=== PATIENT | male | born 2000 | race Caucasian/White ===

== ENCOUNTER 2022-02-01 16:09 | Outpatient (CLI) | payer OTHER, SELFPAY | END 2022-02-01 16:10 | disposition home or self-care (01) | PROVIDERS: Visit Provider Nurse Practitioner Adult Health | DX: Z11.1 Encounter for screening for respiratory tuberculosis (principal) | CPT/HCPCS: 36415; 86480 ==

== ENCOUNTER 2023-09-21 06:57 | Outpatient (CLI) | payer OTHER, SELFPAY | END 2023-09-21 06:58 | disposition home or self-care (01) | LOC: AMB 09-25 18:58 | PROVIDERS: Visit Provider Family Medicine | DX: R07.89 Other chest pain (principal) | CPT/HCPCS: A0425; A0427 ==

== ENCOUNTER 2023-09-21 07:22 | Emergency (ER) | payer OTHER, SELFPAY ==
[2023-09-21 07:32] VITALS: BP 114/78; PULSE 82; RESP 16; TEMP 36.8; O2SAT 97; BMI 32.0
[2023-09-21 07:47] VITALS: O2SAT 97
--- NOTE | 2023-09-21 07:47 | CRLHL7_ITS ---
For Patients: As a result of the Century Cures Act, medical imaging exams and procedure reports are released immediately into your electronic medical record. You may view this report before your referring provider. If you have questions, please contact your health care provider. INDICATION: Right-sided chest pain COMPARISON: None TECHNIQUE: PA and lateral views of the chest were acquired FINDINGS: TUBES AND LINES: None. HEART AND MEDIASTINUM: The heart size is normal. The mediastinal contour appears normal for patient age. LUNGS AND PLEURAL SPACES: The lungs appear normal.The pleural spaces are unremarkable. OSSEOUS STRUCTURES: Age-appropriate appearance. No acute focal finding. IMPRESSION: No evidence of active pulmonary disease. Dictated by Quan Martínez MD @ 09/21/2023 8:20:59 AM (Electronically Signed)
--- NOTE | 2023-09-21 07:49 | ED_ITS ---
HPI - Chest Pain General Date Seen: 09/21/23 <Jey Aguilar MD - Last Filed: 10/08/23 16:01> Chief Complaint: Chest Pain <Jey Aguilar MD - Last Filed: 10/08/23 16:01> Stated Complaint: Chest pain <Jey Aguilar MD - Last Filed: 10/08/23 16:01> Time Seen by Provider: 09/21/23 07:33 <Jey Aguilar MD - Last Filed: 10/08/23 16:01> Source: patient, EMS and RN notes reviewed <Jey Aguilar MD - Last Filed: 10/08/23 16:01> Mode of arrival: ambulatory <Jey Aguilar MD - Last Filed: 10/08/23 16:01> Limitations: no limitations <Jey Aguilar MD - Last Filed: 10/08/23 16:01> History of Present Illness HPI narrative: Patient is a 22-year-old gentleman who presents here by EMS with chest pain he describes it on his right side, came on yesterday at 4:00 p.m.. Notes that the came on suddenly. Was not associated with coughing, notes are some radiation to his right side of his back. When he takes a deep breath in. Denies any abdominal pain, this makes him feel sweaty, he did take 400 mg of ibuprofen yesterday after this came on and felt better in approximately 1 hour and is able to do normal activities, but it was still there in the background. Noted today that it was worse when he woke up, he like to set up, as opposed to lay back, this is worse with this position. Never before had this but has been to the hospital, in [facility] twice, for chest discomfort on the left side, that was worked up in normal, noted also to have some sort of issue with this neck also on another visit. No past history personally of heart or lung issues for him. There is no family history as far as he knows is heart disease in the family, no history of diabetes hypertension, or structural heart disease. Does occasionally use tobacco and marijuana, no other use of alcohol or drugs. Is on no chronic medications, has no known allergies. Received fentanyl 25 mcg in the ambulance, along with by history aspirin 324 mg, we are checking on this. Student at [employer]. <Jey Aguilar MD - Last Filed: 10/08/23 16:01> Associated symptoms: nausea and diaphoresis <Jey Aguilar MD - Last Filed: 10/08/23 16:01> Treatment prior to arrival: aspirin <Jey Aguilar MD - Last Filed: 10/08/23 16:01> Related Data Home Medications: Home Medications ?Medication ?Instructions ?Recorded ?Confirmed ibuprofen 09/21/23 <Jey Aguilar MD - Last Filed: 10/08/23 16:01> Allergies/Adverse Reactions: Allergies Allergy/AdvReac Type Severity Reaction Status Date / Time No Known Drug Allergies Allergy Verified 10/03/23 12:12 <Jey Aguilar MD - Last Filed: 10/08/23 16:01> Review of Systems Status of ROS Reports: 10 or more systems reviewed and unremarkable except as noted in History and below <Jey Aguilar MD - Last Filed: 10/08/23 16:01> [facility] Social History: Social History Smoking Status: Current some day smoker What tobacco products do you use: cigarettes How often do you have a drink containing alcohol: monthly or less AUDIT-C Alcohol total score: 1 Non-prescribed substance use: denies use <Jey Aguilar MD - Last Filed: 10/08/23 16:01> Exam Narrative Exam Narrative: I find him in room 3 sitting up, he appears to be in no distress speaking to me normally, but is splinting a little bit on the right side when he takes a deep breath in. Appears to be nontoxic, vital signs assessed and normal. Pupils are equal round reactive to light there is no scleral icterus redness is TMs are normal his oropharynx is normal there is no adenopathy anterior posterior chains his chest is good air entry bilaterally but somewhat diminished on the right side compared to the left, no extra sounds such as a rub. heart sounds are otherwise normal with no clicks murmurs or gallops, no tenderness to palpation over his chest, he is sweaty. Abdomen is soft, there is no guarding no organomegaly, negative Haile sign, bowel sounds are normal no CVA tenderness, and no tenderness over his thoracic or his lumbar on a examination skin reveals no rashes he is neurologically intact in his upper lower extremities with normal movement normal strength symmetrical, and there is no evidence of any unilateral or bilateral swelling in his lower extremities to suggest DVT. <Jey Aguilar MD - Last Filed: 10/08/23 16:01> Const Vital Signs, click to edit/add: Vital Signs - 24 hr 09/21/23 07:32 09/21/23 07:47 Temperature 98.3 F Pulse Rate [Pulse Oximeter] 82 Respiratory Rate 16 Blood Pressure [Left Upper Arm] 114/78 Pulse Oximetry 97 97 Oxygen Delivery Method Room Air <Jey Aguilar MD - Last Filed: 10/08/23 16:01> Vital Signs - 24 hr 09/21/23 07:32 09/21/23 07:47 Temperature 98.3 F Pulse Rate [Pulse Oximeter] 82 Respiratory Rate 16 Blood Pressure [Left Upper Arm] 114/78 Pulse Oximetry 97 97 Oxygen Delivery Method Room Air <Tricia Park MD - Last Filed: 09/21/23 09:16> Documenting provider has reviewed patient's vital signs: yes <Jey Aguilar MD - Last Filed: 10/08/23 16:01> Course Reevaluation(s) Time of Reevaluation #1: 09:11 <Tricia Park MD - Last Filed: 09/21/23 09:16> Reevaluation #1: Patient is feeling much better. Have reviewed negative chest x-ray for pneumothorax. His troponin is normal, his symptoms started yesterday afternoon, solitary troponin should be sufficient in this situation. His white count is normal, D-dimer is normal. He does relate to me right-sided pleuritic type chest pain. We did review pleurisy, positional changes still may make this a possibility of pericarditis, did review that. In any event he has no hemodynamic changes, labs are all normal, EKG is normal. We will plan to discharge on a course of Toradol. There is limited options for pharmacies, he does not think he can make it down to [facility]. Will give him the 5 day course of Toradol from [facility]. <Tricia Park MD - Last Filed: 09/21/23 09:16> Vital Signs Vital signs: Initial Vital Signs Temperature 98.3 F 09/21/23 07:32 Temperature Source Oral 09/21/23 07:32 Pulse Rate 82 09/21/23 07:32 Respiratory Rate 16 09/21/23 07:32 Blood Pressure 114/78 09/21/23 07:32 Blood Pressure Mean 90 09/21/23 07:32 Blood Pressure Position Sitting 09/21/23 07:32 Pulse Oximetry 97 09/21/23 07:32 Oxygen Delivery Method Room Air 09/21/23 07:32 Vital Signs Temperature 98.3 F 09/21/23 07:32 Pulse Rate 82 09/21/23 07:32 Respiratory Rate 16 09/21/23 07:32 Blood Pressure 114/78 09/21/23 07:32 Pulse Oximetry 97 09/21/23 07:32 Oxygen Delivery Method Room Air 09/21/23 07:32 Temperature 98.3 F 09/21/23 07:32 Pulse Rate 94 09/21/23 09:32 Respiratory Rate 16 09/21/23 09:32 Blood Pressure 123/77 09/21/23 09:32 Pulse Oximetry 97 09/21/23 09:32 Oxygen Delivery Method Room Air 09/21/23 09:32 <Jey Aguilar MD - Last Filed: 10/08/23 16:01> Initial Vital Signs Temperature 98.3 F 09/21/23 07:32 Temperature Source Oral 09/21/23 07:32 Pulse Rate 82 09/21/23 07:32 Respiratory Rate 16 09/21/23 07:32 Blood Pressure 114/78 09/21/23 07:32 Blood Pressure Mean 90 09/21/23 07:32 Blood Pressure Position Sitting 09/21/23 07:32 Pulse Oximetry 97 09/21/23 07:32 Oxygen Delivery Method Room Air 09/21/23 07:32 Vital Signs Temperature 98.3 F 09/21/23 07:32 Pulse Rate 82 09/21/23 07:32 Respiratory Rate 16 09/21/23 07:32 Blood Pressure 114/78 09/21/23 07:32 Pulse Oximetry 97 09/21/23 07:32 Oxygen Delivery Method Room Air 09/21/23 07:32 Temperature 98.3 F 09/21/23 07:32 Pulse Rate 94 09/21/23 09:32 Respiratory Rate 16 09/21/23 09:32 Blood Pressure 123/77 09/21/23 09:32 Pulse Oximetry 97 09/21/23 09:32 Oxygen Delivery Method Room Air 09/21/23 09:32 <Tricia Park MD - Last Filed: 09/21/23 09:16> Medications Administered Medications: Discontinued Medications Generic Name Dose Route Start Last Admin Trade Name Freq PRN Reason Stop Dose Admin Sodium Chloride 1,000 mls @ 1,000 mls/hr 09/21/23 08:00 09/21/23 09:25 0.9 % Sodium Chloride 1000 Ml IV 09/21/23 08:59 Infused .Q1H MILLICENT Infusion Ketorolac Tromethamine 30 mg 09/21/23 07:48 09/21/23 08:25 Ketorolac 30 Mg/Ml Inj IVP 09/21/23 07:49 30 mg ONCE ONE Administration <Jey Aguilar MD - Last Filed: 10/08/23 16:01> Discontinued Medications Generic Name Dose Route Start Last Admin Trade Name Freq PRN Reason Stop Dose Admin Sodium Chloride 1,000 mls @ 1,000 mls/hr 09/21/23 08:00 09/21/23 09:25 0.9 % Sodium Chloride 1000 Ml IV 09/21/23 08:59 Infused .Q1H MILLICENT Infusion Ketorolac Tromethamine 30 mg 09/21/23 07:48 09/21/23 08:25 Ketorolac 30 Mg/Ml Inj IVP 09/21/23 07:49 30 mg ONCE ONE Administration <Tricia Park MD - Last Filed: 09/21/23 09:16> MDM - Chest Pain MDM Narrative Medical decision making narrative: During the evaluation of this patient I considered multiple differential diagnosis is. The life-threatening differential diagnosis include coronary disease/[place], pulmonary embolism, pneumothorax, pneumonia, and aortic dissection. Other differential diagnosis included but were not limited to pericarditis, myocarditis, chest wall pain, GERD, esophageal rupture, rib fracture contusion, pleurisy, as well as other etiologies. <Jey Aguilar MD - Last Filed: 10/08/23 16:01> Differential Diagnosis Differential diagnosis: Likely fracture of rib, pneumothorax, stable angina, unstable angina pectoris, atypical chest pain, st elevation myocardial infarction, costochondritis, chest pain and biliary colic <Jey Aguilar MD - Last Filed: 10/08/23 16:01> Medical Records Data Attestation: I reviewed the patient's medical records. <Jey Aguilar MD - Last Filed: 10/08/23 16:01> Lab Data Attestation: I reviewed the patient's lab results. <Tricia Park MD - Last Filed: 09/21/23 09:16> Labs: Lab Results 09/21/23 09/21/23 Range/Units 07:55 08:00 WBC 10.50 (4.50-11.00) K/uL RBC 5.88 (4.30-5.90) m/uL Hgb 16.1 (13.5-17.5) gm/dL Hct 47.0 (37.0-53.0) % MCV 80 (80-100) fL MCH 27 (26-34) pg MCHC 34 (32-36) gm/dL RDW Coeff of [place] 12.4 (11.5-15.5) % Plt Count 249 (140-440) K/uL Neut % (Auto) 65.8 (42.0-72.0) % Lymph % (Auto) 26.5 (20-44) % [place] % (Auto) 5.8 (0.0-11.0) % Eos % (Auto) 1.3 (0.0-7.0) % Baso % (Auto) 0.4 (0.0-3.0) % Neut # (Auto) 6.91 (1.7-7.0) K/uL Lymph # (Auto) 2.78 (0.90-2.90) K/uL [place] # (Auto) 0.60 (0.00-0.90) K/UL Eos # (Auto) 0.14 (0.00-0.50) K/uL Baso # (Auto) 0.04 (0.00-0.30) K/uL Abs Immat Gran (auto) 0.02 (0.00-0.30) K/uL Imm/Tot Granulo (auto) 0.2 % D-Dimer Quant (PE/DVT) < 0.27 (0.00-0.50) ug/ml Sodium 138 (135-149) mmol/L Potassium 3.6 (3.6-5.1) mmol/L Chloride 105 (96-114) mmol/L Carbon Dioxide 24 (20-32) mmol/L Anion Gap 9 (7-15) mEq/L BUN 14 (5-24) mg/dL Creatinine 0.7 (0.5-1.5) mg/dL Estimated Creat Clear 184.76 Estimated GFR 135 ml/min Glucose 123 H (60-115) mg/dL Calcium 8.9 (8.4-10.6) mg/dL Total Bilirubin 0.4 (0.1-1.5) mg/dL Direct Bilirubin 0.3 (0.0-0.5) mg/dL AST 28 (12-35) U/L ALT 39 (4-50) U/L Alkaline Phosphatase 68 (40-150) U/L C-Reactive Protein 1.8 H (0.5-1.0) mg/dL Total Protein 7.8 (6.0-8.3) g/dL Albumin 4.8 (3.3-5.0) g/dL Lipase 160 (23-300) U/L SARS-CoV-2 (PCR) Negative SARS-CoV-2 (Negative) Influenza Type A (PCR) Negative PCR FLU A (Negative) Influenza Type B (PCR) Negative PCR FLU B (Negative) RSV (PCR) Negative PCR RSV (Negative) POC Troponin I 0.00 L (0.01-0.04) ng/ml <Jey Aguilar MD - Last Filed: 10/08/23 16:01> Lab Results 09/21/23 09/21/23 Range/Units 07:55 08:00 WBC 10.50 (4.50-11.00) K/uL RBC 5.88 (4.30-5.90) m/uL Hgb 16.1 (13.5-17.5) gm/dL Hct 47.0 (37.0-53.0) % MCV 80 (80-100) fL MCH 27 (26-34) pg MCHC 34 (32-36) gm/dL RDW Coeff of [place] 12.4 (11.5-15.5) % Plt Count 249 (140-440) K/uL Neut % (Auto) 65.8 (42.0-72.0) % Lymph % (Auto) 26.5 (20-44) % [place] % (Auto) 5.8 (0.0-11.0) % Eos % (Auto) 1.3 (0.0-7.0) % Baso % (Auto) 0.4 (0.0-3.0) % Neut # (Auto) 6.91 (1.7-7.0) K/uL Lymph # (Auto) 2.78 (0.90-2.90) K/uL [place] # (Auto) 0.60 (0.00-0.90) K/UL Eos # (Auto) 0.14 (0.00-0.50) K/uL Baso # (Auto) 0.04 (0.00-0.30) K/uL Abs Immat Gran (auto) 0.02 (0.00-0.30) K/uL Imm/Tot Granulo (auto) 0.2 % D-Dimer Quant (PE/DVT) < 0.27 (0.00-0.50) ug/ml Sodium 138 (135-149) mmol/L Potassium 3.6 (3.6-5.1) mmol/L Chloride 105 (96-114) mmol/L Carbon Dioxide 24 (20-32) mmol/L Anion Gap 9 (7-15) mEq/L BUN 14 (5-24) mg/dL Creatinine 0.7 (0.5-1.5) mg/dL Estimated Creat Clear 184.76 Estimated GFR 135 ml/min Glucose 123 H (60-115) mg/dL Calcium 8.9 (8.4-10.6) mg/dL Total Bilirubin 0.4 (0.1-1.5) mg/dL Direct Bilirubin 0.3 (0.0-0.5) mg/dL AST 28 (12-35) U/L ALT 39 (4-50) U/L Alkaline Phosphatase 68 (40-150) U/L C-Reactive Protein 1.8 H (0.5-1.0) mg/dL Total Protein 7.8 (6.0-8.3) g/dL Albumin 4.8 (3.3-5.0) g/dL Lipase 160 (23-300) U/L SARS-CoV-2 (PCR) Negative SARS-CoV-2 (Negative) Influenza Type A (PCR) Negative PCR FLU A (Negative) Influenza Type B (PCR) Negative PCR FLU B (Negative) RSV (PCR) Negative PCR RSV (Negative) POC Troponin I 0.00 L (0.01-0.04) ng/ml <Tricia Park MD - Last Filed: 09/21/23 09:16> Imaging Data Chest x-ray: Attestation: I have reviewed the pertinent imaging results. <Tricia Junior MD - Last Filed: 09/21/23 09:16> Radiologist's impression: Patient: JIMMY GUTIERRZE Facility:?[facility] Patient ID:?[id number] Site Patient ID:?[id number]. Site :?[id number] Study:?XRay-Chest 2V-09/21/2023 8:15:48 AM Ordering Physician:?Lauren Khanna Final Report: INDICATION: Right-sided chest pain COMPARISON: None TECHNIQUE: PA and lateral views of the chest were acquired FINDINGS: TUBES AND LINES: None. HEART AND MEDIASTINUM: The heart size is normal. The mediastinal contour appears normal for patient age. LUNGS AND PLEURAL SPACES: The lungs appear normal.The pleural spaces are unremarkable. OSSEOUS STRUCTURES: Age-appropriate appearance. No acute focal finding. IMPRESSION: No evidence of active pulmonary disease. Dictated by Quan Martínez MD @ 09/21/2023 8:20:59 AM (Electronic Signature) <Tricia Park MD - Last Filed: 09/21/23 09:16> ECG Data Attestation: I personally reviewed and interpreted this ECG as follows: <Jey Aguilar MD - Last Filed: 10/08/23 16:01> ECG interpretation date: 09/21/23 <Jey Aguilar MD - Last Filed: 10/08/23 16:01> Interpretation: EKG shows normal sinus rhythm, with a ventricular rate of 77, QRS QT PA intervals are all normal, no acute ST wave changes assessment: Normal EKG <Jey Aguilar MD - Last Filed: 10/08/23 16:01> Discharge Plan Discharge Clinical Impression: Acute pleurisy without pleural effusion <Jey Aguilar MD - Last Filed: 10/08/23 16:01> Patient Disposition: Home, Self-Care <Jey Aguilar MD - Last Filed: 10/08/23 16:01> Condition: Stable <Jey Aguilar MD - Last Filed: 10/08/23 16:01> Instructions: Pleurisy (ED) <Jey Aguilar MD - Last Filed: 10/08/23 16:01> Additional Instructions: Start Toradol and follow-up prescription instructions, can take as needed for your pain following the prescription instructions. Can supplement with Tylenol per bottle directions well on the Toradol. Once you are done with Toradol, can resume ibuprofen if you still need it. Hopefully your symptoms shell improve over the next week. If at any point you are worsening, develops fever, have increased difficulty breathing or develop cough/symptoms of infection, do recommend re-evaluation. <Jey Aguilar MD - Last Filed: 10/08/23 16:01> Activity Level: Activity as Tolerated <Jey Aguilar MD - Last Filed: 10/08/23 16:01> Activity as Tolerated <Tricia Park MD - Last Filed: 09/21/23 09:16> Discharge Diet: Regular <Jey Aguilar MD - Last Filed: 10/08/23 16:01> Regular <Tricia Park MD - Last Filed: 09/21/23 09:16> Prescriptions: No Action ibuprofen <Jey Aguilar MD - Last Filed: 10/08/23 16:01> Follow Up/Referrals: Provider,Not a Local [Primary Care Provider] - <Jey Aguilar MD - Last Filed: 10/08/23 16:01> Stand Alone Forms: [facility] Info Instructions <Jey Aguilar MD - Last Filed: 10/08/23 16:01>
[2023-09-21 08:15] LABS: Basophils Absolute Auto 0.04 K/uL (0.00-0.30); Basophils Percent Auto 0.4 % (0.0-3.0); Eosinophils Absolute Auto 0.14 K/uL (0.00-0.50); Eosinophils Percent Auto 1.3 % (0.0-7.0); Hemoglobin* 16.1 gm/dL (13.5-17.5); Immature Granulocytes Abs Auto 0.02 K/uL (0.00-0.30); Immature Granulocytes Pct Auto 0.2 %; Lymphocytes Absolute Auto 2.78 K/uL (0.90-2.90); Lymphocytes Percent Auto 26.5 % (20-44); Mean Corpuscular HGB Conc 34 gm/dL (32-36); Mean Corpuscular Hemoglobin 27 pg (26-34); Mean Corpuscular Volume 80 fL (80-100); Monocytes Percent Auto 5.8 % (0.0-11.0); Neutrophils Absolute Auto 6.91 K/uL (1.7-7.0); Neutrophils Percent Auto 65.8 % (42.0-72.0); Platelet Count* 249 K/uL (140-440); RDW Coefficient of Variation % 12.4 % (11.5-15.5); Red Blood Count 5.88 m/uL (4.30-5.90)
[2023-09-21 08:16] LABS: Slide Review Reflex No
[2023-09-21] MEDS: 0.9 % SODIUM CHLORIDE 1000 ml 1,000 ML IV (08:25)
[2023-09-21] MEDS: KETOROLAC 30 MG/ML inj IVP (08:25)
[2023-09-21 08:27] LABS: Albumin* 4.8 g/dL (3.3-5.0); Chloride* 105 mmol/L (96-114)
[2023-09-21 08:28] LABS: Potassium* 3.6 mmol/L (3.6-5.1); Sodium* 138 mmol/L (135-149)
[2023-09-21 08:30] VITALS: BP 121/79; PULSE 76; RESP 16; O2SAT 98
[2023-09-21 08:30] LABS: Creatinine* 0.7 mg/dL (0.5-1.5); Est. Creatinine Clearance* 184.76; Estimated Glomerular Filt Rate 135 ml/min
[2023-09-21 08:31] LABS: Alanine Aminotransferase* 39 U/L (4-50); Alkaline Phosphatase* 68 U/L (40-150); Anion Gap 9 mEq/L (7-15); Aspartate Amino Transferase* 28 U/L (12-35); Bilirubin Direct* 0.3 mg/dL (0.0-0.5); Bilirubin Total* 0.4 mg/dL (0.1-1.5); Blood Urea Nitrogen* 14 mg/dL (5-24); Calcium* 8.9 mg/dL (8.4-10.6); Carbon Dioxide* 24 mmol/L (20-32); Glucose* 123 mg/dL (60-115); Lipase* 160 U/L (23-300); Total Protein* 7.8 g/dL (6.0-8.3)
[2023-09-21 08:34] LABS: C Reactive Protein* 1.8 mg/dL (0.5-1.0); D Dimer Quantitative* < 0.27 ug/ml (0.00-0.50)
[2023-09-21 09:03] LABS: PCR FLU A Negative PCR FLU A (Negative); PCR FLU B Negative PCR FLU B (Negative); PCR RSV Negative PCR RSV (Negative); SARS PCR* Negative SARS-CoV-2 (Negative)
[2023-09-21 09:25] VITALS: PULSE 88; O2SAT 96
[2023-09-21 09:30] VITALS: PULSE 84; O2SAT 97
[2023-09-21 09:32] VITALS: BP 123/77; PULSE 94; RESP 16; O2SAT 97
== END 2023-09-21 09:38 | disposition home or self-care (01) ==
PROVIDERS: Emergency Provider Family Medicine
DX: R09.1 Pleurisy (principal)
CPT/HCPCS: 36415; 71046; 80048; 80076; 83690; 84484; 85025; 85379; 86140; 87631; 93005; 94761; 96361; 96374; 99284; J1885; J7030

== ENCOUNTER 2023-10-03 12:08 | Emergency (ER) | payer OTHER, SELFPAY ==
[2023-10-03] VITALS (7 sets, daily range): BP systolic 131; BP diastolic 91; PULSE 76–92; RESP 16; TEMP 35.9; O2SAT 95–97; BMI 37.4
--- NOTE | 2023-10-03 12:34 | ED_ITS ---
HPI - General Adult General Chief complaint: Shortness of Breath/Dyspnea Stated complaint: chest pain Time Seen by Provider: 10/03/23 12:16 History of Present Illness HPI narrative: c/o pain in the back and right shoulder pain. pt states that they were seen here on the 20 of september and was diagnosed with acute pleurisy. pt took 325mg of Tylenol at 1100. 22-year-old man presenting to the emergency department with concern of continued pain in the right chest and radiating into his back/right shoulder. He is just thinks that he probably should be better by now. Has been taking ketorolac regularly. Has also been taking ibuprofen. A maybe that he even got worse though after dosings of ibuprofen. Waxes and wanes in intensity. He describes a sharp pain clearly pleuritic. Particularly bad the with rotation. All began after having a smoke with a friend. Further discussion does reveal fairly regular cigarette smoking. Goes through a pack a week he discloses. When seen here 12 days ago was diagnosed with pleurisy/pleuritis and treated this above. D-dimer was negative at that time. Chest x-ray also was done. He has been doing some reading and now is concerns about potential evolution of pleural effusion. He wonders whether not sleeping in a colder environment may have contributed to this event. He would like to know why this happens. Is even worried about potential lung cancer. I remind him that the chest x-ray looks clear in that regard. No fever. Has not had any lower extremity pain or swelling. Related Data Home Medications ?Medication ?Instructions ?Recorded ?Confirmed ibuprofen 09/21/23 Allergies Allergy/AdvReac Type Severity Reaction Status Date / Time No Known Drug Allergies Allergy Verified 10/03/23 12:12 Review of Systems Status of ROS: Reports: 6 or more systems reviewed and unremarkable except as noted in History and below [facility] Social History Smoking Status: Current some day smoker What tobacco products do you use: cigarettes How often do you have a drink containing alcohol: monthly or less AUDIT-C Alcohol total score: 1 Non-prescribed substance use: denies use Exam Narrative: Exam Narrative: Pleasant. NAD. Splinting a little bit in his breathing. Mildly tachypneic. Lungs are clear. Heart with regular rate rhythm without murmur rub or gallop. Abdomen is soft and nontender. Skin is warm dry without rash. Pain is not reproducible to palpation over the chest wall or the back/shoulders. Strong and equal carotid upstroke. No supraclavicular crepitus. Or extremities without edema or pain. Const: Vital Signs, click to edit/add: Vital Signs - 24 hr 10/03/23 12:13 10/03/23 12:36 10/03/23 12:45 Temperature 96.6 F L Pulse Rate 79 76 Pulse Rate [Pulse Oximeter] 80 Respiratory Rate 16 Blood Pressure [Ri ght Upper Arm] 131/91 H Pulse Oximetry 97 96 96 Oxygen Delivery Me thod Room Air 10/03/23 13:00 10/03/23 13:15 10/03/23 13:30 Temperature Pulse Rate 79 83 79 Pulse Rate [Pulse Oximeter] Respiratory Rate Blood Pressure [Ri ght Upper Arm] Pulse Oximetry 97 95 95 Oxygen Delivery Me thod 10/03/23 13:45 Temperature Pulse Rate 92 Pulse Rate [Pulse Oximeter] Respiratory Rate Blood Pressure [Ri ght Upper Arm] Pulse Oximetry 96 Oxygen Delivery Me thod Course Vital Signs Vital signs: Initial Vital Signs Temperature 96.6 F L 10/03/23 12:13 Temperature Source Temporal Artery Scan 10/03/23 12:13 Pulse Rate 80 10/03/23 12:13 Respiratory Rate 16 10/03/23 12:13 Blood Pressure 131/91 H 10/03/23 12:13 Blood Pressure Mean 104 10/03/23 12:13 Blood Pressure Position High-Fowlers 10/03/23 12:13 Pulse Oximetry 97 10/03/23 12:13 Oxygen Delivery Method Room Air 10/03/23 12:13 Vital Signs Temperature 96.6 F L 10/03/23 12:13 Pulse Rate 80 10/03/23 12:13 Respiratory Rate 16 10/03/23 12:13 Blood Pressure 131/91 H 10/03/23 12:13 Pulse Oximetry 97 10/03/23 12:13 Oxygen Delivery Method Room Air 10/03/23 12:13 Temperature 96.6 F L 10/03/23 12:13 Pulse Rate 92 10/03/23 13:45 Respiratory Rate 16 10/03/23 12:13 Blood Pressure 131/91 H 10/03/23 12:13 Pulse Oximetry 96 10/03/23 13:45 Oxygen Delivery Method Room Air 10/03/23 12:13 Medications Administered Medications: Discontinued Medications Generic Name Dose Route Start Last Admin Trade Name Ryland DRIVER Reason Stop Dose Admin Ibuprofen 600 mg 10/03/23 13:08 10/03/23 13:25 Ibuprofen 200 Mg Tablet PO 10/03/23 13:09 600 mg ONCE ONE Administration Prednisone 60 mg 10/03/23 13:08 10/03/23 13:25 Prednisone 20 Mg Tablet PO 10/03/23 13:09 60 mg ONCE ONE Administration Medical Decision Making MDM Narrative Medical decision making narrative: Presentation and history I think is still consistent with pleuritis. EKG did not show evidence of pericarditis last time. Differential would also include pulmonary embolus. Possible pneumonia particularly with the splinting I am seeing hearing might have developed some atelectasis that would make him more prone to this. Possible pneumothorax or pneumomediastinum as well. Will monitor here in the emergency department. Check EKG-see below. Repeat [facility] x-ray. Repeat chest x-ray reviewed by me does not appear to show any pneumothorax. There is some atelectatic change in the right base. No pneumonia. Normal cardiac silhouette. Did give ibuprofen here in the emergency department along with prednisone. He was able to fall asleep. This is reassuring I would say for pain control going forward. See patient discharge plan for further discussion Medical Records Medical records reviewed: Yes I reviewed the patient's medical records Lab Data Lab results reviewed: Yes I reviewed the patient's lab results ECG Data Attestation: I personally reviewed and interpreted this ECG as follows: (Normal sinus rhythm at a rate of 81. Similar to prior with what would consider equivocal changes as indicated) Discharge Plan Discharge Clinical Impression: Pleuritis, Pleuritic chest pain, Nicotine dependence Patient Disposition: Home w/ Parent or Adult Condition: Improved Additional Instructions: Return/be seen for persistent and increasing/uncontrolled pain, persistent and increasing shortness of breath, fever. See information from [employer] that might be helpful as you try to quit smoking. Would also schedule appointment in primary care clinic as there are medications along with nicotine replacement of various forms that can be helpful in this process. Yes, I would encourage you toward a healthy diet and mostly from plants; this does not exclude protein. Be careful not to drink too many calories. Try to get in a little heart pumping exercise most days of the week; this should also include weights. Stay well-hydrated. Try to get quality and regular sleep. Can take up to ibuprofen 800 mg per dose over this next week for breakthrough pain; this can be combined with up to 1000 mg of acetaminophen per dose. Otherwise I am prescribing daily prednisone from [facility]. Starting tomorrow take 40 mg daily (can split the dose into twice a day dosing if you like) for 5 days then 20 mg daily for 3 days. Prescriptions: No Action ibuprofen Follow Up/Referrals: Provider,Not a Local [Primary Care Provider] - Stand Alone Forms: [employer] Info Instructions
--- NOTE | 2023-10-03 13:09 | CRLHL7_ITS ---
For Patients: As a result of the Century Cures Act, medical imaging exams and procedure reports are released immediately into your electronic medical record. You may view this report before your referring provider. If you have questions, please contact your health care provider. INDICATION: Left-sided upper chest/back pain. Pleuritic pain. TECHNIQUE: Chest 2 views. COMPARISON: 09/21/2023. FINDINGS: No pneumothorax or pleural effusion. Right basilar opacities are similar. There is mild elevation of the right hemidiaphragm. Lungs are otherwise clear. Cardiac and mediastinal contours are within normal limits. Upper abdomen and osseous structures as imaged show no acute abnormality. IMPRESSION: No evidence of acute cardiopulmonary disease. Suspected right basilar atelectasis is similar in appearance. Dictated by Dilip Rojas MD @ 10/03/2023 1:35:04 PM (Electronically Signed)
[2023-10-03] MEDS: IBUPROFEN 200 MG TABLET 600 MG PO (13:25)
[2023-10-03] MEDS: predniSONE 20 MG TABLET 60 MG PO (13:25)
== END 2023-10-03 15:00 | disposition home or self-care (01) ==
PROVIDERS: Emergency Provider Family Medicine
DX: R07.1 Chest pain on breathing (principal); R09.1 Pleurisy; F17.200 Nicotine dependence, unspecified, uncomplicated
CPT/HCPCS: 71046; 99284; A9270; J7512

== ENCOUNTER 2024-03-06 11:11 | Emergency (ER) | payer OTHER, SELFPAY ==
[2024-03-06] VITALS (21 sets, daily range): BP systolic 106–128; BP diastolic 69–83; PULSE 118–131; RESP 18–26; TEMP 37.1; O2SAT 93–96; BMI 35.9
--- NOTE | 2024-03-06 11:36 | ED.FEVER ---
HPI - Fever General Time Seen by Provider: 11:36 Date Seen: 03/06/24 Chief Complaint: Fever Stated Complaint: fever/body aches Time Seen by Provider: 03/06/24 11:30 Source: patient, RN notes reviewed and old records reviewed Mode of arrival: ambulatory Limitations: no limitations History of Present Illness HPI Narrative: 23-year-old male who comes in today with body aches, fever along with back pain. Patient notes 2 days of fevers between 100-102?, has been taking Tylenol and ibuprofen for this. Also notes generalized body aches especially in the back, lower chest. This is worse lying down worse with breathing. Does feel short of breath. Denies cough, sore throat, runny nose, leg swelling. Reports he has had similar episodes to this intermittently since September, was seen in the emergency department in the clinic for this over the summer, otherwise has been treating this at home with Tylenol and ibuprofen when it happens. Denies any joint swelling or pain. No rashes. Related Data Home Medications ?Medication ?Instructions ?Recorded ?Confirmed ibuprofen 09/21/23 Allergies Allergy/AdvReac Type Severity Reaction Status Date / Time No Known Drug Allergies [facility]ergy Verified 03/06/24 11:24 [facility] Social History Smoking Status: Current some day smoker What tobacco products do you use: cigarettes How often do you have a drink containing alcohol: monthly or less AUDIT-C Alcohol total score: 1 Non-prescribed substance use: denies use Exam Narrative Exam Narrative: General: Well-developed and well-nourished, no acute distress Head: Atraumatic and normocephalic Eyes: Pupils are equal reactive, extraocular motions intact, conjunctiva clear ENT: External nose and ears are normal, posterior pharynx without erythema or exudate Neck: No midline cervical tenderness, full spontaneous range of motion the neck, trachea midline, no adenopathy Heart: Tachycardic but regular, no murmurs Lungs: Clear to auscultation bilaterally without wheezes or crackles Abdomen: Soft, nontender, nondistended with active bowel sounds Musculoskeletal: No tenderness, deformity, or edema Neurologic: Awake, alert, and oriented x3, no gross focal neurologic deficits, cranial nerves intact as tested Psych: Mood and affect are appropriate Skin: No rashes Const Vital Signs, click to edit/add: Vital Signs - 24 hr 03/06/24 11:11 03/06/24 11:15 03/06/24 13:59 Temperature 98.8 F Pulse Rate 123 H Pulse Rate [Pulse Oximeter] 127 H Respiratory Rate 18 26 H Blood Pressure 121/81 Blood Pressure [Right Upper Arm] 106/69 Pulse Oximetry 96 95 95 Oxygen Delivery Method Room Air 03/06/24 14:00 03/06/24 14:15 03/06/24 14:30 Temperature Pulse Rate 127 H 131 H 129 H Pulse Rate [Pulse Oximeter] Respiratory Rate Blood Pressure Blood Pressure [Right Upper Arm] Pulse Oximetry 95 94 93 Oxygen Delivery Method 03/06/24 14:45 03/06/24 14:57 03/06/24 15:00 Temperature Pulse Rate 126 H 127 H 123 H Pulse Rate [Pulse Oximeter] Respiratory Rate 18 Blood Pressure 122/80 Blood Pressure [Right Upper Arm] Pulse Oximetry 94 95 95 Oxygen Delivery Method 03/06/24 15:02 03/06/24 15:03 03/06/24 15:15 Temperature Pulse Rate 125 H 122 H 121 H Pulse Rate [Pulse Oximeter] Respiratory Rate Blood Pressure 128/83 Blood Pressure [Right Upper Arm] Pulse Oximetry 95 96 95 Oxygen Delivery Method 03/06/24 15:30 03/06/24 15:32 Temperature Pulse Rate 118 H 124 H Pulse Rate [Pulse Oximeter] Respiratory Rate 20 Blood Pressure 113/78 Blood Pressure [Right Upper Arm] Pulse Oximetry 95 95 Oxygen Delivery Method Course Course ED Course: Patient seen and examined, reviewed primary care office visit from October 2023 when patient was seen for follow-up of chest pain is subjective fever, he previously was seen in the emergency department in September 2019 for for chest pain and shortness of breath, was diagnosed with pleurisy and was given Toradol which improved his symptoms. Patient presents today with shortness of breath, generalized body aches, fever which he says is been going on for couple of days. On exam here, patient is afebrile but tachycardic, no respiratory distress, lungs are clear. Patient has had similar episodes intermittently for the last couple of months. Low risk for pulmonary embolism by Wells criteria but cannot PERC out, D-dimer ordered initially but due to ongoing concerning symptoms a negative D-dimer in the past, as well as could concern for lung parenchymal or pericardial disease, CT PE study ordered. Also consider pericarditis, community-acquired pneumonia, or rheumatologic condition. Toradol ordered for symptom management along with labs. Reevaluation(s) Time of Reevaluation #1: 12:31 Reevaluation #1: Patient refuses EKG, cardiac monitoring. Time of Reevaluation #2: 13:03 Reevaluation #2: Labs independently interpreted by me with mild leukocytosis at 12.89, normal hemoglobin, negative D-dimer, normal basic panel, normal magnesium, normal hepatic panel, normal lipase, negative respiratory swab. Time of Reevaluation #3: 13:07 Reevaluation #3: CT scan of the chest independently interpreted by me with right pleural effusion, no evidence for large central pulmonary embolism, also evidence for pericardial effusion. Radiology interpretation with small to moderate pericardial effusion measuring about 1 cm, as well as a mass in the right pericardial phrenic angle which may be neoplastic, also prominent mediastinal soft tissue which could be a thymic mass or mediastinal mass. Updated patient with findings and plan, patient will need to be transferred for further evaluation and monitoring of pericardial effusion as well as further evaluation for mediastinal masses and likely malignant effusion. Contacted [facility] for transfer. Additional Reevaluation(s): 14:05 Rechecked with [facility] for transfer. EKG independently interpreted by me performed at 1:55 p.m. demonstrates sinus tachycardia rate 124, no acute ST elevations or depressions, normal axis, normal intervals, AL 180, QTC 405. No prior for comparison 14:[address] Alves, cardiology, recommends echocardiogram tomorrow, colchicine 0.6mg BID. 15:[address] Shea, hospitalist at [place] who accepts patient for transfer. 17:32 patient remains tachycardic but otherwise stable in the department. Waiting for transport. Vital Signs Vital signs: Initial Vital Signs Respiratory Rate 18 03/06/24 11:11 Respiratory Effort Normal, Spontaneous 03/06/24 11:11 Respiratory Depth Normal 03/06/24 11:11 Pulse Oximetry 96 03/06/24 11:11 Sepsis Action Taken by Nursing No Action Required 03/06/24 11:11 Vital Signs Respiratory Rate 18 03/06/24 11:11 Pulse Oximetry 96 03/06/24 11:11 Temperature 98.8 F 03/06/24 11:15 Pulse Rate 124 H 12/18/24 15:32 Respiratory Rate 20 03/06/24 15:32 Blood Pressure 113/78 03/06/24 15:32 Pulse Oximetry 95 03/06/24 15:32 Oxygen Delivery Method Room Air 03/06/24 11:15 MDM - Fever Lab Data Labs: Lab Results 03/06/24 03/06/24 03/06/24 Range/Units 11:19 12:02 12:08 WBC 12.89 H (4.50-11.00) K/uL RBC 5.63 (4.30-5.90) m/uL Hgb 15.1 (13.5-17.5) gm/dL Hct 43.7 (37.0-53.0) % MCV 78 L (80-100) fL MCH 27 (26-34) pg MCHC 35 (32-36) gm/dL RDW Coeff of Ford 13.5 (11.5-15.5) % Plt Count 249 (140-440) K/uL Neut % (Auto) 71.6 (42.0-72.0) % Lymph % (Auto) 19.1 L (20-44) % [place] % (Auto) 8.5 (0.0-11.0) % Eos % (Auto) 0.3 (0.0-7.0) % Baso % (Auto) 0.3 (0.0-3.0) % Neut # (Auto) 9.20 H (1.7-7.0) K/uL Lymph # (Auto) 2.50 (0.90-2.90) K/uL [place] # (Auto) 1.10 H (0.00-0.90) K/UL Eos # (Auto) 0.00 (0.00-0.50) K/uL Baso # (Auto) 0.00 (0.00-0.30) K/uL Abs Immat Gran (auto) 0.00 (0.00-0.30) K/uL Imm/Tot Granulo (auto) 0.2 % ESR 14 (2-15) mm/hr D-Dimer Quant (PE/DVT) 0.50 (0.00-0.50) ug/ml Sodium 137 (135-149) mmol/L Potassium 3.8 (3.6-5.1) mmol/L Chloride 103 (96-114) mmol/L Carbon Dioxide 24 (20-32) mmol/L Anion Gap 10 (7-15) mEq/L BUN 11 (5-24) mg/dL Creatinine 0.6 (0.5-1.5) mg/dL Estimated Creat Clear 201.09 Estimated GFR 141 ml/min Glucose 130 H (60-115) mg/dL Calcium 9.1 (8.4-10.6) mg/dL Magnesium 2.0 (1.5-2.6) mg/dL Total Bilirubin 0.8 (0.1-1.5) mg/dL Direct Bilirubin 0.2 (0.0-0.5) mg/dL AST 22 (12-35) U/L ALT 27 (4-50) U/L Alkaline Phosphatase 53 (40-150) U/L C-Reactive Protein 15.9 H (0.5-1.0) mg/dL NT-Pro-B Natriuret Pep 24 pg/mL Total Protein 7.4 (6.0-8.3) g/dL Albumin 4.3 (3.3-5.0) g/dL Lipase 78 (23-300) U/L SARS-CoV-2 (PCR) Negative SARS-CoV-2 (Negative) Influenza Type A (PCR) Negative PCR FLU A (Negative) Influenza Type B (PCR) Negative PCR FLU B (Negative) RSV (PCR) Negative PCR RSV (Negative) Lab Acknowledgement POC Troponin I 0.17 H (0.01-0.04) ng/ml 03/06/24 03/06/24 Range/Units 13:24 14:27 WBC (4.50-11.00) K/uL RBC (4.30-5.90) m/uL Hgb (13.5-17.5) gm/dL Hct (37.0-53.0) % MCV (80-100) fL MCH (26-34) pg MCHC (32-36) gm/dL RDW Coeff of Ford (11.5-15.5) % Plt Count (140-440) K/uL Neut % (Auto) (42.0-72.0) % Lymph % (Auto) (20-44) % [place] % (Auto) (0.0-11.0) % Eos % (Auto) (0.0-7.0) % Baso % (Auto) (0.0-3.0) % Neut # (Auto) (1.7-7.0) K/uL Lymph # (Auto) (0.90-2.90) K/uL [place] # (Auto) (0.00-0.90) K/UL Eos # (Auto) (0.00-0.50) K/uL Baso # (Auto) (0.00-0.30) K/uL Abs Immat Gran (auto) (0.00-0.30) K/uL Imm/Tot Granulo (auto) % ESR (2-15) mm/hr D-Dimer Quant (PE/DVT) (0.00-0.50) ug/ml Sodium (135-149) mmol/L Potassium (3.6-5.1) mmol/L Chloride (96-114) mmol/L Carbon Dioxide (20-32) mmol/L Anion Gap (7-15) mEq/L BUN (5-24) mg/dL Creatinine (0.5-1.5) mg/dL Estimated Creat Clear Estimated GFR ml/min Glucose (60-115) mg/dL Calcium (8.4-10.6) mg/dL Magnesium (1.5-2.6) mg/dL Total Bilirubin (0.1-1.5) mg/dL Direct Bilirubin (0.0-0.5) mg/dL AST (12-35) U/L ALT (4-50) U/L Alkaline Phosphatase (40-150) U/L C-Reactive Protein (0.5-1.0) mg/dL NT-Pro-B Natriuret Pep pg/mL Total Protein (6.0-8.3) g/dL Albumin (3.3-5.0) g/dL Lipase (23-300) U/L SARS-CoV-2 (PCR) (Negative) Influenza Type A (PCR) (Negative) Influenza Type B (PCR) (Negative) RSV (PCR) (Negative) Lab Acknowledgement Test Added POC Troponin I 0.15 H (0.01-0.04) ng/ml Discharge Plan Discharge Clinical Impression: Pericardial effusion, Mediastinal mass, Elevated troponin Patient Disposition: [facility]
--- NOTE | 2024-03-06 11:50 | CRLHL7_ITS ---
For Patients: As a result of the Century Cures Act, medical imaging exams and procedure reports are released immediately into your electronic medical record. You may view this report before your referring provider. If you have questions, please contact your health care provider. INDICATION: Pleuritic chest pain. Tachycardia. Dyspnea. Recurrent chest pain. COMPARISON: None TECHNIQUE: : CT examination of the chest was performed with the uneventful intravenous administration of 95 cc of Isovue 370 while thin axial sections were obtained from above the apices of the lungs to the lung bases. The examination was timed as a pulmonary artery angiogram. Please note that all CT scans at this facility use dose modulation, iterative reconstruction, and/or weight-based dosing when appropriate to reduce radiation dose to as low as reasonably achievable. FINDINGS: : HEART and MEDIASTINUM: The heart size is normal. There is a small to moderate pericardial effusion measuring 1 centimeter. No evidence of tamponade. There is a mass at the right pericardiophrenic angle measuring 3.6 x 2.6 x 3.6 centimeters. While this is a common location for a benign cystic pericardial mass, this is not water density and is therefore not a characteristically benign cystic lesion. This could be neoplastic such as adenopathy or other low mediastinal mass. There is also abnormal superior mediastinal soft tissue. While this could be thymic hyperplasia, it could represent another thymic mass such as thymoma or another mediastinal mass such as lymphoma. Appropriate follow-up is advised regarding the potential neoplastic findings PULMONARY ARTERIAL CIRCULATION: Limited by motion but no indication of acute pulmonary embolus. LUNGS and PLEURAL SPACES: Bibasilar opacities probably due to atelectasis. Small right effusion. No pneumothorax. VISUALIZED UPPER ABDOMEN: Enlarged fatty infiltrated liver. Otherwise, the limited visualized upper abdominal structures appear normal. OSSEOUS STRUCTURES: Age-appropriate appearance. No acute fracture or destructive process. TUBES and LINES: None. IMPRESSION: 1. Small to moderate pericardial effusion. No evidence of tamponade though this is above that seen physiologically. This measures about 1 centimeter. 2. Mass at the right pericardial phrenic angle measuring 3.6 x 2.6 x 3.6 centimeters. This is not simple cystic and could be neoplastic such as adenopathy or a low component of a mediastinal mass. 3. Prominent mediastinal soft tissue. This could represent hyperplastic thymic tissue the could represent a thymic mass or a non thymic mediastinal mass. 4. Bibasilar atelectasis, right greater than left and small right effusion. 5. Limited due to motion but no indication of pulmonary embolus. 6. Enlarged fatty infiltrated liver. 7. Appropriate follow-up recommended regarding the potentially neoplastic findings Please note that all CT scans at this facility use dose modulation, iterative reconstruction, and/or weight-based dosing when appropriate to reduce radiation dose to as low as reasonably achievable. Dictated by Quan Martínez MD @ 03/06/2024 1:04:45 PM (Electronically Signed)
[2024-03-06 12:23] LABS: PCR FLU A Negative PCR FLU A (Negative); PCR FLU B Negative PCR FLU B (Negative); PCR RSV Negative PCR RSV (Negative); SARS PCR* Negative SARS-CoV-2 (Negative)
[2024-03-06 12:31] LABS: Basophils Percent Auto 0.3 % (0.0-3.0); Eosinophils Percent Auto 0.3 % (0.0-7.0); Hematocrit 43.7 % (37.0-53.0); Hemoglobin* 15.1 gm/dL (13.5-17.5); Immature Granulocytes Pct Auto 0.2 %; Lymphocytes Percent Auto 19.1 % (20-44); Mean Corpuscular HGB Conc 35 gm/dL (32-36); Mean Corpuscular Hemoglobin 27 pg (26-34); Mean Corpuscular Volume 78 fL (80-100); Monocytes Percent Auto 8.5 % (0.0-11.0); Neutrophils Percent Auto 71.6 % (42.0-72.0); Platelet Count* 249 K/uL (140-440); RDW Coefficient of Variation % 13.5 % (11.5-15.5); Red Blood Count 5.63 m/uL (4.30-5.90); White Blood Count* 12.89 K/uL (4.50-11.00)
[2024-03-06 12:33] LABS: Slide Review Reflex No
[2024-03-06 12:36] LABS: Chloride* 103 mmol/L (96-114); Potassium* 3.8 mmol/L (3.6-5.1); Sodium* 137 mmol/L (135-149)
[2024-03-06 12:39] LABS: Anion Gap 10 mEq/L (7-15); Blood Urea Nitrogen* 11 mg/dL (5-24); Carbon Dioxide* 24 mmol/L (20-32); Creatinine* 0.6 mg/dL (0.5-1.5); Est. Creatinine Clearance* 201.09; Estimated Glomerular Filt Rate 141 ml/min; Glucose* 130 mg/dL (60-115)
[2024-03-06 12:40] LABS: Calcium* 9.1 mg/dL (8.4-10.6)
[2024-03-06 12:51] LABS: NT Pro B Type NatriureticPept* 24 pg/mL
[2024-03-06 12:54] LABS: Albumin* 4.3 g/dL (3.3-5.0)
[2024-03-06 12:57] LABS: Alkaline Phosphatase* 53 U/L (40-150); Aspartate Amino Transferase* 22 U/L (12-35); Bilirubin Direct* 0.2 mg/dL (0.0-0.5); Bilirubin Total* 0.8 mg/dL (0.1-1.5); Total Protein* 7.4 g/dL (6.0-8.3)
[2024-03-06 12:58] LABS: Alanine Aminotransferase* 27 U/L (4-50); Lipase* 78 U/L (23-300)
[2024-03-06 13:25] LABS: Troponin, Point-of-Care* 0.17 ng/ml (0.01-0.04)
[2024-03-06 14:26] LABS: C Reactive Protein* 15.9 mg/dL (0.5-1.0)
[2024-03-06 14:46] LABS: Troponin, Point-of-Care* 0.15 ng/ml (0.01-0.04)
[2024-03-06 14:51] LABS: Erythrocyte SedimentationRate* 14 mm/hr (2-15)
--- NOTE | 2024-03-06 18:29 | ED.NURSE ---
Patient is transfering via [facility] to [id number].
== END 2024-03-06 18:31 | disposition short-term general hospital (02) ==
PROVIDERS: Emergency Provider Family Medicine
DX: I31.39 Other pericardial effusion (noninflammatory) (principal); J98.59 Other diseases of mediastinum, not elsewhere classified; R79.89 Other specified abnormal findings of blood chemistry
CPT/HCPCS: 36415; 71275; 80048; 80076; 83690; 83735; 83880; 84484; 85025; 85379; 85651; 86140; 87631; 93005; 96374; 99285; Q9967

== ENCOUNTER 2024-03-06 18:22 | Outpatient (CLI) | payer OTHER, SELFPAY | END 2024-03-06 18:23 | disposition home or self-care (01) | LOC: AMB 03-08 10:38 | PROVIDERS: Visit Provider Family Medicine | DX: R53.81 Other malaise (principal); R50.9 Fever, unspecified | CPT/HCPCS: A0425; A0427 ==

== ENCOUNTER 2024-03-28 19:06 | Emergency (ER) | payer OTHER, SELFPAY ==
[2024-03-28] VITALS (24 sets, daily range): BP systolic 102–132; BP diastolic 61–87; PULSE 119–280; RESP 20; TEMP 36.9; O2SAT 93–99; BMI 40.2
--- OUTSIDE RECORDS SUMMARY | 2024-03-28 19:07 | XMS_ITS | Clinical Summary ---
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 Venipuncture / Unknown 03/07/2024 1:18 PM INTAKE MANAGER 03/07/2024 1:23 PM INTAKE MANAGER Mau CHAMORRO SEND OUTS Final Res ult [facility] [address] [place] [address], * LD,TOTAL (03/07/2024 1:18 PM INTAKE MANAGER) Only the most recent of2 resultswithin the time period is included. Pathologist [facility] LD,TOTAL 139 135 - 225 IU/L 03/07/2024 2:12 PM INTAKE MANAGER [facility] Blood BLOOD SPECIMEN / Unknown Venipuncture / Unknown 03/07/2024 1:18 PM INTAKE MANAGER 03/07/2024 1:23 PM INTAKE MANAGER Mau CHAMORRO CHEMISTRY Final Res ult [facility] SENDOUT INTERNAL [address] [id number] [address] [place] [address] * ECHO TTE COMPLETE W CONTRAST (03/07/2024 12:36 PM INTAKE MANAGER) EJECTION FRACTION 55-60% PROSOLV Anatomical Region Laterality Modality Ultrasound 03/07/2024 11:5 3 AM INTAKE MANAGER Narrative 03/07/2024 1:13 PM INTAKE MANAGER [address] [address] Main: [email or web address] Transthoracic Echo Report LORRAINE BOONE ID: [id number] Age: 23 : 2000 Ordering Provider: HAROON SUNSHINE Exam Date: 03/07/2024 11:53 Gender: M Travel Manager: EDITH Height: 68 in BSA: 2.27 m BP: 132 / 80 Weight: 256 lbs BMI: 38.9 kg/m HR: 116 Location: Inpatient (Portable) Rhythm: Sinus Tachycardia Procedure Components: 2D imaging with contrast, Color Doppler, Spectral Doppler Indications: acute pericarditis, Acute pericarditis, unspecified Technical Quality: Fair Contrast: Definity Constrast Dose (ml): 0.30 [facility]#: [id number] Final Conclusion 1. Small circumferential pericardial effusion, with some echocardiographic signs of hemodynamic effect, i.e. tamponade indicators (RV diastolic collapse seen best in clip 3, subtle RA collapse, and excessive respiratory variation in mitral and tricuspid inflow). 2. Calculated left ventricular ejection fraction (modified Arana technique) is 60 %. 3. No regional wall motion abnormalities. 4. Normal right ventricular chamber size. Normal right ventricular systolic function. Discussed with Dr. Betancourt. Estimated EF: 55-60% FINDINGS Left Ventricle Normal left ventricular chamber size. Normal left ventricular wall thickness. Normal left ventricular systolic function. Calculated left ventricular ejection fraction (modified Arana technique) is 60 %. No regional wall motion abnormalities. Diastolic Function Indeterminate left ventricular diastolic function due to fused mitral E and A waves. Right Ventricle Normal right ventricular chamber size. Normal right ventricular systolic function. Right ventricular systolic pressure cannot be estimated due to inability to detect peak tricuspid regurgitation Doppler velocity. Left Atrium Normal left atrial size. Left atrial volume index is 30 ml/m . Right Atrium Normal right atrial size. Atrial Septum No evidence of inter-atrial shunt by color flow Doppler. Aortic Valve Trileaflet aortic valve. No aortic valve stenosis. No aortic valve regurgitation. Mitral Valve Normal mitral valve. No mitral valve stenosis. Trivial mitral valve regurgitation. Tricuspid Valve Normal tricuspid valve. Trivial tricuspid valve regurgitation. Pulmonic Valve Normal pulmonary valve. No pulmonary valve stenosis. No pulmonary valve regurgitation. Pericardium Small circumferential pericardial effusion, with some echocardiographic signs of hemodynamic effect (RV diastolic collapse seen best in clip 3, subtle RA collapse, and excessive respiratory variation in mitral and tricuspid inflow). Aorta Normal aortic sinus of Valsalva dimension (3.5 cm). Normal ascending aorta dimension (3.0 cm). Inferior Vena Cava Dilated inferior vena cava with decreased inspiratory collapse. MEASUREMENTS (Male / Female) Normal Values 2D MEASUREMENTS AND LV FUNCTION IVS Diastolic Thickness 1 cm < 1.1 cm / < 1.0 cm LV Diastolic Diameter PLAX 5.4 cm 4.2 - 5.9 / 3.9 - 5.3 cm LV Diastolic Diameter Index 2.38 cm/m LVPW Diastolic Thickness 1 cm < 1.1 cm / < 1.0 cm LV Systolic Diameter PLAX 3.8 cm LV Systolic Diameter Index 1.67 cm/m LVOT Diameter 2.4 cm LVOT Cardiac Output 9.76 l/min LVOT Cardiac Index 4.05 l/min m LVOT Stroke Volume 84.1 ml Stroke Volume Index 34.9 ml/m LV Ejection Fraction MOD BP 60.4 % >= 55 % LA Volume MOD BP 68.7 ml LA Volume Index MOD BP 30.3 ml/m 16 - 34 ml/m RV Diastolic Basal Diameter 3.4 cm RV Diastolic Mid Diameter 2.6 cm LV Mass 207 g LV Mass Index 87.6 g/m Sinuses of Valsalva Diameter(d) 3.5 cm Ascending Aorta Diameter(s) 3 cm IVC Diameter Expiration 2.2 cm Ascending Aorta Index 1.32 cm/m M MODE TAPSE MM 1.37 cm DIASTOLOGY LV E' Septal Velocity 0.0957 m/sec AORTIC VALVE AV Peak Velocity 1.42 m/sec < 2.0 m/sec AV Peak Gradient 8.07 mmHg AV Mean Gradient 5 mmHg AV Velocity Time Integral 22.7 cm LVOT Peak Velocity 1.18 m/sec LVOT Velocity Time Integral 18.6 cm AV Area Cont Eq vti 3.71 cm AV Area Cont Eq pk 3.76 cm AV Dimensionless Index 0.819 TRICUSPID VALVE AND ESTIMATED PRESSURES Right Atrial Pressure 15 mmHg HCM DATA LVOT SOY (r) 5.57 mmHg Aortic Root ZScore: 0.42 Mendez Junior MD [facility] Accredited Site (Electronically Signed) Final Date: 07 March 2024 13:13 ICD-10 Codes: I30.9 Procedure Note Mendez Junior MD - 03/07/2024 [place] [address] Main: [email or web address] Transthoracic Echo Report LORRAINE BOONE Isabella ID: [id number] Age: 23 : 2000 Ordering Provider:HAROON SUNSHINE Exam Date: 03/07/2024 11:53 Gender: M Travel Manager: EDITH Height: 68 in BSA: 2.27 m BP: 132 / 80 Weight: 256 lbs BMI: 38.9 kg/m HR: 116 Location: Inpatient (Portable) Rhythm: Sinus Tachycardia Procedure Components: 2D imaging with contrast, Color Doppler, SpectralDoppler Indications: acute pericarditis, Acute pericarditis, unspecified Technical Quality: Fair Contrast: Definity Constrast Dose (ml): 0.30 [facility]#: [id number] Final Conclusion 1. Small circumferential pericardial effusion, with someechocardiographic signs of hemodynamic effect, i.e. tamponade indicators(RV diastolic collapse seen best in clip 3, subtle RA collapse, and excessiverespiratory variation in mitral and tricuspid inflow). 2. Calculated left ventricular ejection fraction (modified Simpsontechnique) is 60 %. 3. No regional wall motion abnormalities. 4. Normal right ventricular chamber size. Normal right ventricularsystolic function. Discussed with Dr. Betancourt. Estimated EF: 55-60% FINDINGS Left Ventricle Normal left ventricular chamber size. Normal leftventricular wall thickness. Normal left ventricular systolic function. Calculated left ventricular ejection fraction (modified Simpsontechnique) is 60 %. No regional wall motion abnormalities. Diastolic Function Indeterminate left ventricular diastolic function dueto fused mitral E and A waves. Right Ventricle Normal right ventricular chamber size. Normal rightventricular systolic function. Right ventricular systolic pressure cannot be estimated due to inability to detect peak tricuspidregurgitation Doppler velocity. Left Atrium Normal left atrial size. Left atrial volume index is 30ml/m . Right Atrium Normal right atrial size. Atrial Septum No evidence of inter-atrial shunt by color flow Doppler. Aortic Valve Trileaflet aortic valve. No aortic valve stenosis. No aorticvalve regurgitation. Mitral Valve Normal mitral valve. No mitral valve stenosis. Trivialmitral valve regurgitation. Tricuspid Valve Normal tricuspid valve. Trivial tricuspid valveregurgitation. Pulmonic Valve Normal pulmonary valve. No pulmonary valve stenosis. Nopulmonary valve regurgitation. Pericardium Small circumferential pericardial effusion, with someechocardiographic signs of hemodynamic effect (RV diastolic collapse seen best in clip 3, subtle RA collapse, and excessiverespiratory variation in mitral and tricuspid inflow). Aorta Normal aortic sinus of Valsalva dimension (3.5 cm). Normalascending aorta dimension (3.0 cm). Inferior Vena Cava Dilated inferior vena cava with decreased inspiratorycollapse. MEASUREMENTS (Male / Female) Normal Values 2D MEASUREMENTS AND LV FUNCTION IVS Diastolic Thickness 1 cm < 1.1 cm / < 1.0cm LV Diastolic Diameter PLAX 5.4 cm 4.2 - 5.9 / 3.9 -5.3 cm LV Diastolic Diameter Index 2.38 cm/m LVPW Diastolic Thickness 1 cm < 1.1 cm / < 1.0cm LV Systolic Diameter PLAX 3.8 cm LV Systolic Diameter Index 1.67 cm/m LVOT Diameter 2.4 cm LVOT Cardiac Output 9.76 l/min LVOT Cardiac Index 4.05 l/min m LVOT Stroke Volume 84.1 ml Stroke Volume Index 34.9 ml/m LV Ejection Fraction MOD BP 60.4 % >= 55 % LA Volume MOD BP 68.7 ml LA Volume Index MOD BP 30.3 ml/m 16 - 34 ml/m RV Diastolic Basal Diameter 3.4 cm RV Diastolic Mid Diameter 2.6 cm LV Mass 207 g LV Mass Index 87.6 g/m Sinuses of Valsalva Diameter(d) 3.5 cm Ascending Aorta Diameter(s) 3 cm IVC Diameter Expiration 2.2 cm Ascending Aorta Index 1.32 cm/m M MODE TAPSE MM 1.37 cm DIASTOLOGY LV E' Septal Velocity 0.0957 m/sec AORTIC VALVE AV Peak Velocity 1.42 m/sec < 2.0 m/sec AV Peak Gradient 8.07 mmHg AV Mean Gradient 5 mmHg AV Velocity Time Integral 22.7 cm LVOT Peak Velocity 1.18 m/sec LVOT Velocity Time Integral 18.6 cm AV Area Cont Eq vti 3.71 cm AV Area Cont Eq pk 3.76 cm AV Dimensionless Index 0.819 TRICUSPID VALVE AND ESTIMATED PRESSURES Right Atrial Pressure 15 mmHg HCM DATA LVOT SOY (r) 5.57 mmHg Aortic Root ZScore: 0.42 Mendez Junior MD [facility] Accredited Site (Electronically Signed) Final Date: 07 March 2024 13:13 ICD-10 Codes: I30.9 us Haroon Sunshine MD ECHO ORD Final Resu lt * SCAN-CARDIAC STRIP (03/07/2024 7:51 AM INTAKE MANAGER) us Scanner OTHER Final Result * SCAN-CARDIAC STRIP (03/07/2024 7:51 AM INTAKE MANAGER) us Scanner OTHER Final Result * SCAN-CARDIAC STRIP (03/07/2024 7:51 AM INTAKE MANAGER) us Scanner OTHER Final Result * (ABNORMAL) TROPONIN T (HS) ONE TIME (03/07/2024 5:53 AM INTAKE MANAGER) Only the most recent of2 resultswithin the time period is included. TROPONIN T HS 50(H) 6-15 ng/L ng/L 03/07/2024 7:18 AM INTAKE MANAGER [facility] Blood BLOOD SPECIMEN / Unknown Venipuncture / Unknown 03/07/2024 5:53 AM INTAKE MANAGER 03/07/2024 6:09 AM INTAKE MANAGER Narrative [facility] - 03/07/2024 7:18 AM INTAKE MANAGER hs-cTnT (Elecsys Troponin T Gen 5) concentration (s) above the sex-specific 99th percentile (16 ng/L or greater for males or 11 ng/L or greater for females) are indicative of myocardial injury. If initial hs-cTnT <=100 ng/L at presentation, a 0h/2h ABSOLUTE (ng/L) delta change (rising or falling) of >=10 ng/L suggests a significant change, whereas a 0h/2h delta change <=3 ng/L suggests no significant change. If initial hs-cTnT >100 ng/L at presentation, a 0h/2h/ RELATIVE (percent, %) delta change of 20% is suggested to distinguish patients with acute vs. chronic myocardial injury. There are multiple etiologies that can cause hs-cTnT increases above the 99th percentile (myocardial injury) other than acute myocardial infarction. Clinical context and careful clinical evaluation are critical for diagnosis and risk-stratification. The diagnosis of acute myocardial infarction requires a rising and/or falling pattern in hs-cTnT concentrations with at least one value above the sex-specific 99th percentile PLUS at least one of the following clinical criteria: ischemic symptoms, new or presumed new significant ST-T wave changes or new LBBB, development of pathological Q waves, imaging evidence of new loss of viable myocardium or new regional wall motion abnormality, or identification of intracoronary atherothrombosis or an acute angiographic culprit on coronary angiography. In appropriate low-risk patients with a non-ischemic electrocardiogram without active chest pain with a symptom onset >3-hours without recurrence, a single initial hs-cTnT<6 ng/L identifies patient with a very low risk in emergency department patient population. Matilde Elizondo MD CHEMISTRY Final Re sult [facility] SENDOUT INTERNAL ZIP [phone] [place] [address] * HBSAG (HBS) (03/07/2024 5:53 AM INTAKE MANAGER) HBSAG Nonreactive Nonreactive 03/07/2024 2:52 PM INTAKE MANAGER [facility] Blood BLOOD SPECIMEN / Unknown Venipuncture / Unknown 03/07/2024 5:53 AM INTAKE MANAGER 03/07/2024 6:09 AM INTAKE MANAGER Mau CHAMORRO SEND OUTS Final Res ult [facility] [address] [place] [address], [place] * ANTI HIV 1/2 (03/07/2024 5:53 AM INTAKE MANAGER) HIV-1/HIV-2 SCREEN Non-Reacti ve Non-Reacti ve 03/07/2024 2:52 PM INTAKE MANAGER [facility] Comment:HIV-1 p24 and HIV-1/ HIV-2 Ab Not Detected. Blood BLOOD SPECIMEN / Unknown Venipuncture / Unknown 03/07/2024 5:53 AM INTAKE MANAGER 03/07/2024 6:09 AM INTAKE MANAGER Mau CHAMORRO SEND OUTS Final Res ult [facility] [address] [place], [place] [id number], [place] * URIC ACID (03/07/2024 5:53 AM INTAKE MANAGER) URIC ACID 4.5 3.4 - 7.0 mg/dL 03/07/2024 11:47 AM INTAKE MANAGER [facility] Blood BLOOD SPECIMEN / Unknown Venipuncture / Unknown 03/07/2024 5:53 AM INTAKE MANAGER 03/07/2024 6:09 AM INTAKE MANAGER Mau CHAMORRO CHEMISTRY Final Res ult [facility] SENDOUT INTERNAL ZIP [id number] [place] [address] * PHOSPHORUS (03/07/2024 5:53 AM INTAKE MANAGER) PHOSPHORUS 3.2 2.5 - 4.5 mg/dL 03/07/2024 11:47 AM INTAKE MANAGER [facility] Blood BLOOD SPECIMEN / Unknown Venipuncture / Unknown 03/07/2024 5:53 AM INTAKE MANAGER 03/07/2024 6:09 AM INTAKE MANAGER us Mau CHAMORRO CHEMISTRY Final Res ult [facility] SENDOUT INTERNAL ZIP [id number] [place] [address] * SCAN-CARDIAC STRIP (03/07/2024 12:11 AM INTAKE MANAGER) us Scanner OTHER Final Result * SCAN-CARDIAC STRIP (03/07/2024 12:11 AM INTAKE MANAGER) us Scanner OTHER Final Result * SCAN-CARDIAC STRIP (03/07/2024 12:11 AM INTAKE MANAGER) us Scanner OTHER Final Result * BLOOD CULTURE (03/06/2024 9:34 PM INTAKE MANAGER) Only the most recent of2 resultswithin the time period is included. CULTURE No Growth. 03/12/2024 1:50 AM INTAKE MANAGER [facility] Blood BLOOD SPECIMEN / Unknown Venipuncture / Unknown 03/06/2024 9:34 PM INTAKE MANAGER 03/06/2024 9:48 PM INTAKE MANAGER Narrative [facility] - 03/12/2024 1:50 AM INTAKE MANAGER Low volume blood culture received; possible false negative culture. us Haroon Sunshine MD MICROBIOLOGY Final Resu lt [facility] [address] [place] [address], [place] * PROCALCITONIN (03/06/2024 9:33 PM INTAKE MANAGER) PROCALCITONIN 0.08 ng/ml 03/06/2024 10:21 PM INTAKE MANAGER [facility] Blood BLOOD SPECIMEN / Unknown Butterfly / Unknown 03/06/2024 9:33 PM INTAKE MANAGER 03/06/2024 9:48 PM INTAKE MANAGER Narrative [facility] - 03/06/2024 10:21 PM INTAKE MANAGER Procalcitonin for initial assessment of Lower Respiratory Tract Infection: Results Interpretation <0.10 ng/mL Antibiotic therapy strongly discoraged. Indicates absent of bacterial infection. * 0.10 - 0.25 ng/mL Antibiotic therapy discouraged. Bacterial infection unlikely. * 0.26 - 0.50 ng/mL Antibiotic therapy encouraged. Bacterial infection possible. >0.50 ng/mL Antibiotic therapy strongly encouraged. Suggestive of presence of bacterial infection. *Antibiotic therapy should be considered regardless of PCT result if the patient is clinically unstable, is at high risk for adverse outcome, has strong evidence of bacterial pathogen, or the clinical context indicates antibiotic therapy is warranted. If antibiotics are withheld, reassess if symptoms persist/worsen and/or repeat PCT measurement within 6-24 hours. In order to assess treatment success and to support a decision to discontinue antibiotic therapy, follow up samples should be tested once every 1-2 days, based upon physician discretion taking into account patient's evolution and progress. Procalcitonin for initial assessment of severe sepsis risk: Results Interpretation <0.5 ng/ml A PCT level below 0.5 ng/ml on the first day of ICU admission is associated with a low risk for progression to severe sepsis and/or septic shock. > 2.0 ng/mL A PCT level above 2.0 ng/mL on the first day of ICU admission is associated with a high risk for progression to severe sepsis and/or septic shock. Note: Concentrations < 0.5 ng/mL do not exclude an infection, on account of localized infections (without systemic signs) which can be associated with such low concentrations, or a systemic infection in its initial stages(< 6 hours). Furthermore, increased procalcitonin can occur without infection. PCT concentrations between 0.5 and 2.0 ng/mL should be interpreted taking into account the patient's history. It is recommended to retest PCT within 6-24 hours if any concentrations < 2 ng/mL are obtained. us Haroon Sunshine MD SEND OUTS Final Resu lt [facility] SENDOUT INTERNAL ZIP [id number] [address] [place] [address] * EKG 12 LEAD (03/06/2024 9:08 PM INTAKE MANAGER) Interpretation Sinus tachycardia Diffuse ST elevations with WV segment depressions, consider acute pericarditis Abnormal ECG No previous ECGs available BEYOND NOW Ventricular Rate 110 BPM BEYOND NOW Atrial Rate 110 BPM BEYOND NOW P-R Interval 152 ms BEYOND NOW QRS Duration 82 ms BEYOND NOW QT 284 ms BEYOND NOW QTc 384 ms BEYOND NOW P [place] 35 degrees BEYOND NOW R [place] 45 degrees BEYOND NOW T [place] -8 degrees BEYOND NOW 03/06/2024 9:08 PM INTAKE MANAGER 03/06/2024 9:52 PM INTAKE MANAGER us Matilde Elizondo MD EKG ORD Final Re sult Performing Organization Address [facility]/ZIP Co de Phone Number BEYOND NOW [place], [place] * SCAN-CARDIAC STRIP (03/06/2024 8:27 PM INTAKE MANAGER) us Scanner OTHER Final Result * SCAN-CARDIAC STRIP (03/06/2024 8:27 PM INTAKE MANAGER) us Scanner OTHER Final Result * SCAN-CARDIAC STRIP (03/06/2024 8:27 PM INTAKE MANAGER) us Scanner OTHER Final Result * ANTINUCLEAR ANTIBODY BY IFA (03/06/2024 8:17 PM INTAKE MANAGER) Pathologist [facility] ANTINUCLEAR ANTIBODY (SALAZAR) Negative Negative 03/08/2024 12:50 PM INTAKE MANAGER [facility] Blood BLOOD SPECIMEN / Unknown Venipuncture / Unknown 03/06/2024 8:17 PM INTAKE MANAGER 03/06/2024 8:28 PM INTAKE MANAGER Narrative [facility] - 03/08/2024 12:50 PM INTAKE MANAGER Method: SALAZAR screen performed by (IFA) on HEP-2 substrate, IgG us Haroon Sunshine MD CHEMISTRY Final Resu lt Performing Organization Address City/[facility]/ZIP Co de Phone Number [facility] [address] [place] [address], [place] * ANTI HBC (03/06/2024 8:17 PM INTAKE MANAGER) ANTI HBC Non-React keon Non-React keon 03/07/2024 12:08 PM INTAKE MANAGER [facility] Comment:Anti-HBc Antibodies not detected. Does not exclude the possibility of exposure to or infection with HBV. Levels of Anti-HBc may be below the cut-off in early infection. Blood BLOOD SPECIMEN / Unknown Venipuncture / Unknown 03/06/2024 8:17 PM INTAKE MANAGER 03/06/2024 8:28 PM INTAKE MANAGER us Mau CHAMORRO SEND OUTS Final Res ult [facility] [address] [place] [address], * (ABNORMAL) COMP METABOLIC PANEL (03/06/2024 8:17 PM INTAKE MANAGER) SODIUM 134(L) 136 - 145 mmol/L 03/06/2024 8:50 PM [facility] POTASSIUM 4.0 3.5 - 5.1 mmol/L 03/06/2024 8:50 PM [facility] CHLORIDE 100 98 - 107 mmol/L 03/06/2024 8:50 PM [facility] CO2,TOTAL 21(L) 22 - 29 mmol/L 03/06/2024 8:50 PM [facility] ANION GAP 13 5 - 18 03/06/2024 8:50 PM [facility] GLUCOSE 117(H) 70 - 99 mg/dL 03/06/2024 8:50 PM [facility] CALCIUM 9.2 8.8 - 10.4 mg/dL 03/06/2024 8:50 PM [facility] Comment: Reference ranges for this test were updated on 01/23/2024 to reflect our healthy population more accurately. Reference range changes are not retroactively applied to results, but previous results using the same methodology can be interpreted in the context of the new reference range. BUN 9 6 - 20 mg/dL 03/06/2024 8:50 PM [facility] CREATININE 0.71 0.70 - 1.20 mg/dL 03/06/2024 8:50 PM [facility] BUN/CREAT RATIO 13 10 - 20 4 8:50 PM [facility] eGFR >90 >90 mL/min/1. 73m2 03/06/2024 8:50 PM [facility] Comment:As of 2021, eG FR is calculated by the CKD-EPI creatinine equation without race adjustment. eGFR can be influenced by muscle mass, exercise, and diet. The reported eGFR is an estimation only and is only applicable if the renal function is stable. ALBUMIN 4.1 4.0 - 4.9 g/dL 03/06/2024 8:50 PM [facility] PROTEIN,TOTAL 8.2(H) 6.0 - 8.0 g/dL 03/06/2024 8:50 PM [facility] BILIRUBIN,TOTAL 0.5 0.0 - 1.2 mg/dL 03/06/2024 8:50 PM [facility] ALK PHOSPHATASE 54 40 - 129 IU/L 03/06/2024 8:50 PM [facility] ALT (SGPT) 23 10 - 50 IU/L 03/06/2024 8:50 PM [facility] AST (SGOT) 20 10 - 50 IU/L 03/06/2024 8:50 PM [facility] Blood BLOOD SPECIMEN / Unknown Venipuncture / Unknown 03/06/2024 8:17 PM INTAKE MANAGER 03/06/2024 8:28 PM INTAKE MANAGER us Haroon Sunhsine MD CHEMISTRY Final Resu lt [facility] SENDOUT INTERNAL ZIP [id number] [place] [address] from Last 3 Months Insurance [employer] GENERIC Advance Directives * Full Code (Latest Code Status on File) Date Activated Date Inactivated Comments 03/06/2024 7:57 PM 03/10/2024 4:02 PM Question Answer Comments Code Status Discussion: Reviewed Preferences Care Teams Protection Manager Relationship Specialty Start Date End Date Pcp, No . PCP - General 03/28/24
--- NOTE | 2024-03-28 19:32 | CRLHL7_ITS ---
For Patients: As a result of the Century Cures Act, medical imaging exams and procedure reports are released immediately into your electronic medical record. You may view this report before your referring provider. If you have questions, please contact your health care provider. INDICATION: Shortness of breath TECHNIQUE: Chest radiograph 2 views COMPARISON: None FINDINGS: The sensitivity and specificity of the exam are moderately limited by the patient`s body habitus. Mediastinum: The mediastinum is normal in appearance. Mild cardiomegaly is noted. Lung: Small lung volumes are noted with mild bibasilar atelectasis. Small bilateral pleural effusions are suspected. No pneumothorax is identified. Bone and Soft tissue: Unremarkable for age. IMPRESSIONS: 1. Small lung volumes are noted with mild bibasilar atelectasis. 2. Small bilateral pleural effusions are suspected. 3. Mild cardiomegaly is noted. Dictated by Sukhdeep Short MD @ 03/28/2024 7:53:33 PM Dictated by: Sukhdeep Short MD @ 03/28/2024 19:53:38 (Electronically Signed)
--- NOTE | 2024-03-28 19:42 | ED.GENADULT ---
HPI - General Adult General Chief complaint: Chest Pain <Tricia Umanzor MD - Last Filed: 03/28/24 22:05> Stated complaint: Chest pain, elevated heartrate <Tricia Umanzor MD - Last Filed: 03/28/24 22:05> Time Seen by Provider: 03/28/24 19:30 <Tricia Umanzor MD - Last Filed: 03/28/24 22:05> Source: patient <Tricia Umanzor MD - Last Filed: 03/28/24 22:05> Mode of arrival: ambulatory <Tricia Umanzor MD - Last Filed: 03/28/24 22:05> Limitations: no limitations <Tricia Umanzor MD - Last Filed: 03/28/24 22:05> History of Present Illness HPI narrative: Patient is a 23-year-old male presenting today with chest pain. Patient has been having recurrent chest pain since this summer. He was recently diagnosed with pericarditis. He is on colchicine and indomethacin. He has been on these things since right before . He states that in the last 4 days he feels his symptoms have gotten worse. He complains of increasing central chest pressure. He feels fatigued. He states that yesterday he had a temperature of 100?. Yesterday he also had an echocardiogram done which showed a small pericardial effusion. Per the note from Dr. Mackey for it states that the overall appearance of the echocardiogram was improved and the pericardial effusion was smaller than it had previously been. Patient was seen in our ER towards the end of February where he had a CT scan done showing a pericardial effusion and potentially a mediastinal mass. [facility] was [facility] to [facility] for further management and a CT scan at their facility showed a moderate-sized pericardial effusion but no evidence of a solid mediastinal mass. He was discharged home on colchicine 0.6 mg p.o. b.i.d. and indomethacin 50 mg p.o. t.i.d., followed by a taper. He states that he has been taking his medications as prescribed. He states that he feels nauseated and slightly short of breath. He denies vomiting. Denies diarrhea. Denies changes in his appetite. Pain is better when he leans forward. <Tricia Umanzor MD - Last Filed: 03/28/24 22:05> Related Data Home medications: Home Medications ?Medication ?Instructions ?Recorded ?Confirmed colchicine 0.6 mg capsule 0.6 mg PO BID 03/29/24 03/29/24 indomethacin 50 mg capsule 50 mg PO TID 03/29/24 03/29/24 omeprazole 20 mg capsule,delayed 20 mg PO BID 03/29/24 03/29/24 release Previous Rx's ?Medication ?Instructions ?Recorded ibuprofen 800 mg tablet (IBU) 800 mg PO Q8H #90 tabs 03/29/24 pantoprazole 40 mg tablet,delayed 40 mg PO BID #60 tabs 03/29/24 release (Protonix) <Tricia Umanzor MD - Last Filed: 03/28/24 22:05> Allergies/adverse reactions: Allergies Allergy/AdvReac Type Severity Reaction Status Date / Time No Known Drug Allergies Allergy Verified 03/28/24 19:24 <Tricia Umaznor MD - Last Filed: 03/28/24 22:05> Review of Systems Status of ROS: Reports: 10 or more systems reviewed and unremarkable except as noted in History and below <Tricia Umanzor MD - Last Filed: 03/28/24 22:05> [facility] Social History: Social History Smoking Status: Current some day smoker What tobacco products do you use: cigarettes How often do you have a drink containing alcohol: monthly or less AUDIT-C Alcohol total score: 1 Non-prescribed substance use: denies use <Tricia Umanzor MD - Last Filed: 03/28/24 22:05> Exam Narrative: Exam Narrative: Overweight, well-developed patient in no acute distress. Alert and oriented. Answers questions appropriately. Mood and affect are appropriate. Thoughts are goal oriented and rational. No tangential or magical thinking noted. Patient speaks in full sentences without needing to catch his breath. HEENT: Normocephalic atraumatic. Pupils are equally round reactive to light. Extraocular muscles are intact. Conjunctivae are moist without any icterus noted. Moist mucous membranes. Posterior pharynx is normal. Neck is soft without any lymphadenopathy or thyromegaly. No masses are appreciated. Cardiovascular: Heart is regular rate and rhythm S1 and S2 are present without any murmurs. Lungs: Clear to auscultation bilaterally no wheezes rhonchi or rales are appreciated. Patient takes deep breaths without any discomfort. Abdomen: Soft and nontender nondistended with normal bowel sounds. No guarding or rebound. No masses or organomegaly appreciated. Extremities: Bilateral lower extremities are without edema. Skin: Well perfused without any obvious rashes. <Tricia Umanzor MD - Last Filed: 03/28/24 22:05> Const: Vital Signs, click to edit/add: Vital Signs - 24 hr 03/28/24 19:21 03/28/24 19:32 03/28/24 19:40 Temperature 98.4 F Pulse Rate 136 H Pulse Rate [Right Pulse Oximeter] 135 H Respiratory Rate 20 Blood Pressure Blood Pressure [Ri ght Upper Arm] 132/73 Pulse Oximetry 99 99 95 Oxygen Delivery Me od Room Air 03/28/24 19:42 03/28/24 19:53 03/28/24 20:00 Temperature Pulse Rate 138 H 141 H Pulse Rate [Right Pulse Oximeter] Respiratory Rate Blood Pressure 107/77 Blood Pressure [Ri ght Upper Arm] Pulse Oximetry 94 96 97 Oxygen Delivery Me thod 03/28/24 20:02 03/28/24 20:15 03/28/24 20:33 Temperature Pulse Rate 136 H 280 H 135 H Pulse Rate [Right Pulse Oximeter] Respiratory Rate Blood Pressure 102/72 Blood Pressure [Ri ght Upper Arm] Pulse Oximetry 97 97 98 Oxygen Delivery Me thod 03/28/24 20:34 03/28/24 20:36 03/28/24 20:45 Temperature Pulse Rate 135 H 146 H 141 H Pulse Rate [Right Pulse Oximeter] Respiratory Rate Blood Pressure Blood Pressure [Ri ght Upper Arm] Pulse Oximetry 98 93 Oxygen Delivery Me thod 03/28/24 21:02 03/28/24 21:05 03/28/24 21:16 Temperature Pulse Rate 147 H 146 H Pulse Rate [Right Pulse Oximeter] Respiratory Rate Blood Pressure 113/87 Blood Pressure [Ri ght Upper Arm] Pulse Oximetry 96 97 Oxygen Delivery Me thod 03/28/24 21:30 03/28/24 21:32 03/28/24 21:33 Temperature Pulse Rate 144 H 146 H 143 H Pulse Rate [Right Pulse Oximeter] Respiratory Rate Blood Pressure 117/78 Blood Pressure [Ri ght Upper Arm] Pulse Oximetry 96 96 96 Oxygen Delivery Me thod 03/28/24 21:45 03/28/24 22:00 03/28/24 22:02 Temperature Pulse Rate 143 H 142 H 138 H Pulse Rate [Right Pulse Oximeter] Respiratory Rate Blood Pressure 122/83 Blood Pressure [Ri ght Upper Arm] Pulse Oximetry 97 96 95 Oxygen Delivery Me thod 03/28/24 23:00 03/28/24 23:19 03/28/24 23:32 Temperature 98.4 F Pulse Rate 121 H 119 H Pulse Rate [Right Pulse Oximeter] Respiratory Rate 20 20 Blood Pressure 107/61 115/83 Blood Pressure [Ri ght Upper Arm] Pulse Oximetry 96 93 Oxygen Delivery Me thod 03/29/24 00:02 03/29/24 00:31 03/29/24 01:02 Temperature Pulse Rate 116 H 116 H 111 H Pulse Rate [Right Pulse Oximeter] Respiratory Rate 20 20 20 Blood Pressure 106/74 107/79 113/81 Blood Pressure [Ri ght Upper Arm] Pulse Oximetry 92 91 97 Oxygen Delivery Me thod 03/29/24 01:57 03/29/24 02:02 03/29/24 03:02 Temperature Pulse Rate 116 H 116 H 114 H Pulse Rate [Right Pulse Oximeter] Respiratory Rate 20 20 20 Blood Pressure 129/88 125/91 H 111/82 Blood Pressure [Ri ght Upper Arm] Pulse Oximetry 94 93 92 Oxygen Delivery Me thod 03/29/24 04:02 03/29/24 05:02 03/29/24 06:09 Temperature Pulse Rate 118 H 120 H 118 H Pulse Rate [Right Pulse Oximeter] Respiratory Rate 20 20 20 Blood Pressure 117/85 107/71 114/81 Blood Pressure [Ri ght Upper Arm] Pulse Oximetry 94 92 92 Oxygen Delivery Me thod <Tricia Umanzor MD - Last Filed: 03/28/24 22:05> Vital Signs, click to edit/add: Vital Signs - 24 hr 03/28/24 19:21 03/28/24 19:32 03/28/24 19:40 Temperature 98.4 F Pulse Rate 136 H Pulse Rate [Right Pulse Oximeter] 135 H Respiratory Rate 20 Blood Pressure Blood Pressure [Ri ght Upper Arm] 132/73 Pulse Oximetry 99 99 95 Oxygen Delivery Me thod Room Air 03/28/24 19:42 03/28/24 19:53 03/28/24 20:00 Temperature Pulse Rate 138 H 141 H Pulse Rate [Right Pulse Oximeter] Respiratory Rate Blood Pressure 107/77 Blood Pressure [Ri ght Upper Arm] Pulse Oximetry 94 96 97 Oxygen Delivery Me thod 03/28/24 20:02 03/28/24 20:15 03/28/24 20:33 Temperature Pulse Rate 136 H 280 H 135 H Pulse Rate [Right Pulse Oximeter] Respiratory Rate Blood Pressure 102/72 Blood Pressure [Ri ght Upper Arm] Pulse Oximetry 97 97 98 Oxygen Delivery Me thod 03/28/24 20:34 03/28/24 20:36 03/28/24 20:45 Temperature Pulse Rate 135 H 146 H 141 H Pulse Rate [Right Pulse Oximeter] Respiratory Rate Blood Pressure Blood Pressure [Ri ght Upper Arm] Pulse Oximetry 98 93 Oxygen Delivery Me thod 03/28/24 21:02 03/28/24 21:05 03/28/24 21:16 Temperature Pulse Rate 147 H 146 H Pulse Rate [Right Pulse Oximeter] Respiratory Rate Blood Pressure 113/87 Blood Pressure [Ri ght Upper Arm] Pulse Oximetry 96 97 Oxygen Delivery Me thod 03/28/24 21:30 03/28/24 21:32 03/28/24 21:33 Temperature Pulse Rate 144 H 146 H 143 H Pulse Rate [Right Pulse Oximeter] Respiratory Rate Blood Pressure 117/78 Blood Pressure [Ri ght Upper Arm] Pulse Oximetry 96 96 96 Oxygen Delivery Me thod 03/28/24 21:45 03/28/24 22:00 03/28/24 22:02 Temperature Pulse Rate 143 H 142 H 138 H Pulse Rate [Right Pulse Oximeter] Respiratory Rate Blood Pressure 122/83 Blood Pressure [Ri ght Upper Arm] Pulse Oximetry 97 96 95 Oxygen Delivery Me thod 03/28/24 23:00 03/28/24 23:19 03/28/24 23:32 Temperature 98.4 F Pulse Rate 121 H 119 H Pulse Rate [Right Pulse Oximeter] Respiratory Rate 20 20 Blood Pressure 107/61 115/83 Blood Pressure [Ri ght Upper Arm] Pulse Oximetry 96 93 Oxygen Delivery Me thod 03/29/24 00:02 03/29/24 00:31 03/29/24 01:02 Temperature Pulse Rate 116 H 116 H 111 H Pulse Rate [Right Pulse Oximeter] Respiratory Rate 20 20 20 Blood Pressure 106/74 107/79 113/81 Blood Pressure [Ri ght Upper Arm] Pulse Oximetry 92 91 97 Oxygen Delivery Me thod 03/29/24 01:57 03/29/24 02:02 03/29/24 03:02 Temperature Pulse Rate 116 H 116 H 114 H Pulse Rate [Right Pulse Oximeter] Respiratory Rate 20 20 20 Blood Pressure 129/88 125/91 H 111/82 Blood Pressure [Ri ght Upper Arm] Pulse Oximetry 94 93 92 Oxygen Delivery Pr thod 03/29/24 04:02 03/29/24 05:02 03/29/24 06:09 Temperature Pulse Rate 118 H 120 H 118 H Pulse Rate [Right Pulse Oximeter] Respiratory Rate 20 20 20 Blood Pressure 117/85 107/71 114/81 Blood Pressure [Ri ght Upper Arm] Pulse Oximetry 94 92 92 Oxygen Delivery Pr thod <Owen Neal MD - Last Filed: 03/29/24 06:34> Course Course ED Course: EKG, read by me, shows diffuse ST changes consistent with pericarditis. These are not significantly different than a previous EKG we have on file. Pulse is 135. Looking through patient's records CRP on March 19 was 7.2, ESR was around 9. Today his CRP is 32.8 CBC shows an elevated white cell count at 19.55. 03/31/2017 was 12.89. Normal lactate. Normal chemistries. Normal troponin. Pulse ranges from 135 to 145. 1 L of normal saline did not change this. Dr. Parker, cardiology from [facility], was consulted. He recommends admitting the patient for pain control with IV Toradol. He also recommends D seeing the indomethacin and starting ibuprofen 800 mg p.o. t.i.d. for the next 4 weeks. Continue colchicine as is. After reviewing today's presentation in the patient's medical history he believes that the patient has recurrent pericarditis and that explains his elevated inflammatory markers and white cell count. Lastly, he recommends omeprazole 40 mg p.o. daily. Unfortunately, we did not have any hospital beds available and there were no hospital beds available in any of the [facility] systems that we tried calling. Because of this patient will remain in the ER overnight. He has Toradol Q 6 ordered, ibuprofen 800 p.o. t.i.d. and omeprazole 20 b.i.d. ordered. Continue colchicine. Labs will be repeated in the morning. Care transferred to oncoming physician. <Tricia Umanzor MD - Last Filed: 03/28/24 22:05> Reevaluation(s) Time of Reevaluation #1: 00:16 <Owen Neal MD - Last Filed: 03/29/24 06:34> Reevaluation #1: Recently diagnosed with pericarditis, has been on indomethacin, comes in with chest pain and tachycardia. Initial heart rate 130s with diffuse ST changes consistent with pericarditis. CRP today 32.8 up from prior of March 19 27.2. Echocardiogram March 27 with improving small pericardial effusion. Care was discussed with Cardiology who recommended admission, IV Toradol for pain management, ibuprofen 800 mg t.i.d. for 4 weeks and omeprazole b.i.d. as well as continuing colchicine. No beds available for admission, patient will be monitored in the emergency department overnight for pain control and re-evaluation in the morning. <Owen Neal MD - Last Filed: 03/29/24 06:34> Time of Reevaluation #2: 06:25 <Owen Neal MD - Last Filed: 03/29/24 06:34> Reevaluation #2: Patient recheck, pain is controlled with oxycodone but remains tachycardic around 120, blood pressure is normal. Patient is motivated to go home if he has pain medication does look concerned about his ongoing tachycardia. I will reach out to [facility] regarding ongoing tachycardia, otherwise previous recommendations for stopping indomethacin and starting high-dose ibuprofen <Owen Neal MD - Last Filed: 03/29/24 06:34> Time of Reevaluation #3: 06:32 <Owen Neal MD - Last Filed: 03/29/24 06:34> Reevaluation #3: Care discussed with Dr. Parker, cardiology who feels that patient is still stable to go home with continued tachycardia, recommends outpatient echocardiogram in 1 week and follow-up with cardiology as scheduled. <Owen Nael MD - Last Filed: 03/29/24 06:34> Vital Signs Vital signs: Initial Vital Signs Respiratory Effort Normal, Spontaneous, Non-Labored 03/28/24 19:20 Respiratory Depth Normal 03/28/24 19:20 Respiratory Pattern Normal 03/28/24 19:20 Vital Signs Temperature 98.4 F 03/28/24 19:21 Pulse Rate 135 H 03/28/24 19:21 Respiratory Rate 20 03/28/24 19:21 Blood Pressure 132/73 03/28/24 19:21 Pulse Oximetry 99 03/28/24 19:21 Oxygen Delivery Method Room Air 03/28/24 19:21 Temperature 98.4 F 03/28/24 23:00 Pulse Rate 118 H 03/29/24 06:09 Respiratory Rate 20 03/29/24 06:09 Blood Pressure 114/81 03/29/24 06:09 Pulse Oximetry 92 03/29/24 06:09 Oxygen Delivery Method Room Air 03/28/24 19:21 <Tricia Umanzor MD - Last Filed: 03/28/24 22:05> Initial Vital Signs Respiratory Effort Normal, Spontaneous, Non-Labored 03/28/24 19:20 Respiratory Depth Normal 03/28/24 19:20 Respiratory Pattern Normal 03/28/24 19:20 Vital Signs Temperature 98.4 F 03/28/24 19:21 Pulse Rate 135 H 03/28/24 19:21 Respiratory Rate 20 03/28/24 19:21 Blood Pressure 132/73 03/28/24 19:21 Pulse Oximetry 99 03/28/24 19:21 Oxygen Delivery Method Room Air 03/28/24 19:21 Temperature 98.4 F 03/28/24 23:00 Pulse Rate 118 H 03/29/24 06:09 Respiratory Rate 20 03/29/24 06:09 Blood Pressure 114/81 03/29/24 06:09 Pulse Oximetry 92 03/29/24 06:09 Oxygen Delivery Method Room Air 03/28/24 19:21 <Owen Neal MD - Last Filed: 03/29/24 06:34> Medications Administered Medications: Discontinued Medications Generic Name Dose Route Start Last Admin Trade Name Freq PRN Reason Stop Dose Admin Hydroxyzine Pamoate 25 mg 03/28/24 23:31 03/28/24 23:39 Hydroxyzine Pamoate 25 Mg Capsule PO 03/28/24 23:32 25 mg ONCE ONE Administration Sodium Chloride 1,000 mls @ 1,000 mls/hr 03/28/24 20:00 03/28/24 20:36 0.9 % Sodium Chloride 1000 Ml IV 03/28/24 20:59 Infused .Q1H MILLICENT Infusion Ketorolac Tromethamine 30 mg 03/28/24 21:43 03/28/24 21:58 Ketorolac 30 Mg/Ml Inj IVP 03/28/24 21:44 30 mg ONCE ONE Administration Morphine Sulfate 2 mg 03/28/24 21:05 03/28/24 21:19 Morphine 2 Mg/Ml Inj IVP 03/28/24 21:06 Not Given ONCE ONE Omeprazole 20 mg 03/28/24 21:44 03/28/24 21:58 Omeprazole [address] PO 03/28/24 21:45 20 mg ONCE ONE Administration Oxycodone HCl 5 mg 03/28/24 21:18 03/28/24 21:23 Oxycodone 5 Mg Tablet PO 03/28/24 21:19 5 mg ONCE ONE Administration Oxycodone HCl 5 mg 03/29/24 05:41 03/29/24 05:43 Oxycodone 5 Mg Tablet PO 03/29/24 05:42 5 mg ONCE ONE Administration <Tricia Umanzor MD - Last Filed: 03/28/24 22:05> Discontinued Medications Generic Name Dose Route Start Last Admin Trade Name Freq PRN Reason Stop Dose Admin Hydroxyzine Pamoate 25 mg 03/28/24 23:31 03/28/24 23:39 Hydroxyzine Pamoate 25 Mg Capsule PO 03/28/24 23:32 25 mg ONCE ONE Administration Sodium Chloride 1,000 mls @ 1,000 mls/hr 03/28/24 20:00 03/28/24 20:36 0.9 % Sodium Chloride 1000 Ml IV 03/28/24 20:59 Infused .Q1H MILLICENT Infusion Ketorolac Tromethamine 30 mg 03/28/24 21:43 03/28/24 21:58 Ketorolac 30 Mg/Ml Inj IVP 03/28/24 21:44 30 mg ONCE ONE Administration Morphine Sulfate 2 mg 03/28/24 21:05 03/28/24 21:19 Morphine 2 Mg/Ml Inj IVP 03/28/24 21:06 Not Given ONCE ONE Omeprazole 20 mg 03/28/24 21:44 03/28/24 21:58 Omeprazole [address] PO 03/28/24 21:45 20 mg ONCE ONE Administration Oxycodone HCl 5 mg 03/28/24 21:18 03/28/24 21:23 Oxycodone 5 Mg Tablet PO 03/28/24 21:19 5 mg ONCE ONE Administration Oxycodone HCl 5 mg 03/29/24 05:41 03/29/24 05:43 Oxycodone 5 Mg Tablet PO 03/29/24 05:42 5 mg ONCE ONE Administration <Owen Neal MD - Last Filed: 03/29/24 06:34> Medical Decision Making MDM Narrative Medical decision making narrative: 23-year-old male with recurrent pericarditis. Plan per above. <Tricia Umanzor MD - Last Filed: 03/28/24 22:05> Lab Data Lab results reviewed: Yes I reviewed the patient's lab results <Tricia Umanzor MD - Last Filed: 03/28/24 22:05> Labs: Lab Results 03/28/24 03/28/24 03/29/24 Range/Units 19:39 21:08 05:05 WBC 19.55 H 15.18 H (4.50-11.00) K/uL RBC 5.27 4.91 (4.30-5.90) m/uL Hgb 13.9 13.0 L (13.5-17.5) gm/dL Hct 40.9 38.4 (37.0-53.0) % MCV 78 L 78 L (80-100) fL MCH 26 27 (26-34) pg MCHC 34 34 (32-36) gm/dL RDW Coeff of [place] 13.4 13.7 (11.5-15.5) % Plt Count 268 229 (140-440) K/uL Neut % (Auto) 67.7 71.7 (42.0-72.0) % Lymph % (Auto) 16.1 L 15.2 L (20-44) % [place] % (Auto) 14.9 H 12.4 H (0.0-11.0) % Eos % (Auto) 0.3 0.2 (0.0-7.0) % Baso % (Auto) 0.2 0.2 (0.0-3.0) % Neut # (Auto) 13.20 H 10.90 H (1.7-7.0) K/uL Lymph # (Auto) 3.10 H 2.30 (0.90-2.90) K/uL [place] # (Auto) 2.90 H 1.90 H (0.00-0.90) K/UL Eos # (Auto) 0.10 0.00 (0.00-0.50) K/uL Baso # (Auto) 0.00 0.00 (0.00-0.30) K/uL Abs Immat Gran (auto) 0.20 0.00 (0.00-0.30) K/uL Imm/Tot Granulo (auto) 0.8 0.3 % ESR 44 H 51 H (2-15) mm/hr Sodium 136 136 (135-149) mmol/L Potassium 3.9 4.1 (3.6-5.1) mmol/L Chloride 103 101 (96-114) mmol/L Carbon Dioxide 25 26 (20-32) mmol/L Anion Gap 8 9 (7-15) mEq/L BUN 18 19 (5-24) mg/dL Creatinine 0.8 0.8 (0.5-1.5) mg/dL Estimated Creat Clear 141.31 141.31 Estimated GFR 129 129 ml/min Glucose 91 114 (60-115) mg/dL Lactate 0.9 (0.5-1.9) mmol/L Calcium 8.8 8.8 (8.4-10.6) mg/dL Troponin I 0.01 (0.01-0.04) ng/mL C-Reactive Protein 32.8 H > 27.0 H (0.5-1.0) mg/dL SARS-CoV-2 (PCR) Negative SARS-CoV-2 (Negative) Influenza Type A (PCR) Negative PCR FLU A (Negative) Influenza Type B (PCR) Negative PCR FLU B (Negative) RSV (PCR) Negative PCR RSV (Negative) POC Troponin I 0.01 (0.01-0.04) ng/ml <Tricia Umanzor MD - Last Filed: 03/28/24 22:05> Lab Results 03/28/24 03/28/24 03/29/24 Range/Units 19:39 21:08 05:05 WBC 19.55 H 15.18 H (4.50-11.00) K/uL RBC 5.27 4.91 (4.30-5.90) m/uL Hgb 13.9 13.0 L (13.5-17.5) gm/dL Hct 40.9 38.4 (37.0-53.0) % MCV 78 L 78 L (80-100) fL MCH 26 27 (26-34) pg MCHC 34 34 (32-36) gm/dL RDW Coeff of [place] 13.4 13.7 (11.5-15.5) % Plt Count 268 229 (140-440) K/uL Neut % (Auto) 67.7 71.7 (42.0-72.0) % Lymph % (Auto) 16.1 L 15.2 L (20-44) % [place] % (Auto) 14.9 H 12.4 H (0.0-11.0) % Eos % (Auto) 0.3 0.2 (0.0-7.0) % Baso % (Auto) 0.2 0.2 (0.0-3.0) % Neut # (Auto) 13.20 H 10.90 H (1.7-7.0) K/uL Lymph # (Auto) 3.10 H 2.30 (0.90-2.90) K/uL [place] # (Auto) 2.90 H 1.90 H (0.00-0.90) K/UL Eos # (Auto) 0.10 0.00 (0.00-0.50) K/uL Baso # (Auto) 0.00 0.00 (0.00-0.30) K/uL Abs Immat Gran (auto) 0.20 0.00 (0.00-0.30) K/uL Imm/Tot Granulo (auto) 0.8 0.3 % ESR 44 H 51 H (2-15) mm/hr Sodium 136 136 (135-149) mmol/L Potassium 3.9 4.1 (3.6-5.1) mmol/L Chloride 103 101 (96-114) mmol/L Carbon Dioxide 25 26 (20-32) mmol/L Anion Gap 8 9 (7-15) mEq/L BUN 18 19 (5-24) mg/dL Creatinine 0.8 0.8 (0.5-1.5) mg/dL Estimated Creat Clear 141.31 141.31 Estimated GFR 129 129 ml/min Glucose 91 114 (60-115) mg/dL Lactate 0.9 (0.5-1.9) mmol/L Calcium 8.8 8.8 (8.4-10.6) mg/dL Troponin I 0.01 (0.01-0.04) ng/mL C-Reactive Protein 32.8 H > 27.0 H (0.5-1.0) mg/dL SARS-CoV-2 (PCR) Negative SARS-CoV-2 (Negative) Influenza Type A (PCR) Negative PCR FLU A (Negative) Influenza Type B (PCR) Negative PCR FLU B (Negative) RSV (PCR) Negative PCR RSV (Negative) POC Troponin I 0.01 (0.01-0.04) ng/ml <Owen Neal MD - Last Filed: 03/29/24 06:34> Imaging Data Chest x-ray: Attestation: I have reviewed the pertinent imaging results. <Tricia Umanzor MD - Last Filed: 03/28/24 22:05> Radiologist's impression: TECHNIQUE: Chest radiograph 2 views COMPARISON: None FINDINGS: The sensitivity and specificity of the exam are moderately limited by the patient`s body habitus. Mediastinum: The mediastinum is normal in appearance. Mild cardiomegaly is noted. Lung: Small lung volumes are noted with mild bibasilar atelectasis. Small bilateral pleural effusions are suspected. No pneumothorax is identified. Bone and Soft tissue: Unremarkable for age. IMPRESSIONS: 1. Small lung volumes are noted with mild bibasilar atelectasis. 2. Small bilateral pleural effusions are suspected. 3. Mild cardiomegaly is noted. 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 <Tricia Umanzor MD - Last Filed: 03/28/24 22:05> Condition: Stable <Tricia Umanzor MD - Last Filed: 03/28/24 22:05> Instructions: Acute Pericarditis (ED) <Tricia Umanzor MD - Last Filed: 03/28/24 22:05> Additional Instructions: Stop indomethacin Continue colchicine Start ibuprofen 800 mg 3 times a day as well as Protonix 20 mg twice a day Follow-up with cardiology <Tricia Umanzor MD - Last Filed: 03/28/24 22:05> Activity Level: Activity as Tolerated <Tricia Umanzor MD - Last Filed: 03/28/24 22:05> Activity as Tolerated <Owen Neal MD - Last Filed: 03/29/24 06:34> Activity Detail: Activity as tolerated <Tricia Umanzor MD - Last Filed: 03/28/24 22:05> Activity as tolerated <Owen Neal MD - Last Filed: 03/29/24 06:34> Discharge Diet: Regular <Tricia Umanzor MD - Last Filed: 03/28/24 22:05> Regular <Owen Neal MD - Last Filed: 03/29/24 06:34> Prescriptions: New ibuprofen [IBU] 800 mg tablet 800 mg PO Q8H Qty: 90 2RF pantoprazole [Protonix] 40 mg tablet,delayed release (DR/EC) 40 mg PO BID Qty: 60 0RF No Action omeprazole 20 mg capsule,delayed release(DR/EC) 20 mg PO BID colchicine 0.6 mg capsule 0.6 mg PO BID indomethacin 50 mg capsule 50 mg PO TID Rx Instructions: administer with food or milk <Tricia Umanzor MD - Last Filed: 03/28/24 22:05> Follow Up/Referrals: Provider,Not a Local [Non-Staff] - <Tricia Umanzor MD - Last Filed: 03/28/24 22:05>
[2024-03-28 19:48] LABS: Lactate* 0.9 mmol/L (0.5-1.9)
[2024-03-28 19:51] LABS: Troponin, Point-of-Care* 0.01 ng/ml (0.01-0.04)
[2024-03-28] MEDS: 0.9 % SODIUM CHLORIDE 1000 ml 1,000 ML IV (19:53)
[2024-03-28 20:01] LABS: Basophils Percent Auto 0.2 % (0.0-3.0); Eosinophils Percent Auto 0.3 % (0.0-7.0); Hematocrit 40.9 % (37.0-53.0); Hemoglobin* 13.9 gm/dL (13.5-17.5); Immature Granulocytes Pct Auto 0.8 %; Lymphocytes Percent Auto 16.1 % (20-44); Mean Corpuscular HGB Conc 34 gm/dL (32-36); Mean Corpuscular Hemoglobin 26 pg (26-34); Mean Corpuscular Volume 78 fL (80-100); Monocytes Percent Auto 14.9 % (0.0-11.0); Neutrophils Percent Auto 67.7 % (42.0-72.0); Platelet Count* 268 K/uL (140-440); RDW Coefficient of Variation % 13.4 % (11.5-15.5); Red Blood Count 5.27 m/uL (4.30-5.90); White Blood Count* 19.55 K/uL (4.50-11.00)
[2024-03-28 20:02] LABS: Slide Review Reflex No
--- OUTSIDE RECORDS SUMMARY | 2024-03-28 20:09 | XMS_ITS | Clinical Summary ---
Author Organization [employer] Address [place], [place] [address] Care Team Providers Care Assembly Member Name Role Phone Pcp, No Primary Care [...] times daily. 60 Tablet 03/10/2024 12:48 PM PANCAKE PROFESSIONAL 4 03/19/20 24 Discontinue d(Reorder (E-cancel not sent)) indomethacin (INDOCIN) 50 mg capsuleIndicatio ns:Pericarditis, unspecified chronicity, unspecified type Take 1 capsule (50 mg) by mouth three times daily for 3 days, THEN take 1 capsule (50 mg) twice a day for 3 days, THEN 1 capsule once a day for 3 days, THEN stop. 18 Capsule 03/10/2024 12:48 PM PANCAKE PROFESSIONAL 03/19/20 24 Discontinue d(*Patient states no longer [...] Department Care Team Description 03/27/2024 9:00 AM PANCAKE PROFESSIONAL Ancillary Procedure [facility] [address] [place] [address] Arrived 03/27/2024 Travel 03/22/[address] [facility] & [address] [address] Ruth Ann Us MD Follow Up; Chest Pain/problem (Per phone message same pain feeling on his left side of his shoulders/ chest and belly area: depending on the position he is in/And per MM Now its back again and I rate it 5.5 out of 10. I also just now realized I have fever 100 F) 03/22/2024 Telephone [facility] [address] [place] [address] Ruth Ann Us MD Error-please disregard 03/19/2024 11:45 AM PANCAKE PROFESSIONAL Office Visit [facility] [address] [place] [address] Ruth Ann Us MD Hospital F/U (03/06-03/10 Pericardial effusion) 03/19/2024 Travel 03/11/2024 Patient Outreach [facility] [address] [place] [address] Audra March, RN Primary RN Care Management (Lace score 14/); Hospital F/U 03/06/2024 7:23 PM PANCAKE PROFESSIONAL - 03/10/2024 1:52 PM PANCAKE PROFESSIONAL Hospital Encounter [facility] [address] [place] [place] [address] s, U Hospitalist SvHaroon Menendez MD [place], [...] = 0.6 oz pur e alcohol) rare [facility] Utilities Answer Date Recorded Do you have [...] on file Legal Sex Male 3:34 PM PANCAKE PROFESSIONAL Gender Identity Not on file Sexual Orientation Not on file Obstetrics History Last Filed Vital Signs Vital Sign Reading Time Taken Comments Blood Pressure 115/77 03/19/2024 11:53 AM PANCAKE PROFESSIONAL Pulse 86 03/19/2024 11:53 AM PANCAKE PROFESSIONAL Temperature 36.6 C (97.9 F) 03/10/2024 8:37 AM PANCAKE PROFESSIONAL Respiratory Rate 16 03/10/2024 8:37 AM PANCAKE PROFESSIONAL Oxygen Saturation 95% 03/19/2024 11:53 AM PANCAKE PROFESSIONAL Inhaled Oxygen Concentration - - Weight 120.2 kg (265 lb) 03/19/2024 11:53 AM PANCAKE PROFESSIONAL Height 172.7 cm (5' 8) 03/06/2024 7:27 PM PANCAKE PROFESSIONAL Body Mass Index 40.29 03/06/2024 7:27 PM PANCAKE PROFESSIONAL Plan of Treatment Upcoming Encounters Date Type Department Care Team (Late st Contact Info) Description 03/29/2024 3:15 PM PANCAKE PROFESSIONAL Office Visit [facility] [address] [place] [address] Ruth Ann Us MD [address] [place] [address] 04/10/2024 10:30 AM PANCAKE PROFESSIONAL Office Visit [facility] [address] [place] [address] Rachel Odom MD [address] [facility] [address] [place] [address] Health Maintenance Due Date Last Done Comments [...] LIMITED WO CONTRAST YESENIA 03/27/2024 9:52 AM PANCAKE PROFESSIONAL Pericarditis, unspecified chronicity, unspecified type Pericardial effusion C-REACTIVE PROTEIN Routine 03/19/2024 1: 11 PM PANCAKE PROFESSIONAL Pericarditis, unspecified chronicity, unspecified type Pericardial effusion IRON PLUS IRON BINDING CAP Routine 03/19/2024 1:10 PM PANCAKE PROFESSIONAL Iron deficiency FERRITIN Routine 03/19/2024 1:10 PM PANCAKE PROFESSIONAL Iron deficiency CBC W PLT NO DIFF Routine 03/19/2024 1:0 7 PM PANCAKE PROFESSIONAL Pericarditis, unspecified chronicity, unspecified type Pericardial effusion SEDIMENTATION RATE Routine 03/19/2024 1: 07 PM PANCAKE PROFESSIONAL Pericarditis, unspecified chronicity, unspecified type Pericardial effusion SCAN CORRESP-EKG RESULTS 03/12/2024 12:40 PM PANCAKE PROFESSIONAL SCAN CORRESP-IMAGING 03/12/2024 12:40 PM PANCAKE PROFESSIONAL ECHO TTE LIMITED WO CONTRAST W LTD DOPPLER Routine 03/10/2024 9:14 AM PANCAKE PROFESSIONAL SCAN-CARDIAC STRIP 03/10/2024 12 :28 AM PANCAKE PROFESSIONAL SCAN-CARDIAC STRIP 03/10/2024 12 :28 AM PANCAKE PROFESSIONAL SCAN-CARDIAC STRIP 03/10/2024 12 :28 AM PANCAKE PROFESSIONAL SCAN-CARDIAC STRIP 03/09/2024 8: 16 PM PANCAKE PROFESSIONAL SCAN-CARDIAC STRIP 03/09/2024 8: 16 PM PANCAKE PROFESSIONAL SCAN-CARDIAC STRIP 03/09/2024 8: 16 PM PANCAKE PROFESSIONAL SCAN-CARDIAC STRIP 03/09/2024 8: 16 PM PANCAKE PROFESSIONAL SCAN-CARDIAC STRIP 03/09/2024 8: 16 PM PANCAKE PROFESSIONAL SCAN-CARDIAC STRIP 03/09/2024 8: 16 PM PANCAKE PROFESSIONAL SCAN-CARDIAC STRIP 03/09/2024 5: 52 PM PANCAKE PROFESSIONAL SCAN-CARDIAC STRIP 03/09/2024 5: 52 PM PANCAKE PROFESSIONAL SCAN-CARDIAC STRIP 03/09/2024 5: 52 PM PANCAKE PROFESSIONAL SCAN-CARDIAC STRIP 03/09/2024 7: 41 AM PANCAKE PROFESSIONAL SCAN-CARDIAC STRIP 03/09/2024 7: 41 AM PANCAKE PROFESSIONAL SCAN-CARDIAC STRIP 03/09/2024 7: 41 AM PANCAKE PROFESSIONAL SCAN-CARDIAC STRIP 03/09/2024 3: 37 AM PANCAKE PROFESSIONAL SCAN-CARDIAC STRIP 03/09/2024 3: 37 AM PANCAKE PROFESSIONAL SCAN-CARDIAC STRIP 03/09/2024 3: 37 AM PANCAKE PROFESSIONAL SCAN-CARDIAC STRIP 03/08/2024 7: 01 PM PANCAKE PROFESSIONAL SCAN-CARDIAC STRIP 03/08/2024 7: 01 PM PANCAKE PROFESSIONAL SCAN-CARDIAC STRIP 03/08/2024 7: 01 PM PANCAKE PROFESSIONAL ECHO TTE LIMITED WO CONTRAST W COLOR W LTD DOPPLER Routine 03/08/2024 11:[address] CHEST ABDOMEN PELVIS W STAT 03/07/2024 2:06 PM PANCAKE PROFESSIONAL EXTRA TUBE GOLD/SST Today 03/07/2024 1 :18 PM PANCAKE PROFESSIONAL ANTI HCV Today 03/07/2024 1:18 PM PANCAKE PROFESSIONAL LD,TOTAL Today 03/07/2024 1:18 PM PANCAKE PROFESSIONAL ECHO TTE COMPLETE W CONTRAST Routine 03/07/2024 12:36 PM PANCAKE PROFESSIONAL SCAN-CARDIAC STRIP 03/07/2024 7: 51 AM PANCAKE PROFESSIONAL SCAN-CARDIAC STRIP 03/07/2024 7: 51 AM PANCAKE PROFESSIONAL SCAN-CARDIAC STRIP 03/07/2024 7: 51 AM PANCAKE PROFESSIONAL ANTI HIV 1/2 YESENIA 03/07/2024 5:53 AM PANCAKE PROFESSIONAL HBSAG (HBS) YESENIA 03/07/2024 5:53 AM PANCAKE PROFESSIONAL PHOSPHORUS YESENIA 03/07/2024 5:53 AM PANCAKE PROFESSIONAL URIC ACID YESENIA 03/07/2024 5:53 AM PANCAKE PROFESSIONAL IRON PLUS IRON BINDING CAP YESENIA 03/07/2024 5:53 AM PANCAKE PROFESSIONAL FERRITIN YESENIA 03/07/2024 5:53 AM PANCAKE PROFESSIONAL TROPONIN T (HS) ONE TIME Timed 03/07/2024 5:53 AM PANCAKE PROFESSIONAL SCAN-CARDIAC STRIP 03/07/2024 12 :11 AM PANCAKE PROFESSIONAL SCAN-CARDIAC STRIP 03/07/2024 12 :11 AM PANCAKE PROFESSIONAL SCAN-CARDIAC STRIP 03/07/2024 12 :11 AM PANCAKE PROFESSIONAL BLOOD CULTURE YESENIA 03/06/2024 9:34 PM PANCAKE PROFESSIONAL TROPONIN T (HS) ONE TIME Timed 03/06/2024 9:33 PM PANCAKE PROFESSIONAL PROCALCITONIN Today 03/06/2024 9:33 PM PANCAKE PROFESSIONAL BLOOD CULTURE YESENIA 03/06/2024 9:33 PM PANCAKE PROFESSIONAL EKG 12 LEAD Timed 03/06/2024 9:08 PM PANCAKE PROFESSIONAL SCAN-CARDIAC STRIP 03/06/2024 8: 27 PM PANCAKE PROFESSIONAL SCAN-CARDIAC STRIP 03/06/2024 8: 27 PM PANCAKE PROFESSIONAL SCAN-CARDIAC STRIP 03/06/2024 8: 27 PM PANCAKE PROFESSIONAL ANTI HBC YESEINA 03/06/2024 8:17 PM PANCAKE PROFESSIONAL LD,TOTAL YESENIA 03/06/2024 8:17 PM PANCAKE PROFESSIONAL ANTINUCLEAR ANTIBODY BY IFA Today 03/06/2024 8:17 PM PANCAKE PROFESSIONAL SEDIMENTATION RATE Today 03/06/2024 8: 17 PM PANCAKE PROFESSIONAL C-REACTIVE PROTEIN Timed 03/06/2024 8: 17 PM PANCAKE PROFESSIONAL COMP METABOLIC PANEL YESENIA 03/06/2024 8:17 PM PANCAKE PROFESSIONAL CBC W PLT NO DIFF YESENIA 03/06/2024 8:1 7 PM PANCAKE PROFESSIONAL from Last 3 Months Results * ECHO TTE LIMITED WO CONTRAST (03/27/2024 9:52 AM PANCAKE PROFESSIONAL) Only the most recent of3 resultswithin the time period is included. EJECTION FRACTION 55 - 60% Anatomical Region Laterality Modality Ultrasound 03/27/2024 9:33 AM PANCAKE PROFESSIONAL Narrative 03/27/2024 10:29 AM PANCAKE PROFESSIONAL ECHOCARDIOGRAM LORRAINE BOONE : 2000 23 years Study Date: 03/27/2024 9:33:57 AM Gender: M BP: 115/77 mmHg Height: 173.00 cm BSA: 2.30 m Weight: 120.00 kg Tech: MSR Referring MD: RUTH ANN US Site: [facility] Reading Location: Mobile OP Patient Location: Outpatient. [...] . This study was interpreted by an [facility] accredited facility. Final Procedure Note Neil Valdez MD - 03/27/2024 ECHOCARDIOGRAM LORRAINE BOONE : 2000 23 years Study Date: 03/27/2024 9:33:57 AM Gender: M BP: 115/77 mmHg Height: 173.00 cm BSA: 2.30 m Weight: 120.00 kg Tech: MSR Referring MD: RUTH ANN US Site: [facility] Reading Location: Mobile OP Patient Location: Outpatient. [...] . This study was interpreted by an [facility] accredited facility. Final us Ruth Ann Us MD ECHO ORD Final Resu lt * C-REACTIVE PROTEIN (03/19/2024 1:11 PM PANCAKE PROFESSIONAL) Only the most recent of2 resultswithin the time period is included. Pathologist [facility] C-REACTIVE PROTEIN 7.2 <8.0 mg/L [facility] Blood BLOOD SPECIMEN / Unknown 03/19/2024 1:11 PM PANCAKE PROFESSIONAL 03/19/2024 1:12 PM PANCAKE PROFESSIONAL Ruth Ann Us MD CHEMISTRY Final Resu lt [facility] [address] [place] [address], [facility] [address] [place] [address] * IRON PLUS IRON BINDING CAP (03/19/2024 1:10 PM PANCAKE PROFESSIONAL) Only the most recent of2 resultswithin the time period is included. [facility] IRON, TOTAL 75 50 - 195 mcg/dL [facility] IRON BINDING CAPACITY 372 250 - 425 mcg/dL (calc) [facility] % SATURATION 20 20 - 48 % (calc) [facility] [facility] [place] Blood BLOOD SPECIMEN / Unknown 03/19/2024 1:10 PM PANCAKE PROFESSIONAL 03/19/2024 1:10 PM PANCAKE PROFESSIONAL Narrative [facility] - 03/20/2024 4:58 AM PANCAKE PROFESSIONAL FASTING:NO FASTING: NO Ruth Ann Us MD CHEMISTRY Final Resu lt [facility] [address] [place] [address], [facility] [address] [place] [address] * FERRITIN (03/19/2024 1:10 PM PANCAKE PROFESSIONAL) Only the most recent of2 resultswithin the time period is included. [facility] FERRITIN 183 38 - 380 ng/mL [facility] Blood BLOOD SPECIMEN / Unknown 03/19/2024 1:10 PM PANCAKE PROFESSIONAL 03/19/2024 1:10 PM PANCAKE PROFESSIONAL Narrative [facility] - 03/20/2024 5:25 AM PANCAKE PROFESSIONAL FASTING:NO FASTING: NO Ruth Ann sU MD CHEMISTRY Final Resu lt Performing Organization Address [facility]/ZIP Co de Phone Number [facility] [address] [place] [address], [facility] [address] [place] [address] * SEDIMENTATION RATE (03/19/2024 1:07 PM PANCAKE PROFESSIONAL) Only the most recent of2 resultswithin the time period is included. SED RATE BY MODIFIED PETTYREN 9 < OR = 15 mm/h [facility] Blood BLOOD SPECIMEN / Unknown 03/19/2024 1:07 PM PANCAKE PROFESSIONAL 03/19/2024 1:08 PM PANCAKE PROFESSIONAL Narrative [facility] - 03/20/2024 3:34 AM PANCAKE PROFESSIONAL FASTING:YES FASTING: YES Ruth Ann Us MD HEMATOLOGY Final Resu lt Performing Organization Address [facility]/ZIP Co de Phone Number [facility] [address] [place] [address], [facility] [address] [place] [address] * (ABNORMAL) CBC W PLT NO DIFF (03/19/2024 1:07 PM PANCAKE PROFESSIONAL) Only the most recent of2 resultswithin the [...] BLOOD SPECIMEN / Unknown 03/19/2024 1:07 PM PANCAKE PROFESSIONAL 03/19/2024 1:08 PM PANCAKE PROFESSIONAL Narrative [facility] - 03/20/2024 2:04 AM PANCAKE PROFESSIONAL FASTING:YES FASTING: YES Ruth Ann Us MD HEMATOLOGY Final Resu lt [facility] [address] [place] [address], [facility]-[address] [address] * SCAN CORRESP-EKG RESULTS (03/12/2024 12:40 PM PANCAKE PROFESSIONAL) Narrative 03/12/2024 12:40 PM PANCAKE PROFESSIONAL Ordered by an unspecified provider. us Other Clinical Staff OTHER Final Resul t * SCAN CORRESP-IMAGING (03/12/2024 12:40 PM PANCAKE PROFESSIONAL) Anatomical Region Laterality Modality Other Narrative 03/12/2024 12:40 PM PANCAKE PROFESSIONAL Ordered by an unspecified provider. us Other Clinical Staff OTHER Final Resul t * SCAN-CARDIAC STRIP (03/10/2024 12:28 AM PANCAKE PROFESSIONAL) us Scanner OTHER Final Result * SCAN-CARDIAC STRIP (03/10/2024 12:28 AM PANCAKE PROFESSIONAL) us Scanner OTHER Final Result * SCAN-CARDIAC STRIP (03/10/2024 12:28 AM PANCAKE PROFESSIONAL) us Scanner OTHER Final Result * SCAN-CARDIAC STRIP (03/09/2024 8:16 PM PANCAKE PROFESSIONAL) us Scanner OTHER Final Result * SCAN-CARDIAC STRIP (03/09/2024 8:16 PM PANCAKE PROFESSIONAL) us Scanner OTHER Final Result * SCAN-CARDIAC STRIP (03/09/2024 8:16 PM PANCAKE PROFESSIONAL) us Scanner OTHER Final Result * SCAN-CARDIAC STRIP (03/09/2024 8:16 PM PANCAKE PROFESSIONAL) us Scanner OTHER Final Result * SCAN-CARDIAC STRIP (03/09/2024 8:16 PM PANCAKE PROFESSIONAL) us Scanner OTHER Final Result * SCAN-CARDIAC STRIP (03/09/2024 8:16 PM PANCAKE PROFESSIONAL) us Scanner OTHER Final Result * SCAN-CARDIAC STRIP (03/09/2024 5:52 PM PANCAKE PROFESSIONAL) us Scanner OTHER Final Result * SCAN-CARDIAC STRIP (03/09/2024 5:52 PM PANCAKE PROFESSIONAL) us Scanner OTHER Final Result * SCAN-CARDIAC STRIP (03/09/2024 5:52 PM PANCAKE PROFESSIONAL) us Scanner OTHER Final Result * SCAN-CARDIAC STRIP (03/09/2024 7:41 AM PANCAKE PROFESSIONAL) us Scanner OTHER Final Result * SCAN-CARDIAC STRIP (03/09/2024 7:41 AM PANCAKE PROFESSIONAL) us Scanner OTHER Final Result * SCAN-CARDIAC STRIP (03/09/2024 7:41 AM PANCAKE PROFESSIONAL) us Scanner OTHER Final Result * SCAN-CARDIAC STRIP (03/09/2024 3:37 AM PANCAKE PROFESSIONAL) us Scanner OTHER Final Result * SCAN-CARDIAC STRIP (03/09/2024 3:37 AM PANCAKE PROFESSIONAL) us Scanner OTHER Final Result * SCAN-CARDIAC STRIP (03/09/2024 3:37 AM PANCAKE PROFESSIONAL) us Scanner OTHER Final Result * SCAN-CARDIAC STRIP (03/08/2024 7:01 PM PANCAKE PROFESSIONAL) us Scanner OTHER Final Result * SCAN-CARDIAC STRIP (03/08/2024 7:01 PM PANCAKE PROFESSIONAL) us Scanner OTHER Final Result * SCAN-CARDIAC STRIP (03/08/2024 7:01 PM PANCAKE PROFESSIONAL) us Scanner OTHER Final Result * CT CHEST ABDOMEN PELVIS W (03/07/2024 2:06 PM PANCAKE PROFESSIONAL) Anatomical Region Laterality Modality Abdomen, Pelvis, AORTA, LIVER, SPLEEN, CHEST Computed Tomography 03/07/2024 2:06 PM PANCAKE PROFESSIONAL Impressions 03/07/2024 2:16 PM PANCAKE PROFESSIONAL Moderate-sized pericardial effusion of unclear etiology. No evidence of a solid mediastinal mass. Narrative 03/07/2024 2:16 PM PANCAKE PROFESSIONAL For Patients: As a result of the Century Cures Act, medical imaging exams and procedure reports are released immediately into your electronic medical record. You may view this report before your referring provider. If you have questions, please contact your health care provider. EXAM: CT CHEST ABDOMEN PELVIS W LOCATION: [facility] MEDICAL IMAGING DATE: 03/07/2024 INDICATION: concerns for [...] EXAM: CT CHEST ABDOMEN PELVIS W LOCATION: [facility] MEDICAL IMAGING DATE: 03/07/2024 INDICATION: concerns for [...] * EXTRA TUBE GOLD/SST (03/07/2024 1:18 PM PANCAKE PROFESSIONAL) Blood BLOOD SPECIMEN / Unknown Non-Lab Venipuncture / Unknown 03/07/2024 1:18 PM PANCAKE PROFESSIONAL 03/07/2024 1:24 PM PANCAKE PROFESSIONAL Doctor Unknown LABORATORY Final Result [facility] SENDOUT INTERNAL ZIP [id number] [place] [address] * ANTI HCV (03/07/2024 1:18 PM PANCAKE PROFESSIONAL) Pathologist [facility] HEPATITIS C ANTIBODY Non-Reacti ve Non-React keon 03/07/2024 3:51 PM PANCAKE PROFESSIONAL [facility]-S[facility] TRAL LABORATORY Comment:Please note, per [...] Unknown Venipuncture / Unknown 03/07/2024 1:18 PM PANCAKE PROFESSIONAL 03/07/2024 1:23 PM PANCAKE PROFESSIONAL Mau CHAMORRO SEND OUTS Final Res ult [facility] [address] [place] [address], * LD,TOTAL (03/07/2024 1:18 PM PANCAKE PROFESSIONAL) Only the most recent of2 resultswithin the time period is included. Pathologist [facility] LD,TOTAL 139 135 - 225 IU/L 03/07/2024 2:12 PM PANCAKE PROFESSIONAL [facility] Blood BLOOD SPECIMEN / Unknown Venipuncture / Unknown 03/07/2024 1:18 PM PANCAKE PROFESSIONAL 03/07/2024 1:23 PM PANCAKE PROFESSIONAL Mau CHAMORRO CHEMISTRY Final Res ult [facility] SENDOUT INTERNAL ZIP [phone] [place] [address] * ECHO TTE COMPLETE W CONTRAST (03/07/2024 12:36 PM PANCAKE PROFESSIONAL) EJECTION FRACTION 55-60% PROSOLV Anatomical Region Laterality Modality Ultrasound 03/07/2024 11:5 3 AM PANCAKE PROFESSIONAL Narrative 03/07/2024 1:13 PM PANCAKE PROFESSIONAL [address] [address] Main: [email or web address] Transthoracic Echo Report LORRAINE BOONE ID: [id number] Age: 23 : 2000 Ordering Provider: HAROON SUNSHINE Exam Date: 03/07/2024 11:53 Gender: M Prick Stitcher: EDITH Height: 68 in BSA: 2.27 m BP: 132 / 80 Weight: 256 lbs BMI: 38.9 kg/m HR: 116 Location: Inpatient (Portable) Rhythm: Sinus Tachycardia Procedure Components: 2D imaging with contrast, Color Doppler, Spectral Doppler Indications: acute pericarditis, Acute pericarditis, unspecified Technical Quality: Fair Contrast: Definity Constrast Dose (ml): 0.30 [facility]#: [id number] Final Conclusion 1. Small circumferential pericardial effusion, [...] Aortic Root ZScore: 0.42 Mendez Junior MD [facility] Accredited Site (Electronically Signed) Final Date: 07 March 2024 13:13 ICD-10 Codes: I30.9 Procedure Note Mendez Junior MD - 03/07/2024 [place] [address] Main: [email or web address] Transthoracic Echo Report LORRAINE BOONE Isabella ID: [id number] Age: 23 : 2000 Ordering Provider:HAROON SUNSHINE Exam Date: 03/07/2024 11:53 Gender: M Prick Stitcher: EDITH Height: 68 in BSA: 2.27 m BP: 132 / 80 Weight: 256 lbs BMI: 38.9 kg/m HR: 116 Location: Inpatient (Portable) Rhythm: Sinus Tachycardia Procedure Components: 2D imaging with contrast, Color Doppler, SpectralDoppler Indications: acute pericarditis, Acute pericarditis, unspecified Technical Quality: Fair Contrast: Definity Constrast Dose (ml): 0.30 [facility]#: [id number] Final Conclusion 1. Small circumferential pericardial effusion, [...] Aortic Root ZScore: 0.42 Mendez Junior MD [facility] Accredited Site (Electronically Signed) Final Date: 07 March 2024 13:13 ICD-10 Codes: I30.9 us Haroon Sunshine MD ECHO ORD Final Resu lt * SCAN-CARDIAC STRIP (03/07/2024 7:51 AM PANCAKE PROFESSIONAL) us Scanner OTHER Final Result * SCAN-CARDIAC STRIP (03/07/2024 7:51 AM PANCAKE PROFESSIONAL) us Scanner OTHER Final Result * SCAN-CARDIAC STRIP (03/07/2024 7:51 AM PANCAKE PROFESSIONAL) us Scanner OTHER Final Result * (ABNORMAL) TROPONIN T (HS) ONE TIME (03/07/2024 5:53 AM PANCAKE PROFESSIONAL) Only the most recent of2 resultswithin the time period is included. TROPONIN T HS 50(H) 6-15 ng/L ng/L 03/07/2024 7:18 AM PANCAKE PROFESSIONAL [facility] Blood BLOOD SPECIMEN / Unknown Venipuncture / Unknown 03/07/2024 5:53 AM PANCAKE PROFESSIONAL 03/07/2024 6:09 AM PANCAKE PROFESSIONAL Narrative [facility] - 03/07/2024 7:18 AM PANCAKE PROFESSIONAL hs-cTnT (Elecsys Troponin T Gen 5) concentration [...] Matilde Elizondo MD CHEMISTRY Final Re sult [facility] SENDOUT INTERNAL ZIP [phone] [place] [address] * HBSAG (HBS) (03/07/2024 5:53 AM PANCAKE PROFESSIONAL) HBSAG Nonreactive Nonreactive 03/07/2024 2:52 PM PANCAKE PROFESSIONAL [facility] Blood BLOOD SPECIMEN / Unknown Venipuncture / Unknown 03/07/2024 5:53 AM PANCAKE PROFESSIONAL 03/07/2024 6:09 AM PANCAKE PROFESSIONAL [facility] SEND OUTS Final Res ult [facility] [address] [place] [address], [place] * ANTI HIV 1/2 (03/07/2024 5:53 AM PANCAKE PROFESSIONAL) HIV-1/HIV-2 SCREEN Non-Reacti ve Non-Reacti ve 03/07/2024 2:52 PM PANCAKE PROFESSIONAL [facility] Comment:HIV-1 p24 and HIV-1/ HIV-2 Ab Not Detected. Blood BLOOD SPECIMEN / Unknown Venipuncture / Unknown 03/07/2024 5:53 AM PANCAKE PROFESSIONAL 03/07/2024 6:09 AM PANCAKE PROFESSIONAL Mau [facility]RO SEND OUTS Final Res ult [facility] [address] [place], [place] [id number], [place] * URIC ACID (03/07/2024 5:53 AM PANCAKE PROFESSIONAL) URIC ACID 4.5 3.4 - 7.0 mg/dL 03/07/2024 11:47 AM PANCAKE PROFESSIONAL [facility] Blood BLOOD SPECIMEN / Unknown Venipuncture / Unknown 03/07/2024 5:53 AM PANCAKE PROFESSIONAL 03/07/2024 6:09 AM PANCAKE PROFESSIONAL Mau CHAMORRO CHEMISTRY Final Res ult [facility] SENDOUT INTERNAL ZIP [id number] [place] [address] * PHOSPHORUS (03/07/2024 5:53 AM PANCAKE PROFESSIONAL) PHOSPHORUS 3.2 2.5 - 4.5 mg/dL 03/07/2024 11:47 AM PANCAKE PROFESSIONAL [facility] Blood BLOOD SPECIMEN / Unknown Venipuncture / Unknown 03/07/2024 5:53 AM PANCAKE PROFESSIONAL 03/07/2024 6:09 AM PANCAKE PROFESSIONAL us Mau CHAMORRO CHEMISTRY Final Res ult [facility] SENDOUT INTERNAL ZIP [id number] [place] [address] * SCAN-CARDIAC STRIP (03/07/2024 12:11 AM PANCAKE PROFESSIONAL) us Scanner OTHER Final Result * SCAN-CARDIAC STRIP (03/07/2024 12:11 AM PANCAKE PROFESSIONAL) us Scanner OTHER Final Result * SCAN-CARDIAC STRIP (03/07/2024 12:11 AM PANCAKE PROFESSIONAL) us Scanner OTHER Final Result * BLOOD CULTURE (03/06/2024 9:34 PM PANCAKE PROFESSIONAL) Only the most recent of2 resultswithin the time period is included. CULTURE No Growth. 03/12/2024 1:50 AM PANCAKE PROFESSIONAL [facility] Blood BLOOD SPECIMEN / Unknown Venipuncture / Unknown 03/06/2024 9:34 PM PANCAKE PROFESSIONAL 03/06/2024 9:48 PM PANCAKE PROFESSIONAL Narrative [facility] - 03/12/2024 1:50 AM PANCAKE PROFESSIONAL Low volume blood culture received; possible false negative culture. us Haroon Sunshine MD MICROBIOLOGY Final Resu lt [facility] [address] [place] [address], [place] * PROCALCITONIN (03/06/2024 9:33 PM PANCAKE PROFESSIONAL) PROCALCITONIN 0.08 ng/ml 03/06/2024 10:21 PM PANCAKE PROFESSIONAL [facility] Blood BLOOD SPECIMEN / Unknown Butterfly / Unknown 03/06/2024 9:33 PM PANCAKE PROFESSIONAL 03/06/2024 9:48 PM PANCAKE PROFESSIONAL Narrative [facility] - 03/06/2024 10:21 PM PANCAKE PROFESSIONAL Procalcitonin for initial assessment of Lower Respiratory [...] Sunshine MD SEND OUTS Final Resu lt [facility] SENDOUT INTERNAL ZIP [phone] [place] [address] * EKG 12 LEAD (03/06/2024 9:08 PM PANCAKE PROFESSIONAL) Interpretation Sinus tachycardia Diffuse ST elevations with FL segment depressions, consider acute pericarditis Abnormal ECG No previous ECGs available [facility] NOW Ventricular Rate 110 BPM [facility] NOW Atrial Rate 110 BPM [facility] NOW P-R Interval 152 ms [facility] NOW QRS Duration 82 ms [facility] NOW QT 284 ms [facility] NOW QTc 384 ms BEYOND NOW P [place] 35 degrees BEYOND NOW R [place] 45 degrees BEYOND NOW T [place] -8 degrees BEYOND NOW 03/06/2024 9:08 PM PANCAKE PROFESSIONAL 03/06/2024 9:52 PM PANCAKE PROFESSIONAL us Matilde Elizondo MD EKG ORD Final Re sult Performing Organization Address [facility]/ZIP Co de Phone Number [facility] NOW [place], [place] * SCAN-CARDIAC STRIP (03/06/2024 8:27 PM PANCAKE PROFESSIONAL) us Scanner OTHER Final Result * SCAN-CARDIAC STRIP (03/06/2024 8:27 PM [employer]CAKE PROFESSIONAL) us Scanner OTHER Final Result * SCAN-CARDIAC STRIP (03/06/2024 8:27 PM PANCAKE PROFESSIONAL) us Scanner OTHER Final Result * ANTINUCLEAR ANTIBODY BY IFA (03/06/2024 8:17 PM PANCAKE PROFESSIONAL) Pathologist [facility] ANTINUCLEAR ANTIBODY (SALAZAR) Negative Negative 03/08/2024 12:50 PM PANCAKE PROFESSIONAL [facility] [employer] Blood BLOOD SPECIMEN / Unknown Venipuncture / Unknown 03/06/2024 8:17 PM PANCAKE PROFESSIONAL 03/06/2024 8:28 PM [employer]KE PROFESSIONAL Narrative [facility] - 03/08/2024 12:50 PM [employer]CAKE PROFESSIONAL Method: SALAZAR screen performed by (IFA) on HEP-2 substrate, IgG us Haroon Sunshine MD CHEMISTRY Final Resu lt Performing Organization Address City/[facility]/ZIP Co de Phone Number [facility] [address] [place] [address], [place] * ANTI HBC (03/06/2024 8:17 PM PANCAKE PROFESSIONAL) ANTI HBC Non-React keon Non-React keon 03/07/2024 12:08 PM PANCAKE PROFESSIONAL [facility] Comment:Anti-HBc Antibodies not detected. Does not exclude the possibility of exposure to or infection with HBV. Levels of Anti-HBc may be below the cut-off in early infection. Blood BLOOD SPECIMEN / Unknown Venipuncture / Unknown 03/06/2024 8:17 PM PANCAKE PROFESSIONAL 03/06/2024 8:28 PM [employer]CAKE PROFESSIONAL us Mau [facility] [employer] Final Res ult [facility] [address] [place] [address], * (ABNORMAL) COMP METABOLIC PANEL (03/06/2024 8:17 PM PANCAKE PROFESSIONAL) SODIUM 134(L) 136 - 145 mmol/L 03/06/2024 8:50 PM [facility] POTASSIUM 4.0 3.5 - 5.1 mmol/L 03/06/2024 8:50 PM [facility] CHLORIDE 100 98 - 107 mmol/L 03/06/2024 8:50 PM [facility] CO2,TOTAL 21(L) 22 - 29 mmol/L 03/06/2024 8:50 PM [facility] ANION GAP 13 5 - 18 03/06/2024 8:50 PM [facility] GLUCOSE 117(H) 70 - 99 mg/dL 03/06/2024 8:50 PM [facility] CALCIUM 9.2 8.8 - 10.4 mg/dL 03/06/2024 8:50 PM [facility] Comment: Reference ranges for this test were updated on 01/23/2024 to reflect our healthy population more accurately. Reference range changes are not retroactively applied to results, but previous results using the same methodology can be interpreted in the context of the new reference range. BUN 9 6 - 20 mg/dL 03/06/2024 8:50 PM [facility] CREATININE 0.71 0.70 - 1.20 mg/dL 03/06/2024 8:50 PM [facility] BUN/CREAT RATIO 13 10 - 20 4 8:50 PM [facility] eGFR >90 >90 mL/min/1. 73m2 03/06/2024 8:50 PM [facility] Comment:As of 2021, eG FR is calculated by the CKD-EPI creatinine equation without race adjustment. eGFR can be influenced by muscle mass, exercise, and diet. The reported eGFR is an estimation only and is only applicable if the renal function is stable. ALBUMIN 4.1 4.0 - 4.9 g/dL 03/06/2024 8:50 PM [facility] PROTEIN,TOTAL 8.2(H) 6.0 - 8.0 g/dL 03/06/2024 8:50 PM [facility] BILIRUBIN,TOTAL 0.5 0.0 - 1.2 mg/dL 03/06/2024 8:50 PM [facility] ALK PHOSPHATASE 54 40 - 129 IU/L 03/06/2024 8:50 PM [facility] ALT (SGPT) 23 10 - 50 IU/L 03/06/2024 8:50 PM [facility] AST (SGOT) 20 10 - 50 IU/L 03/06/2024 8:50 PM [facility] Blood BLOOD SPECIMEN / Unknown Venipuncture / Unknown 03/06/2024 8:17 PM PANCAKE PROFESSIONAL 03/06/2024 8:28 PM [employer]CAKE PROFESSIONAL us Haroon Sunshine MD CHEMISTRY Final Resu lt [facility] SENDOUT [place]NAL ZIP [phone] [place] [phone] from Last 3 Months Insurance [employer] GENERIC Advance Directives * Full Code (Latest Code Status on File) Date Activated Date Inactivated Comments 03/06/2024 7:57 PM 03/10/2024 4:02 PM Question Answer Comments Code Status Discussion: Reviewed Preferences Care Teams Assembly Member Relationship Specialty Start Date End Date Pcp, No . PCP - General 03/28/24
[2024-03-28 20:13] LABS: Chloride* 103 mmol/L (96-114); Potassium* 3.9 mmol/L (3.6-5.1); Sodium* 136 mmol/L (135-149)
[2024-03-28 20:15] LABS: Creatinine* 0.8 mg/dL (0.5-1.5); Est. Creatinine Clearance* 141.31; Estimated Glomerular Filt Rate 129 ml/min
[2024-03-28 20:16] LABS: Anion Gap 8 mEq/L (7-15); Blood Urea Nitrogen* 18 mg/dL (5-24); Carbon Dioxide* 25 mmol/L (20-32); Glucose* 91 mg/dL (60-115)
[2024-03-28 20:17] LABS: Calcium* 8.8 mg/dL (8.4-10.6)
[2024-03-28 20:28] LABS: Troponin I* 0.01 ng/mL (0.01-0.04)
[2024-03-28 20:50] LABS: C Reactive Protein* 32.8 mg/dL (0.5-1.0)
[2024-03-28 21:21] LABS: Erythrocyte SedimentationRate* 44 mm/hr (2-15)
[2024-03-28] MEDS: OXYCODONE 5 MG TABLET PO (21:23)
[2024-03-28 21:51] LABS: PCR FLU A Negative PCR FLU A (Negative); PCR FLU B Negative PCR FLU B (Negative); PCR RSV Negative PCR RSV (Negative); SARS PCR* Negative SARS-CoV-2 (Negative)
[2024-03-28] MEDS: KETOROLAC 30 MG/ML inj IVP (21:58)
[2024-03-28] MEDS: OMEPRAZOLE 20 MG CAPSULE DR PO (21:58)
[2024-03-28] MEDS: hydrOXYzine pamoate 25 MG CAPSULE PO (23:39)
[2024-03-29] VITALS (11 sets, daily range): BP systolic 106–129; BP diastolic 70–91; PULSE 111–120; RESP 20; TEMP 36.9; O2SAT 91–97
[2024-03-29 05:13] LABS: Basophils Percent Auto 0.2 % (0.0-3.0); Eosinophils Percent Auto 0.2 % (0.0-7.0); Hematocrit 38.4 % (37.0-53.0); Immature Granulocytes Pct Auto 0.3 %; Lymphocytes Percent Auto 15.2 % (20-44); Mean Corpuscular HGB Conc 34 gm/dL (32-36); Mean Corpuscular Hemoglobin 27 pg (26-34); Mean Corpuscular Volume 78 fL (80-100); Monocytes Percent Auto 12.4 % (0.0-11.0); Neutrophils Percent Auto 71.7 % (42.0-72.0); Platelet Count* 229 K/uL (140-440); RDW Coefficient of Variation % 13.7 % (11.5-15.5); Red Blood Count 4.91 m/uL (4.30-5.90); White Blood Count* 15.18 K/uL (4.50-11.00)
[2024-03-29 05:16] LABS: Slide Review Reflex No
[2024-03-29 05:25] LABS: Chloride* 101 mmol/L (96-114); Potassium* 4.1 mmol/L (3.6-5.1); Sodium* 136 mmol/L (135-149)
[2024-03-29 05:27] LABS: Creatinine* 0.8 mg/dL (0.5-1.5); Est. Creatinine Clearance* 141.31; Estimated Glomerular Filt Rate 129 ml/min
[2024-03-29 05:28] LABS: Anion Gap 9 mEq/L (7-15); Blood Urea Nitrogen* 19 mg/dL (5-24); Calcium* 8.8 mg/dL (8.4-10.6); Carbon Dioxide* 26 mmol/L (20-32); Glucose* 114 mg/dL (60-115)
[2024-03-29] MEDS: OXYCODONE 5 MG TABLET PO (05:43)
[2024-03-29 06:00] LABS: C Reactive Protein* > 27.0 mg/dL (0.5-1.0)
[2024-03-29 06:05] LABS: Erythrocyte SedimentationRate* 51 mm/hr (2-15)
== END 2024-03-29 06:57 | disposition home or self-care (01) ==
PROVIDERS: Family Medicine; Emergency Provider Family Medicine; PCP Family Medicine
DX: I30.0 Acute nonspecific idiopathic pericarditis (principal)
CPT/HCPCS: 36415; 71046; 80048; 83605; 84484; 85025; 85651; 86140; 87631; 93005; 94761; 96374; 96375; 99284; 99285; A9270; J1885; J7030

== ENCOUNTER 2024-05-29 13:31 | Emergency (ER) | payer OTHER, SELFPAY ==
[2024-05-29] VITALS (19 sets, daily range): BP systolic 106–135; BP diastolic 65–79; PULSE 72–142; RESP 16–54; TEMP 37.1–37.8; O2SAT 91–99; BMI 39.0
--- OUTSIDE RECORDS SUMMARY | 2024-05-29 13:33 | XMS_ITS | Clinical Summary ---
Author Organization [facility] Address [address] [place] [id number] Care Team Providers Care Cooling Pan Tender Name Role Phone Pcp, No Primary Care Provider Unavailabl e Allergies No known active allergies Medications ergocalciferol, vitamin D2, (VITAMIN D2 ORAL) Take 1 Tablet by mouth once daily. Active FISH OIL-DHA-EPA ORAL Take 1 Capsule by mouth once daily. Active ascorbic acid, vitamin C, (Vitamin C) 500 mg tablet Take 500 mg by mouth once daily. Active LORazepam 1 mg tabletIndication s:Insomnia, unspecified type Take 1 Tablet (1 mg) by mouth at bedtime if needed for Sleep. 12 Tablet 5 Active colchicine 0.6 mg tabletIndication s:Pericarditis, unspecified chronicity, unspecified type Take 1 Tablet (0.6 mg) by mouth two times daily. 180 Tablet 2 Active ibuprofen (ADVIL; MOTRIN) 800 mg tablet Take 800 mg by mouth three times daily. Active triamcinolone 0.1% (KENALOG IN ORABASE) 0.1 % pasteIndications :Aphthous ulcer Apply small amount to affected area in mouth 2 times a day. 5 g Active Active Problems Problem Noted Date Diagnosed Date Pericardial effusion 03/06/2024 Mediastinal mass 03/06/2024 Pericarditis 03/06/2024 Resolved Problems Problem Noted Date Diagnosed Date Resolved Date Elevated C-reactive protein (CRP) 03/06/2024 04/16/2024 Fever 03/06/2024 04/16/2024 SIRS (systemic inflammatory response syndrome) 03/06/2024 04/16/2024 Hyponatremia 03/06/2024 04/16/2024 Encounters Date Type Department Care Team Description 05/29/2024 Nurse Triage [facility] [address] [place] [address] Jose Us MD Symptoms (symptoms) 04/17/2024 1:30 PM DESIGN ASSEMBLER Office Visit [facility] [address] [place] [address] Caty Lopes, [facility] Visit 04/16/2024 3:40 PM DESIGN ASSEMBLER Office Visit [facility] [address] [place] [address] Jose Us MD Follow Up 04/16/2024 2:00 PM DESIGN ASSEMBLER Office Visit [facility] [address] [place] [phone] Jesica Delatorre PA Follow Up (Acute percarditis) 04/16/2024 1:00 PM DESIGN ASSEMBLER Orders Only [facility] [address] [place] [address] Lab, [facility] 04/16/2024 Travel 04/10/2024 Telephone [facility] [address] [place] [phone] Pcp, No Appointment (STAT referral ) 03/29/2024 3:09 PM DESIGN ASSEMBLER - 03/29/2024 7:27 PM DESIGN ASSEMBLER Emergency [facility] [address] [place] [address] [place] [address] Ramana Loco MD Acute pericarditis, unspecified type (Primary Dx); Anxiety; Insomnia, unspecified type Discharge Disposition: Home Self Care 03/29/2024 Travel 03/29/2024 Nurse Triage [facility] [address] [place] [address] Jose Us MD Arrhythmia 03/27/2024 9:00 AM DESIGN ASSEMBLER Ancillary Procedure [facility] [address] [place] [address] 03/27/2024 Travel 03/22/2024 Nurse Triage [facility] [address] [place] [address] Jose Us MD Follow Up; Chest Pain/problem (Per phone message same pain feeling on his left side of his shoulders/ chest and belly area: depending on the position he is in/And per MM Now its back again and I rate it 5.5 out of 10. I also just now realized I have fever 100 F) 03/22/2024 Telephone [facility] [address] [place] [address] Jose Us MD Error-please disregard 03/19/2024 11:45 AM DESIGN ASSEMBLER Office Visit [facility] [address] [place] [address] Jose Us MD Hospital F/U (03/06-03/10 Pericardial effusion) 03/19/2024 Travel 03/11/2024 Patient Outreach [facility] [address] [place] [address] Audra March, RN Primary RN Care Management (Lace score 14/); Hospital F/U 03/06/2024 7:23 PM DESIGN ASSEMBLER - 03/10/2024 1:52 PM DESIGN ASSEMBLER Hospital Encounter [facility] [address] [place] [address] s, U Hospitalist Haroon Menendez MD Sam[facility]wardana, [facility], [...] Used Date Smoking Tobacco: Former Cigarettes 0.3 3.2 S tarted: 2021 Passive Smoke Exposure: Never Smokeless Tobacco: Never Tobacco Cessation:Counseling Given: Yes Alcohol Use Standard Drinks/Week Comments Yes 0 (1 standard drink = 0.6 oz pur e alcohol) rare [employer] Answer Date Recorded Do you [...] ushed or yelled at (see row info)? No 03/29/2024 Interpersonal Safety Abuse - Not on file 03/29/2024 Interpersonal Safety Ambulatory Vulnerability No t on file 03/29/2024 Utilities Answer Date Recorded Do you have trouble paying f or utilities (for example, heat, electricity, water, phone)? 2 03/06/2024 Sex and Gender Information Value Date Recorded Sex Assigned at Not on file Legal Sex Male 3:34 PM DESIGN ASSEMBLER Gender Identity Not on file Sexual Orientation Not on file Obstetrics History Last Filed Vital Signs Vital Sign Reading Time Taken Comments Blood Pressure 112/66 04/16/2024 3:40 PM DESIGN ASSEMBLER Pulse 72 04/16/2024 3:40 PM DESIGN ASSEMBLER Temperature 37 C (98.6 F) 03/29/2024 1:54 PM DESIGN ASSEMBLER Respiratory Rate 18 03/29/2024 1:54 PM DESIGN ASSEMBLER Oxygen Saturation 97% 04/16/2024 3:40 PM DESIGN ASSEMBLER Inhaled Oxygen Concentration - - Weight 117.6 kg (259 lb 4.8 oz) 04/16/2024 3:40 PM DESIGN ASSEMBLER Height 172.7 cm (5' 8) 04/16/2024 2:52 PM DESIGN ASSEMBLER Body Mass Index 39.43 04/16/2024 2:52 PM DESIGN ASSEMBLER Plan of Treatment Upcoming Encounters Date Type Department Care Team (Late st Contact Info) Description 06/11/2024 1:30 PM CDT Office Visit [facility] [address] [place] [phone] Case, Jesica Aaliyah, [place] [address] [facility] [place] [address] Health Maintenance Due Date Last Done Comments Tdap 2013 Depression screening for age 12+ 2014 HPV series for age 9-26 (1 - Male 3-dose series) 2017 BMI (ht and wt on same day) for age 18+ 2020 Tetanus booster 2022 COVID-19 vaccine series (1 - 2023- season) 2023 Influenza Vaccine (#1) 2023 HIV for age 15-65 Completed 03/07/2024, 09/11/2023 Hepatitis C screening for ag e 18-79 Completed 03/07/2024, 09/11/2023 Meningococcal series for age 11-21 Aged Out No longer eligible b ased on patient's age to complete this topic Pneumococcal series for age 6-49 Aged Out No longer eligible b ased on patient's age to complete this topic Procedures Procedure Name Priority Date/Time Associated Diagnosis Comments C-REACTIVE PROTEIN Routine 04/16/2024 4: 41 PM DESIGN ASSEMBLER Pericarditis, unspecified chronicity, unspecified type Pericardial effusion SEDIMENTATION RATE Routine 04/16/2024 4: 41 PM DESIGN ASSEMBLER Pericarditis, unspecified chronicity, unspecified type Pericardial effusion CBC W PLT NO DIFF Routine 04/16/2024 4:4 1 PM DESIGN ASSEMBLER Fatigue, unspecified type TSH WITH REFLEX Routine 04/16/2024 4:41 PM DESIGN ASSEMBLER Fatigue, unspecified type COMP METABOLIC PANEL Routine 04/16/2024 4:41 PM DESIGN ASSEMBLER Fatigue, unspecified type Mediastinal mass BEDSIDE US STUDY ARCHIVE Routine 03/29/2024 6:03 PM DESIGN ASSEMBLER TROPONIN T (HS) ONE TIME Timed 03/29/2024 5:06 PM DESIGN ASSEMBLER EKG 12 LEAD STAT 03/29/2024 2:36 PM DESIGN ASSEMBLER PRO-BNP YESENIA 03/29/2024 2:33 PM DESIGN ASSEMBLER C-REACTIVE PROTEIN YESENIA 03/29/2024 2: 33 PM DESIGN ASSEMBLER EXTRA TUBE BLUE Today 03/29/2024 2:33 PM DESIGN ASSEMBLER TROPONIN T (HS) ACUTE W/2HR REFLEX STAT 03/29/2024 2:33 PM DESIGN ASSEMBLER BASIC METABOLIC PANEL STAT 03/29/2024 2:33 PM DESIGN ASSEMBLER CBC W PLT NO DIFF STAT 03/29/2024 2:3 3 PM DESIGN ASSEMBLER ECHO TTE LIMITED WO CONTRAST YESENIA 03/27/2024 9:52 AM DESIGN ASSEMBLER Pericarditis, unspecified chronicity, unspecified type Pericardial effusion C-REACTIVE PROTEIN Routine 03/19/2024 1: 11 PM DESIGN ASSEMBLER Pericarditis, unspecified chronicity, unspecified type Pericardial effusion IRON PLUS IRON BINDING CAP Routine 03/19/2024 1:10 PM DESIGN ASSEMBLER Iron deficiency FERRITIN Routine 03/19/2024 1:10 PM DESIGN ASSEMBLER Iron deficiency CBC W PLT NO DIFF Routine 03/19/2024 1:0 7 PM DESIGN ASSEMBLER Pericarditis, unspecified chronicity, unspecified type Pericardial effusion SEDIMENTATION RATE Routine 03/19/2024 1: 07 PM DESIGN ASSEMBLER Pericarditis, unspecified chronicity, unspecified type Pericardial effusion SCAN CORRESP-EKG RESULTS 03/12/2024 12:40 PM DESIGN ASSEMBLER SCAN CORRESP-IMAGING 03/12/2024 12:40 PM DESIGN ASSEMBLER ECHO TTE LIMITED WO CONTRAST W LTD DOPPLER Routine 03/10/2024 9:14 AM DESIGN ASSEMBLER SCAN-CARDIAC STRIP 03/10/2024 12 :28 AM DESIGN ASSEMBLER SCAN-CARDIAC STRIP 03/10/2024 12 :28 AM DESIGN ASSEMBLER SCAN-CARDIAC STRIP 03/10/2024 12 :28 AM DESIGN ASSEMBLER SCAN-CARDIAC STRIP 03/09/2024 8: 16 PM DESIGN ASSEMBLER SCAN-CARDIAC STRIP 03/09/2024 8: 16 PM DESIGN ASSEMBLER SCAN-CARDIAC STRIP 03/09/2024 8: 16 PM DESIGN ASSEMBLER SCAN-CARDIAC STRIP 03/09/2024 8: 16 PM DESIGN ASSEMBLER SCAN-CARDIAC STRIP 03/09/2024 8: 16 PM DESIGN ASSEMBLER SCAN-CARDIAC STRIP 03/09/2024 8: 16 PM DESIGN ASSEMBLER SCAN-CARDIAC STRIP 03/09/2024 5: 52 PM DESIGN ASSEMBLER SCAN-CARDIAC STRIP 03/09/2024 5: 52 PM DESIGN ASSEMBLER SCAN-CARDIAC STRIP 03/09/2024 5: 52 PM DESIGN ASSEMBLER SCAN-CARDIAC STRIP 03/09/2024 7: 41 AM DESIGN ASSEMBLER SCAN-CARDIAC STRIP 03/09/2024 7: 41 AM DESIGN ASSEMBLER SCAN-CARDIAC STRIP 03/09/2024 7: 41 AM DESIGN ASSEMBLER SCAN-CARDIAC STRIP 03/09/2024 3: 37 AM DESIGN ASSEMBLER SCAN-CARDIAC STRIP 03/09/2024 3: 37 AM DESIGN ASSEMBLER SCAN-CARDIAC STRIP 03/09/2024 3: 37 AM DESIGN ASSEMBLER SCAN-CARDIAC STRIP 03/08/2024 7: 01 PM DESIGN ASSEMBLER SCAN-CARDIAC STRIP 03/08/2024 7: 01 PM DESIGN ASSEMBLER SCAN-CARDIAC STRIP 03/08/2024 7: 01 PM DESIGN ASSEMBLER ECHO TTE LIMITED WO CONTRAST W COLOR W LTD DOPPLER Routine 03/08/2024 11:[address] CHEST ABDOMEN PELVIS W STAT 03/07/2024 2:06 PM DESIGN ASSEMBLER EXTRA TUBE GOLD/SST Today 03/07/2024 1 :18 PM DESIGN ASSEMBLER ANTI HCV Today 03/07/2024 1:18 PM DESIGN ASSEMBLER LD,TOTAL Today 03/07/2024 1:18 PM DESIGN ASSEMBLER ECHO TTE COMPLETE W CONTRAST Routine 03/07/2024 12:36 PM DESIGN ASSEMBLER SCAN-CARDIAC STRIP 03/07/2024 7: 51 AM DESIGN ASSEMBLER SCAN-CARDIAC STRIP 03/07/2024 7: 51 AM DESIGN ASSEMBLER SCAN-CARDIAC STRIP 03/07/2024 7: 51 AM DESIGN ASSEMBLER ANTI HIV 1/2 YESENIA 03/07/2024 5:53 AM DESIGN ASSEMBLER HBSAG (HBS) YESENIA 03/07/2024 5:53 AM DESIGN ASSEMBLER PHOSPHORUS YESENIA 03/07/2024 5:53 AM DESIGN ASSEMBLER URIC ACID YESENIA 03/07/2024 5:53 AM DESIGN ASSEMBLER IRON PLUS IRON BINDING CAP YESENIA 03/07/2024 5:53 AM DESIGN ASSEMBLER FERRITIN YESENIA 03/07/2024 5:53 AM DESIGN ASSEMBLER TROPONIN T (HS) ONE TIME Timed 03/07/2024 5:53 AM DESIGN ASSEMBLER SCAN-CARDIAC STRIP 03/07/2024 12 :11 AM DESIGN ASSEMBLER SCAN-CARDIAC STRIP 03/07/2024 12 :11 AM DESIGN ASSEMBLER SCAN-CARDIAC STRIP 03/07/2024 12 :11 AM DESIGN ASSEMBLER BLOOD CULTURE YESENIA 03/06/2024 9:34 PM DESIGN ASSEMBLER TROPONIN T (HS) ONE TIME Timed 03/06/2024 9:33 PM DESIGN ASSEMBLER PROCALCITONIN Today 03/06/2024 9:33 PM DESIGN ASSEMBLER BLOOD CULTURE YESENIA 03/06/2024 9:33 PM DESIGN ASSEMBLER EKG 12 LEAD Timed 03/06/2024 9:08 PM DESIGN ASSEMBLER SCAN-CARDIAC STRIP 03/06/2024 8: 27 PM DESIGN ASSEMBLER SCAN-CARDIAC STRIP 03/06/2024 8: 27 PM DESIGN ASSEMBLER SCAN-CARDIAC STRIP 03/06/2024 8: 27 PM DESIGN ASSEMBLER ANTI HBC YESENIA 03/06/2024 8:17 PM DESIGN ASSEMBLER LD,TOTAL YESENIA 03/06/2024 8:17 PM DESIGN ASSEMBLER ANTINUCLEAR ANTIBODY BY IFA Today 03/06/2024 8:17 PM DESIGN ASSEMBLER SEDIMENTATION RATE Today 03/06/2024 8: 17 PM DESIGN ASSEMBLER C-REACTIVE PROTEIN Timed 03/06/2024 8: 17 PM DESIGN ASSEMBLER COMP METABOLIC PANEL YESENIA 03/06/2024 8:17 PM DESIGN ASSEMBLER CBC W PLT NO DIFF YESENIA 03/06/2024 8:1 7 PM DESIGN ASSEMBLER from Last 3 Months Results * SEDIMENTATION RATE (04/16/2024 4:41 PM DESIGN ASSEMBLER) Only the most recent of3 resultswithin the time period is included. SED RATE BY MODIFIED JOSUE 6 < OR = 15 mm/h [facility] Blood BLOOD SPECIMEN / Unknown 04/16/2024 4:41 PM DESIGN ASSEMBLER 04/16/2024 4:42 PM DESIGN ASSEMBLER Jesica CHAMORRO HEMATOLOGY Final Res ult Performing Organization Address [facility]/ZIP Co de Phone Number [facility] [address] [place] [address], [facility] [address] [place] [address] * TSH WITH REFLEX (04/16/2024 4:41 PM DESIGN ASSEMBLER) TSH W/REFLEX TO FT4 1.21 0.40 - 4.50 mIU/L [facility] Blood BLOOD SPECIMEN / Unknown 04/16/2024 4:41 PM DESIGN ASSEMBLER 04/16/2024 4:42 PM DESIGN ASSEMBLER us Jose Us MD CHEMISTRY Final Resu lt [facility] [address] [place] [address], [place] [phone] [facility] [address] [address] * (ABNORMAL) CBC W PLT NO DIFF (04/16/2024 4:41 PM DESIGN ASSEMBLER) Only the most recent of4 resultswithin the time period is included. WHITE BLOOD CELL COUNT 7.8 3.8 - 10.8 Thousand/u L [facility] RED BLOOD CELL COUNT 5.67 4.20 - 5.80 Million/uL [facility] HEMOGLOBIN 14.9 13.2 - 17.1 g/dL [facility] HEMATOCRIT 45.5 38.5 - 50.0 % [facility] MCV 80.2 80.0 - 100.0 fL [facility] MCH 26.3(L) 27.0 - 33.0 pg [facility] MCHC 32.7 32.0 - 36.0 g/dL [facility] Comment: For adults, a slight decrease in the calculated MCHC value (in the range of 30 to 32 g/dL) is most likely not clinically significant; however, it should be interpreted with caution in correlation with other red cell parameters and the patient's clinical condition. RDW 14.1 11.0 - 15.0 % [facility] PLATELET COUNT 325 140 - 400 Thousand/u L [facility] MPV 10.7 7.5 - 12.5 fL [facility] Blood BLOOD SPECIMEN / Unknown 04/16/2024 4:41 PM DESIGN ASSEMBLER 04/16/2024 4:42 PM DESIGN ASSEMBLER us Jose Us MD HEMATOLOGY Final Resu lt [facility] [address] [facility] [place] [address], [facility] [address] [facility] [place] [address] * (ABNORMAL) CRP (04/16/2024 4:41 PM DESIGN ASSEMBLER) Only the most recent of4 resultswithin the time period is included. [facility] C-REACTIVE PROTEIN 8.9(H) <8.0 mg/L [facility] Blood BLOOD SPECIMEN / Unknown 04/16/2024 4:41 PM DESIGN ASSEMBLER 04/16/2024 4:42 PM DESIGN ASSEMBLER Jesica CHAMORRO CHEMISTRY Final Res ult [employer] [employer] [facility] [address] [place] [address], [facility] [address] [place] [address] * COMP METABOLIC PANEL (04/16/2024 4:41 PM DESIGN ASSEMBLER) Only the most recent of2 resultswithin the time period is included. [facility] GLUCOSE 83 65 - 99 mg/dL [facility] Comment: Fasting reference interval UREA NITROGEN (BUN) 16 7 - 25 mg/dL [facility] CREATININE 0.99 0.60 - 1.24 mg/dL [facility] EGFR 111 > OR = 60 mL/min/1. 73m2 [facility] BUN/CREATININE RATIO SEE NOTE: 6 - 22 (calc) [facility] Comment: Not Reported: BUN and Creatinine are within reference range. SODIUM 141 135 - 146 mmol/L [facility] POTASSIUM 4.4 3.5 - 5.3 mmol/L [facility] CHLORIDE 104 98 - 110 mmol/L [facility] CARBON DIOXIDE 28 20 - 32 mmol/L [facility] CALCIUM 9.9 8.6 - 10.3 mg/dL [facility] PROTEIN, TOTAL 7.7 6.1 - 8.1 g/dL [facility] ALBUMIN 4.7 3.6 - 5.1 g/dL [facility] GLOBULIN 3.0 1.9 - 3.7 g/dL (calc) [facility] ALBUMIN/GLOBULIN RATIO 1.6 1.0 - 2.5 (calc) [facility] BILIRUBIN, TOTAL 0.4 0.2 - 1.2 mg/dL [facility] ALKALINE PHOSPHATASE 71 36 - 130 U/L [facility] AST 20 10 - 40 U/L [facility] ALT 31 9 - 46 U/L [facility] Blood BLOOD SPECIMEN / Unknown 04/16/2024 4:41 PM DESIGN ASSEMBLER 04/16/2024 4:42 PM DESIGN ASSEMBLER Jose Us MD CHEMISTRY Final Resu lt [employer] [facility] [address] [place] [address], [facility] [address] [place] [address] * TROPONIN T (HS) ONE TIME (03/29/2024 5:06 PM DESIGN ASSEMBLER) Only the most recent of3 resultswithin the time period is included. [facility] TROPONIN T HS 15 6-15 ng/L ng/L 03/29/2024 5:46 PM DESIGN ASSEMBLER [facility] Blood BLOOD SPECIMEN / Unknown Non-Lab Venipuncture / Unknown 03/29/2024 5:06 PM DESIGN ASSEMBLER 03/29/2024 5:24 PM DESIGN ASSEMBLER Ramana Loco MD CHEMISTRY Final Resul t [facility] [address] [place] [id number] [address] [place] [address] * EKG 12 LEAD (03/29/2024 2:36 PM DESIGN ASSEMBLER) Only the most recent of2 resultswithin the time period is included. [facility] Interpretation Sinus tachycardia Low voltage QRS Abnormal ECG When compared with ECG of 06-Mar-2024 21:08, ST now depressed in Inferior leads Non-specific change in ST segment in Anterior leads int-lat TW1 BEYOND NOW Ventricular Rate 137 BPM BEYOND NOW Atrial Rate 137 BPM BEYOND NOW P-R Interval 118 ms BEYOND NOW QRS Duration 70 ms BEYOND NOW QT 284 ms BEYOND NOW QTc 428 ms BEYOND NOW P [place] 38 degrees BEYOND NOW R [place] 70 degrees BEYOND NOW T [place] -33 degrees BEYOND NOW 03/29/2024 2:36 PM DESIGN ASSEMBLER 04/01/2024 10:33 AM DESIGN ASSEMBLER us Ramana Loco MD EKG ORD Final Resul t BEYOND NOW [place], [place] * TROPONIN T (HS) ACUTE W/2HR REFLEX (03/29/2024 2:33 PM DESIGN ASSEMBLER) TROPONIN T HS 15 6-15 ng/L ng/L 03/29/2024 3:17 PM DESIGN ASSEMBLER [facility] Blood BLOOD SPECIMEN / Unknown Non-Lab Venipuncture / Unknown 03/29/2024 2:33 PM DESIGN ASSEMBLER 03/29/2024 2:37 PM DESIGN ASSEMBLER Narrative [facility] - 03/29/2024 3:17 PM DESIGN ASSEMBLER hs-cTnT (Elecsys Troponin T Gen 5) concentration [...] low risk in emergency department patient population. Ramana Loco MD CHEMISTRY Final Resul t Performing Organization Address [facility] Co vt Phone Number [facility] [place] [address] * EXTRA TUBE BLUE (03/29/2024 2:33 PM DESIGN ASSEMBLER) Blood BLOOD SPECIMEN / Unknown Non-Lab Venipuncture / Unknown 03/29/2024 2:33 PM DESIGN ASSEMBLER 03/29/2024 2:38 PM DESIGN ASSEMBLER Doctor Unknown LABORATORY Final Result Performing Organization Address [facility] Co [facility] Number [facility] [place] [address] * (ABNORMAL) PRO-BNP (03/29/2024 2:33 PM DESIGN ASSEMBLER) [facility] Signature PRO-BNP 291(H) <125 pg/mL 03/29/2024 3:18 PM DESIGN ASSEMBLER [facility] Blood BLOOD SPECIMEN / Unknown Non-Lab Venipuncture / Unknown 03/29/2024 2:33 PM DESIGN ASSEMBLER 03/29/2024 2:37 PM DESIGN ASSEMBLER Narrative [facility] - 03/29/2024 3:18 PM DESIGN ASSEMBLER The following cut-points have been suggested for the use of proBNP for the diagnostic evaluation of heart failure (HF) in patient with acute dyspnea. Patients with eGFR >= 60 Diagnosis (rule in CHF) <50 Years Old 450 pg/mL 50 - 75 Years Old 900 pg/mL >75 Years Old 1800 pg/mL Exclusion (rule out CHF) Age Independent 300 pg/mL A cutoff of 1200 pg/mL for patients with an eGFR <60 yields a diagnostic sensitivity of 89% and specificity of 72% for acute congestive heart failure. Ruperto Titus MD SEND OUTS Final Result [facility] [place] [phone] [place] [address] * (ABNORMAL) BASIC METABOLIC PANEL (03/29/2024 2:33 PM DESIGN ASSEMBLER) SODIUM 134(L) 136 - 145 mmol/L 03/29/2024 3:17 PM [facility] POTASSIUM 4.4 3.5 - 5.1 mmol/L 03/29/2024 3:17 PM [facility] CHLORIDE 98 98 - 107 mmol/L 03/29/2024 3:17 PM [facility] CO2,TOTAL 25 22 - 29 mmol/L 03/29/2024 3:17 PM [facility] ANION GAP 11 5 - 18 03/29/2024 3:17 PM [facility] GLUCOSE 102(H) 70 - 99 mg/dL 03/29/2024 3:17 PM [facility] CALCIUM 9.1 8.8 - 10.4 mg/dL 03/29/2024 3:17 PM [facility] Comment: Reference ranges for this test were updated on 01/23/2024 to reflect our healthy population more accurately. Reference range changes are not retroactively applied to results, but previous results using the same methodology can be interpreted in the context of the new reference range. BUN 14 6 - 20 mg/dL 03/29/2024 3:17 PM [facility] CREATININE 0.92 0.70 - 1.20 mg/dL 03/29/2024 3:17 PM [facility] BUN/CREAT RATIO 15 10 - 20 3:17 PM DESIGN ASSEMBLER [facility] eGFR >90 >90 mL/min/1. 73m2 03/29/2024 3:17 PM DESIGN ASSEMBLER [facility] Comment:As of 2021, eG FR is calculated by the CKD-EPI creatinine equation without race adjustment. eGFR can be influenced by muscle mass, exercise, and diet. The reported eGFR is an estimation only and is only applicable if the renal function is stable. Blood BLOOD SPECIMEN / Unknown Non-Lab Venipuncture / Unknown 03/29/2024 2:33 PM DESIGN ASSEMBLER 03/29/2024 2:37 PM DESIGN ASSEMBLER us Ramana Loco MD CHEMISTRY Final Resul t [facility] [address] [place] [phone] [place] [address] * ECHO TTE LIMITED WO CONTRAST (03/27/2024 9:52 AM DESIGN ASSEMBLER) Only the most recent of3 resultswithin the time period is included. EJECTION FRACTION 55 - 60% Anatomical Region Laterality Modality Ultrasound 03/27/2024 9:33 AM DESIGN ASSEMBLER Narrative 03/27/2024 10:29 AM DESIGN ASSEMBLER ECHOCARDIOGRAM LORRAINE BOONE : 2000 23 years Study Date: 03/27/2024 9:33:57 AM Gender: M BP: 115/77 mmHg Height: 173.00 cm BSA: 2.30 m Weight: 120.00 kg Tech: MSR Referring MD: JOSE US Site: [facility] Reading Location: Mobile OP Patient Location: Outpatient. [...] . This study was interpreted by an [facility] accredited facility. Final Procedure Note Neil Valdez MD - 03/27/2024 ECHOCARDIOGRAM LORRAINE BOONE : 2000 23 years Study Date: 03/27/2024 9:33:57 AM Gender: M BP: 115/77 mmHg Height: 173.00 cm BSA: 2.30 m Weight: 120.00 kg Tech: HERMES Referring MD: JOSE US Site: [facility] Reading Location: Mobile OP Patient Location: Outpatient. [...] . This study was interpreted by an [facility] accredited facility. Final Jose Us MD ECHO ORD Final Resu lt * IRON PLUS IRON BINDING CAP (03/19/2024 1:10 PM DESIGN ASSEMBLER) Only the most recent of2 resultswithin the time period is included. IRON, TOTAL 75 50 - 195 mcg/dL [facility] IRON BINDING CAPACITY 372 250 - 425 mcg/dL (calc) [facility] % SATURATION 20 20 - 48 % (calc) [facility] Blood BLOOD SPECIMEN / Unknown 03/19/2024 1:10 PM DESIGN ASSEMBLER 03/19/2024 1:10 PM DESIGN ASSEMBLER Narrative [facility] - 03/20/2024 4:58 AM DESIGN ASSEMBLER FASTING:NO FASTING: NO Jose Us MD CHEMISTRY Final Resu lt [employer] [facility] [place] [address] [place] [address], [facility] [address] [place] [address] * FERRITIN (03/19/2024 1:10 PM DESIGN ASSEMBLER) Only the most recent of2 resultswithin the time period is included. FERRITIN 183 38 - 380 ng/mL [facility] Blood BLOOD SPECIMEN / Unknown 03/19/2024 1:10 PM DESIGN ASSEMBLER 03/19/2024 1:10 PM DESIGN ASSEMBLER Narrative [facility] - 03/20/2024 5:25 AM DESIGN ASSEMBLER FASTING:NO FASTING: NO us Jose Us MD CHEMISTRY Final Resu lt [facility] [address], [place] [id number], [place] [phone] [facility] [address] [place] [address] * SCAN CORRESP-EKG RESULTS (03/12/2024 12:40 PM DESIGN ASSEMBLER) Narrative 03/12/2024 12:40 PM DESIGN ASSEMBLER Ordered by an unspecified provider. us Other Clinical Staff OTHER Final Resul t * SCAN CORRESP-IMAGING (03/12/2024 12:40 PM DESIGN ASSEMBLER) Anatomical Region Laterality Modality Other Narrative 03/12/2024 12:40 PM DESIGN ASSEMBLER Ordered by an unspecified provider. us Other Clinical Staff OTHER Final Resul t * SCAN-CARDIAC STRIP (03/10/2024 12:28 AM DESIGN ASSEMBLER) us Scanner OTHER Final Result * SCAN-CARDIAC STRIP (03/10/2024 12:28 AM DESIGN ASSEMBLER) us Scanner OTHER Final Result * SCAN-CARDIAC STRIP (03/10/2024 12:28 AM DESIGN ASSEMBLER) us Scanner OTHER Final Result * SCAN-CARDIAC STRIP (03/09/2024 8:16 PM DESIGN ASSEMBLER) us Scanner OTHER Final Result * SCAN-CARDIAC STRIP (03/09/2024 8:16 PM DESIGN ASSEMBLER) us Scanner OTHER Final Result * SCAN-CARDIAC STRIP (03/09/2024 8:16 PM DESIGN ASSEMBLER) us Scanner OTHER Final Result * SCAN-CARDIAC STRIP (03/09/2024 8:16 PM DESIGN ASSEMBLER) us Scanner OTHER Final Result * SCAN-CARDIAC STRIP (03/09/2024 8:16 PM DESIGN ASSEMBLER) us Scanner OTHER Final Result * SCAN-CARDIAC STRIP (03/09/2024 8:16 PM DESIGN ASSEMBLER) us Scanner OTHER Final Result * SCAN-CARDIAC STRIP (03/09/2024 5:52 PM DESIGN ASSEMBLER) us Scanner OTHER Final Result * SCAN-CARDIAC STRIP (03/09/2024 5:52 PM DESIGN ASSEMBLER) us Scanner OTHER Final Result * SCAN-CARDIAC STRIP (03/09/2024 5:52 PM DESIGN ASSEMBLER) us Scanner OTHER Final Result * SCAN-CARDIAC STRIP (03/09/2024 7:41 AM DESIGN ASSEMBLER) us Scanner OTHER Final Result * SCAN-CARDIAC STRIP (03/09/2024 7:41 AM DESIGN ASSEMBLER) us Scanner OTHER Final Result * SCAN-CARDIAC STRIP (03/09/2024 7:41 AM DESIGN ASSEMBLER) us Scanner OTHER Final Result * SCAN-CARDIAC STRIP (03/09/2024 3:37 AM DESIGN ASSEMBLER) us Scanner OTHER Final Result * SCAN-CARDIAC STRIP (03/09/2024 3:37 AM DESIGN ASSEMBLER) us Scanner OTHER Final Result * SCAN-CARDIAC STRIP (03/09/2024 3:37 AM DESIGN ASSEMBLER) us Scanner OTHER Final Result * SCAN-CARDIAC STRIP (03/08/2024 7:01 PM DESIGN ASSEMBLER) us Scanner OTHER Final Result * SCAN-CARDIAC STRIP (03/08/2024 7:01 PM DESIGN ASSEMBLER) us Scanner OTHER Final Result * SCAN-CARDIAC STRIP (03/08/2024 7:01 PM DESIGN ASSEMBLER) us Scanner OTHER Final Result * CT CHEST ABDOMEN PELVIS W (03/07/2024 2:06 PM DESIGN ASSEMBLER) Anatomical Region Laterality Modality Abdomen, Pelvis, AORTA, LIVER, SPLEEN, CHEST Computed Tomography 03/07/2024 2:06 PM DESIGN ASSEMBLER Impressions 03/07/2024 2:16 PM DESIGN ASSEMBLER Moderate-sized pericardial effusion of unclear etiology. No evidence of a solid mediastinal mass. Narrative 03/07/2024 2:16 PM DESIGN ASSEMBLER For Patients: As a result of the Cures Act, medical imaging exams and procedure reports are released immediately into your electronic medical record. You may view this report before your referring provider. If you have questions, please contact your health care provider. EXAM: CT CHEST ABDOMEN PELVIS W LOCATION: [facility] DATE: 03/07/2024 INDICATION: concerns for [...] For Patients: As a result of the 21st Century Cures Act, medical imagingexams and procedure reports are released immediately into your electronicmedical record. You may view this report before your referring provider.If you have questions, please contact your health care provider. EXAM: CT CHEST ABDOMEN PELVIS W LOCATION: [facility] DATE: 03/07/2024 INDICATION: concerns for [...] * EXTRA TUBE GOLD/SST (03/07/2024 1:18 PM DESIGN ASSEMBLER) Blood BLOOD SPECIMEN / Unknown Non-Lab Venipuncture / Unknown 03/07/2024 1:18 PM DESIGN ASSEMBLER 03/07/2024 1:24 PM DESIGN ASSEMBLER us Doctor Unknown LABORATORY Final Result [facility] SENDOUT [place]IP [id number] [address] [place] [address] * ANTI HCV (03/07/2024 1:18 PM DESIGN ASSEMBLER) HEPATITIS C ANTIBODY Non-Reacti ve Non-React keon 03/07/2024 3:51 PM DESIGN ASSEMBLER [facility] Comment:Please note, per www .CDC.gov: If a patient is known to be at high risk of HCV infection, or is symptomatic, and the physician's suspicion of HCV infection is high, HCV RNA testing is often employed and is of diagnostic value, even after an initial negative anti-HCV test result. Blood BLOOD SPECIMEN / Unknown Venipuncture / Unknown 03/07/2024 1:18 PM DESIGN ASSEMBLER 03/07/2024 1:23 PM DESIGN ASSEMBLER Mau CHAMORRO SEND OUTS Final Res ult [facility] [address] [place] [address], * LD,TOTAL (03/07/2024 1:18 PM DESIGN ASSEMBLER) Only the most recent of2 resultswithin the time period is included. LD,TOTAL 139 135 - 225 IU/L 03/07/2024 2:12 PM DESIGN ASSEMBLER [facility] Blood BLOOD SPECIMEN / Unknown Venipuncture / Unknown 03/07/2024 1:18 PM DESIGN ASSEMBLER 03/07/2024 1:23 PM DESIGN ASSEMBLER Mau CHAMORRO CHEMISTRY Final Res ult [facility] SENDOUT INTERNAL ZIP [address] [place] [address] * ECHO TTE COMPLETE W CONTRAST (03/07/2024 12:36 PM DESIGN ASSEMBLER) Pathologist [facility] EJECTION FRACTION 55-60% PROSOLV Anatomical Region Laterality Modality Ultrasound 03/07/2024 11:5 3 AM DESIGN ASSEMBLER Narrative 03/07/2024 1:13 PM DESIGN ASSEMBLER [address] [address] Main: [email or web address] Transthoracic Echo Report LORRAINE BOONEian ID: [id number] Age: 23 : 2000 Ordering Provider: HAROON SUNSHINE Exam Date: 03/07/2024 11:53 Gender: M Medical Stenographer: EDITH Height: 68 in BSA: 2.27 m BP: 132 / 80 Weight: 256 lbs BMI: 38.9 kg/m HR: 116 Location: Inpatient (Portable) Rhythm: Sinus Tachycardia Procedure Components: 2D imaging with contrast, Color Doppler, Spectral Doppler Indications: acute pericarditis, Acute pericarditis, unspecified Technical Quality: Fair Contrast: Definity Constrast Dose (ml): 0.30 [facility]MERLY NAMED [facility]#: [id number] Final Conclusion 1. Small circumferential pericardial effusion, [...] Aortic Root ZScore: 0.42 Mendez Junior MD [facility] Accredited Site (Electronically Signed) Final Date: 07 March 2024 13:13 ICD-10 Codes: I30.9 Procedure Note Mendez Junior MD - 03/07/[address] [address] Main: [email or web address] Transthoracic Echo Report LORRAINE BOONE ID: [id number] Age: 23 : 2000 Ordering Provider:HAROON SUNSHINE Exam Date: 03/07/2024 11:53 Gender: M Medical Stenographer: EDITH Height: 68 in BSA: 2.27 m BP: 132 / 80 Weight: 256 lbs BMI: 38.9 kg/m HR: 116 Location: Inpatient (Portable) Rhythm: Sinus Tachycardia Procedure Components: 2D imaging with contrast, Color Doppler, SpectralDoppler Indications: acute pericarditis, Acute pericarditis, unspecified Technical Quality: Fair Contrast: Definity Constrast Dose (ml): 0.30 [facility] NAMED [facility]#: [id number] Final Conclusion 1. Small circumferential pericardial effusion, [...] Aortic Root ZScore: 0.42 Mendez Junior MD [facility] Accredited Site (Electronically Signed) Final Date: 07 March 2024 13:13 ICD-10 Codes: I30.9 us Haroon Sunshine MD ECHO ORD Final Resu lt * SCAN-CARDIAC STRIP (03/07/2024 7:51 AM DESIGN ASSEMBLER) us Scanner OTHER Final Result * SCAN-CARDIAC STRIP (03/07/2024 7:51 AM DESIGN ASSEMBLER) us Scanner OTHER Final Result * SCAN-CARDIAC STRIP (03/07/2024 7:51 AM DESIGN ASSEMBLER) us Scanner OTHER Final Result * HBSAG (HBS) (03/07/2024 5:53 AM DESIGN ASSEMBLER) [facility] HBSAG Nonreactive Nonreactive 03/07/2024 2:52 PM DESIGN ASSEMBLER [facility] Blood BLOOD SPECIMEN / Unknown Venipuncture / Unknown 03/07/2024 5:53 AM DESIGN ASSEMBLER 03/07/2024 6:09 AM DESIGN ASSEMBLER us Mau CHAMORRO SEND OUTS Final Res ult Performing Organization Address City/[facility]/ZIP Co de Phone Number [facility] [address] [place] [address], [place] * ANTI HIV 1/2 (03/07/2024 5:53 AM DESIGN ASSEMBLER) [facility] HIV-1/HIV-2 SCREEN Non-Reacti ve Non-Reacti ve 03/07/2024 2:52 PM DESIGN ASSEMBLER [facility] Comment:HIV-1 p24 and HIV-1/ HIV-2 Ab Not Detected. Blood BLOOD SPECIMEN / Unknown Venipuncture / Unknown 03/07/2024 5:53 AM DESIGN ASSEMBLER 03/07/2024 6:09 AM DESIGN ASSEMBLER us Mau CHAMORRO SEND OUTS Final Res ult Performing Organization Address City/[facility]/ZIP Co de Phone Number [facility] [address] [place] [phone], [place] * URIC ACID (03/07/2024 5:53 AM DESIGN ASSEMBLER) URIC ACID 4.5 3.4 - 7.0 mg/dL 03/07/2024 11:47 AM DESIGN ASSEMBLER [facility] Blood BLOOD SPECIMEN / Unknown Venipuncture / Unknown 03/07/2024 5:53 AM DESIGN ASSEMBLER 03/07/2024 6:09 AM DESIGN ASSEMBLER us Mau CHAMORRO CHEMISTRY Final Res ult Performing Organization Address [facility]/ZIP Co de Phone Number [facility] SENDOUT INTERNAL ZIP [address] [address] [place] [address] * PHOSPHORUS (03/07/2024 5:53 AM DESIGN ASSEMBLER) PHOSPHORUS 3.2 2.5 - 4.5 mg/dL 03/07/2024 11:47 AM DESIGN ASSEMBLER [facility] Blood BLOOD SPECIMEN / Unknown Venipuncture / Unknown 03/07/2024 5:53 AM DESIGN ASSEMBLER 03/07/2024 6:09 AM DESIGN ASSEMBLER us Mau CHAMORRO CHEMISTRY Final Res ult Performing Organization Address City/[facility]/ZIP Co de Phone Number [facility] SENDOUT INTERNAL ZIP [phone] [place] [address] * SCAN-CARDIAC STRIP (03/07/2024 12:11 AM DESIGN ASSEMBLER) us Scanner OTHER Final Result * SCAN-CARDIAC STRIP (03/07/2024 12:11 AM DESIGN ASSEMBLER) us Scanner OTHER Final Result * SCAN-CARDIAC STRIP (03/07/2024 12:11 AM DESIGN ASSEMBLER) us Scanner OTHER Final Result * BLOOD CULTURE (03/06/2024 9:34 PM DESIGN ASSEMBLER) Only the most recent of2 resultswithin the time period is included. CULTURE No Growth. 03/12/2024 1:50 AM DESIGN ASSEMBLER [facility] Blood BLOOD SPECIMEN / Unknown Venipuncture / Unknown 03/06/2024 9:34 PM DESIGN ASSEMBLER 03/06/2024 9:48 PM DESIGN ASSEMBLER Narrative [facility] - 03/12/2024 1:50 AM DESIGN ASSEMBLER Low volume blood culture received; possible false negative culture. us Haroon Sunshine MD MICROBIOLOGY Final Resu lt [facility] [address] [place] [address], [place] * PROCALCITONIN (03/06/2024 9:33 PM DESIGN ASSEMBLER) PROCALCITONIN 0.08 ng/ml 03/06/2024 10:21 PM DESIGN ASSEMBLER [facility] Blood BLOOD SPECIMEN / Unknown Butterfly / Unknown 03/06/2024 9:33 PM DESIGN ASSEMBLER 03/06/2024 9:48 PM DESIGN ASSEMBLER Narrative [facility] - 03/06/2024 10:21 PM DESIGN ASSEMBLER Procalcitonin for initial assessment of Lower Respiratory [...] Sunshine MD SEND OUTS Final Resu lt Performing Organization Address City/[facility]/ZIP Co de Phone Number [facility] SENDOUT INTERNAL ZIP [address] [place] [address] * SCAN-CARDIAC STRIP (03/06/2024 8:27 PM DESIGN ASSEMBLER) us Scanner OTHER Final Result * SCAN-CARDIAC STRIP (03/06/2024 8:27 PM DESIGN ASSEMBLER) us Scanner OTHER Final Result * SCAN-CARDIAC STRIP (03/06/2024 8:27 PM DESIGN ASSEMBLER) us Scanner OTHER Final Result * ANTINUCLEAR ANTIBODY BY IFA (03/06/2024 8:17 PM DESIGN ASSEMBLER) ANTINUCLEAR ANTIBODY (SALAZAR) Negative Negative 03/08/2024 12:50 PM DESIGN ASSEMBLER [facility] Blood BLOOD SPECIMEN / Unknown Venipuncture / Unknown 03/06/2024 8:17 PM DESIGN ASSEMBLER 03/06/2024 8:28 PM DESIGN ASSEMBLER Narrative [facility] - 03/08/2024 12:50 PM DESIGN ASSEMBLER Method: SALAZAR screen performed by (IFA) on HEP-2 substrate, IgG us Haroon Sunshine MD CHEMISTRY Final Resu lt [facility] [address] [place] [address], [place] * ANTI HBC (03/06/2024 8:17 PM DESIGN ASSEMBLER) ANTI HBC Non-React keon Non-React keon 03/07/2024 12:08 PM DESIGN ASSEMBLER [facility] Comment:Anti-HBc Antibodies not detected. Does not exclude the possibility of exposure to or infection with HBV. Levels of Anti-HBc may be below the cut-off in early infection. Blood BLOOD SPECIMEN / Unknown Venipuncture / Unknown 03/06/2024 8:17 PM DESIGN ASSEMBLER 03/06/2024 8:28 PM DESIGN ASSEMBLER us Mau CHAMORRO SEND OUTS Final Res ult [facility] [address] [place] [address], from Last 3 Months Insurance [facility] [address] [address] [employer] Advance Directives * Full Code (Latest Code Status on File) Date Activated Date Inactivated Comments 03/06/2024 7:57 PM 03/10/2024 4:02 PM Question Answer Comments Code Status Discussion: Reviewed Preferences Care Teams Cooling Pan Tender Relationship Specialty Start Date End Date Pcp, No . PCP - General 03/28/24
--- NOTE | 2024-05-29 13:56 | ED.CHESTPAIN ---
HPI - Chest Pain General Time Seen by Provider: 13:56 <Tricia Park MD - Last Filed: 05/31/24 16:41> Date Seen: 05/29/24 <Tricia Park MD - Last Filed: 05/31/24 16:41> Chief Complaint: Chest Pain <Tricia Park MD - Last Filed: 05/31/24 16:41> Stated Complaint: chest pain, fever <Tricia Park MD - Last Filed: 05/31/24 16:41> Time Seen by Provider: 05/29/24 13:41 <Tricia Park MD - Last Filed: 05/31/24 16:41> Source: patient, RN notes reviewed and old records reviewed <Tricia Park MD - Last Filed: 05/31/24 16:41> Mode of arrival: ambulatory <Tricia Park MD - Last Filed: 05/31/24 16:41> Limitations: no limitations <Tricia Park MD - Last Filed: 05/31/24 16:41> History of Present Illness HPI narrative: This 23-year-old male is coming in with concern of chest pain, fevers with history of pericarditis. He was sick with a sore throat last week for few days, started some ibuprofen. He was worried about precipitating recurrent pericarditis as he has had this. He is still maintained on colchicine. He had been on ibuprofen for about 3 weeks in March after he was seen here with pericarditis well on indomethacin and colchicine. He has seen Cardiology, has a follow-up scheduled at [facility] in [place] later this May. Over the weekend he started noticing some chest pressure, fevers, has turned into chest pain reminiscent of the pericarditis. His fevers are worsening. He did go back on ibuprofen, took a dose about an hour before coming in. Temperatures have been going up to a 102.5. He has had some intermittent left neck pain and headaches. He no longer has the sore throat. <Tricia Park MD - Last Filed: 05/31/24 16:41> MD complaint: chest pain <Tricia Park MD - Last Filed: 05/31/24 16:41> Related Data Home Medications: Home Medications ?Medication ?Instructions ?Recorded ?Confirmed colchicine 0.6 mg capsule 0.6 mg PO BID 03/29/24 03/29/24 omeprazole 20 mg capsule,delayed 20 mg PO BID 03/29/24 03/29/24 release Previous Rx's ?Medication ?Instructions ?Recorded ibuprofen 800 mg tablet (IBU) 800 mg PO Q8H #90 tabs 03/29/24 oxycodone 5 mg capsule 5 mg PO Q6H PRN pain #14 caps 03/29/24 pantoprazole 40 mg tablet,delayed 40 mg PO BID #60 tabs 03/29/24 release (Protonix) <Tricia Park MD - Last Filed: 05/31/24 16:41> Allergies/Adverse Reactions: Allergies Allergy/AdvReac Type Severity Reaction Status Date / Time No Known Drug Allergies Allergy Verified 05/29/24 17:02 <Tricia Park MD - Last Filed: 05/31/24 16:41> Review of Systems Status of ROS Reports: 6 or more systems reviewed and unremarkable except as noted in History and below <Tricia Park MD - Last Filed: 05/31/24 16:41> [facility] Medical History: Medical History (Updated 05/29/24 @ 19:18 by Tricia Park MD) Pericarditis ?I31.9 - Disease of pericardium, unspecified (ICD-10) <Tricia Park MD - Last Filed: 05/31/24 16:41> Social History: Social History Smoking Status: Current some day smoker What tobacco products do you use: cigarettes How often do you have a drink containing alcohol: monthly or less AUDIT-C Alcohol total score: 1 Non-prescribed substance use: denies use <Tricia Park MD - Last Filed: 05/31/24 16:41> Exam Const Vital Signs, click to edit/add: Vital Signs - 24 hr 05/29/24 13:40 05/29/24 14:42 05/29/24 14:45 Temperature 100.0 F H Pulse Rate 123 H 126 H Pulse Rate [Pulse Oximeter] 142 H Respiratory Rate 20 54 H 36 H Blood Pressure Blood Pressure [Right Upper Arm] 135/65 Pulse Oximetry 94 94 94 Oxygen Delivery Method Room Air 05/29/24 15:00 05/29/24 15:15 05/29/24 15:30 Temperature Pulse Rate 122 H 120 H 119 H Pulse Rate [Pulse Oximeter] Respiratory Rate 33 H 36 H 33 H Blood Pressure Blood Pressure [Right Upper Arm] Pulse Oximetry 94 94 94 Oxygen Delivery Method 05/29/24 15:45 05/29/24 16:00 05/29/24 16:15 Temperature Pulse Rate 119 H 116 H Pulse Rate [Pulse Oximeter] Respiratory Rate 32 H 38 H 37 H Blood Pressure Blood Pressure [Right Upper Arm] Pulse Oximetry 93 94 Oxygen Delivery Method 05/29/24 16:30 05/29/24 16:32 05/29/24 16:33 Temperature 99.2 F Pulse Rate 117 H 118 H Pulse Rate [Pulse Oximeter] Respiratory Rate 40 H 36 H Blood Pressure 106/79 106/79 Blood Pressure [Right Upper Arm] Pulse Oximetry 92 93 Oxygen Delivery Method 05/29/24 16:45 05/29/24 18:10 05/29/24 18:15 Temperature Pulse Rate 116 H 124 H 117 H Pulse Rate [Pulse Oximeter] Respiratory Rate 29 H Blood Pressure Blood Pressure [Right Upper Arm] Pulse Oximetry 95 94 95 Oxygen Delivery Method This patient is alert, interactive, no apparent distress. Do see some beads of sweat on his face, skin is warm and dry elsewhere. Sclera clear, conjugate gaze. Oropharynx shows normal mucosa, no exudates erythema, normal oral airway and posterior pharynx. Able to speak in complete sentences, speech is normal, no hoarseness. Neck supple, no adenopathy, no masses, full range of motion. Lungs are clear, good air entry, no wheezing or crackles, mild tachypnea right now but no accessory muscle use. CV regular rate and rhythm, no murmur, normal S1-S2. Do hears heart sounds, do not sound muffled. Abdomen is soft, nontender, nondistended, no organomegaly. Skin visualized without any rash. Patient did ambulate into the ED of his own accord. <Tricia Park MD - Last Filed: 05/31/24 16:41> Vital Signs - 24 hr 05/29/24 13:40 05/29/24 14:42 05/29/24 14:45 Temperature 100.0 F H Pulse Rate 123 H 126 H Pulse Rate [Pulse Oximeter] 142 H Respiratory Rate 20 54 H 36 H Blood Pressure Blood Pressure [Right Upper Arm] 135/65 Pulse Oximetry 94 94 94 Oxygen Delivery Method Room Air 05/29/24 15:00 05/29/24 15:15 05/29/24 15:30 Temperature Pulse Rate 122 H 120 H 119 H Pulse Rate [Pulse Oximeter] Respiratory Rate 33 H 36 H 33 H Blood Pressure Blood Pressure [Right Upper Arm] Pulse Oximetry 94 94 94 Oxygen Delivery Method 05/29/24 15:45 05/29/24 16:00 05/29/24 16:15 Temperature Pulse Rate 119 H 116 H Pulse Rate [Pulse Oximeter] Respiratory Rate 32 H 38 H 37 H Blood Pressure Blood Pressure [Right Upper Arm] Pulse Oximetry 93 94 Oxygen Delivery Method 05/29/24 16:30 05/29/24 16:32 05/29/24 16:33 Temperature 99.2 F Pulse Rate 117 H 118 H Pulse Rate [Pulse Oximeter] Respiratory Rate 40 H 36 H Blood Pressure 106/79 106/79 Blood Pressure [Right Upper Arm] Pulse Oximetry 92 93 Oxygen Delivery Method 05/29/24 16:45 05/29/24 18:10 05/29/24 18:15 Temperature Pulse Rate 116 H 124 H 117 H Pulse Rate [Pulse Oximeter] Respiratory Rate 29 H Blood Pressure Blood Pressure [Right Upper Arm] Pulse Oximetry 95 94 95 Oxygen Delivery Method <Nj Kaye MD - Last Filed: 05/29/24 18:39> Documenting provider has reviewed patient's vital signs: yes <Tricia Park MD - Last Filed: 05/31/24 16:41> Course Course ED Course: Patient's initial EKG on arrival does seem to be consistent with pericarditis on my review. Will compared to prior. Will get a portable chest x-ray, see if echo will be here this afternoon and certainly get 1 of possible today. Will get full complement of labs. He declines anything for fever pain at this time. Certainly seems to be consistent with recurrent pericarditis from a recent viral infection. Will do the triple viral swab just to see if it is any of these viruses. <Tricia Park MD - Last Filed: 05/31/24 16:41> Reevaluation(s) Time of Reevaluation #1: 16:24 <Tricia Park MD - Last Filed: 05/31/24 16:41> Reevaluation #1: Patient is resting, still mildly tachycardic. He has been requiring some oxycodone to sleep, took it last night. He had some left over from his March episode of pericarditis. Did review with him that he would be going into the hospital. Will give him some Toradol now, will continue on ibuprofen 800 mg 3 times a day. Will put him on proton pump inhibitor for gastric protection. <Tricia Park MD - Last Filed: 05/31/24 16:41> Time of Reevaluation #2: 16:41 <Tricia Park MD - Last Filed: 05/31/24 16:41> Reevaluation #2: Did speak with hospitalist Joy Muñiz, patient's most recent vital shows respiratory rate is up a little higher at 40, O2 sats are 92%. His pulse actually is down to 117, blood pressures come down to 106/79. He had blood pressures in March that were within this range. Given the change in his respiratory status, will do chest CT PE protocol, rule out any thromboembolic disease, will look at the lung parenchyma quite closely to rule out infectious etiology. Reviewed this with the patient, he is in agreement to do the chest CT imaging. He does not want hospitalization, would prefer to return for outpatient echo tomorrow. Will discuss this with him further once we have CT imaging back. There certainly may be coverage issues for insurance for an outpatient resolved, there certainly will be issues with who is responsible for the results, we will discuss all this more if it becomes an issue. We certainly may find something on CT imaging that will make this discussion not relevant, await CT results at this time. <Tricia Park MD - Last Filed: 05/31/24 16:41> Consultations Consultation #1: Have spoken with [facility] physician on-call Dr. Umaña. He does not believe this patient needs to transfer. Patient had a TSH done in March, SALAZAR was negative in February 2024. Outside of standard labs, he does not have anything else that he would add. He believes patient has a new viral infection precipitating this. He would do the high-dose NSAIDs, repeat echo tomorrow, continue colchicine. If patient has a large pericardial effusion, could consider diagnostic pericardiocentesis for which we can contact them back. At this point, he does not feel patient needs to transfer. I will update the patient. 6:58 p.m.: Did page Dr. Umaña back is our hospitalist is quite reluctant to take this patient. Went over new ultrasound point of care bedside cardiac findings, CT findings, hospitalist concerns. He does agree to accept this patient, there can be up to 8 hour bed delay at this time. Did update patient, he is not sure about his insurance, he is going to call and check on this. Have advised patient that I highly recommend hospitalization. His pain is controlled at this time. Will allow him to eat. <Tricia Park MD - Last Filed: 05/31/24 16:41> Time: 16:07 <Tricia Park MD - Last Filed: 05/31/24 16:41> Vital Signs Vital signs: Initial Vital Signs Temperature 100.0 F H 05/29/24 13:40 Temperature Source Oral 05/29/24 13:40 Pulse Rate 142 H 05/29/24 13:40 Respiratory Rate 20 05/29/24 13:40 Blood Pressure 135/65 05/29/24 13:40 Blood Pressure Mean 88 05/29/24 13:40 Pulse Oximetry 94 05/29/24 13:40 Oxygen Delivery Method Room Air 05/29/24 13:40 Vital Signs Temperature 100.0 F H 05/29/24 13:40 Pulse Rate 142 H 05/29/24 13:40 Respiratory Rate 20 05/29/24 13:40 Blood Pressure 135/65 05/29/24 13:40 Pulse Oximetry 94 05/29/24 13:40 Oxygen Delivery Method Room Air 05/29/24 13:40 Temperature 98.7 F 05/29/24 21:07 Pulse Rate 109 H 05/30/24 00:00 Respiratory Rate 16 05/30/24 00:00 Blood Pressure 102/87 05/30/24 00:00 Pulse Oximetry 88 05/30/24 00:00 Oxygen Delivery Method Room Air 05/30/24 00:00 <Tricia Park MD - Last Filed: 05/31/24 16:41> Initial Vital Signs Temperature 100.0 F H 05/29/24 13:40 Temperature Source Oral 05/29/24 13:40 Pulse Rate 142 H 05/29/24 13:40 Respiratory Rate 20 05/29/24 13:40 Blood Pressure 135/65 05/29/24 13:40 Blood Pressure Mean 88 05/29/24 13:40 Pulse Oximetry 94 05/29/24 13:40 Oxygen Delivery Method Room Air 05/29/24 13:40 Vital Signs Temperature 100.0 F H 05/29/24 13:40 Pulse Rate 142 H 05/29/24 13:40 Respiratory Rate 20 05/29/24 13:40 Blood Pressure 135/65 05/29/24 13:40 Pulse Oximetry 94 05/29/24 13:40 Oxygen Delivery Method Room Air 05/29/24 13:40 Temperature 98.7 F 05/29/24 21:07 Pulse Rate 109 H 05/30/24 00:00 Respiratory Rate 16 05/30/24 00:00 Blood Pressure 102/87 05/30/24 00:00 Pulse Oximetry 88 05/30/24 00:00 Oxygen Delivery Method Room Air 05/30/24 00:00 <Nj Kaye MD - Last Filed: 05/29/24 18:39> Medications Administered Medications: Discontinued Medications Generic Name Dose Route Start Last Admin Trade Name Freq PRN Reason Stop Dose Admin Ibuprofen 800 mg 05/29/24 20:35 05/29/24 20:53 Ibuprofen 400 Mg Tablet PO 800 mg TIDWM MILLICENT Administration Ketorolac Tromethamine 15 mg 05/29/24 16:26 05/29/24 16:34 Ketorolac 15 Mg/Ml Inj IVP 05/29/24 16:27 15 mg ONCE ONE Administration Ketorolac Tromethamine 15 mg 05/29/24 20:32 05/29/24 20:54 Ketorolac 15 Mg/Ml Inj IVP 06/02/24 20:31 15 mg Q6H PRN Administration Omeprazole 20 mg 05/29/24 21:00 05/29/24 20:52 Omeprazole [address] PO 20 mg BID MILLICENT Administration Oxycodone HCl 5 mg 05/29/24 20:32 05/30/24 00:59 Oxycodone 5 Mg Tablet PO 5 mg Q4H PRN Administration <Tricia Park MD - Last Filed: 05/31/24 16:41> Discontinued Medications Generic Name Dose Route Start Last Admin Trade Name Freq PRN Reason Stop Dose Admin Ibuprofen 800 mg 05/29/24 20:35 05/29/24 20:53 Ibuprofen 400 Mg Tablet PO 800 mg TIDWM MILLICENT Administration Ketorolac Tromethamine 15 mg 05/29/24 16:26 05/29/24 16:34 Ketorolac 15 Mg/Ml Inj IVP 05/29/24 16:27 15 mg ONCE ONE Administration Ketorolac Tromethamine 15 mg 05/29/24 20:32 05/29/24 20:54 Ketorolac 15 Mg/Ml Inj IVP 06/02/24 20:31 15 mg Q6H PRN Administration Omeprazole 20 mg 05/29/24 21:00 05/29/24 20:52 Omeprazole [address] PO 20 mg BID MILLICENT Administration Oxycodone HCl 5 mg 05/29/24 20:32 05/30/24 00:59 Oxycodone 5 Mg Tablet PO 5 mg Q4H PRN Administration <Nj Kaye MD - Last Filed: 05/29/24 18:39> MDM - Chest Pain Lab Data Attestation: I reviewed the patient's lab results. <Tricia Park MD - Last Filed: 05/31/24 16:41> Labs: Lab Results 05/29/24 05/29/24 Range/Units 14:30 14:30 WBC 20.24 H (4.50-11.00) K/uL RBC 5.69 (4.30-5.90) m/uL Hgb 15.1 (13.5-17.5) gm/dL Hct 44.2 (37.0-53.0) % MCV 78 L (80-100) fL MCH 27 (26-34) pg MCHC 34 (32-36) gm/dL RDW Coeff of Ford 13.7 (11.5-15.5) % Plt Count 260 (140-440) K/uL Neut % (Auto) 76.8 H (42.0-72.0) % Lymph % (Auto) 9.7 L (20-44) % Mower % (Auto) 12.0 H (0.0-11.0) % Eos % (Auto) 0.0 (0.0-7.0) % Baso % (Auto) 0.2 (0.0-3.0) % Neut # (Auto) 15.50 H (1.7-7.0) K/uL Lymph # (Auto) 2.00 (0.90-2.90) K/uL Mower # (Auto) 2.40 H (0.00-0.90) K/UL Eos # (Auto) 0.00 (0.00-0.50) K/uL Baso # (Auto) 0.00 (0.00-0.30) K/uL Abs Immat Gran (auto) 0.30 (0.00-0.30) K/uL Imm/Tot Granulo (auto) 1.3 % ESR 40 H (2-15) mm/hr Sodium 134 L (135-149) mmol/L Potassium 3.8 (3.6-5.1) mmol/L Chloride 100 (96-114) mmol/L Carbon Dioxide 22 (20-32) mmol/L Anion Gap 12 (7-15) mEq/L BUN 10 (5-24) mg/dL Creatinine 0.7 (0.5-1.5) mg/dL Estimated Creat Clear 166.93 Estimated GFR 134 ml/min Glucose 107 (60-115) mg/dL Lactate 1.1 (0.5-1.9) mmol/L Calcium 9.3 (8.4-10.6) mg/dL Total Bilirubin 1.6 H (0.1-1.5) mg/dL AST 17 (12-35) U/L ALT 24 (4-50) U/L Alkaline Phosphatase 57 (40-150) U/L Troponin I 0.06 H* (0.01-0.04) ng/mL C-Reactive Protein Cancelled 39.7 H NT-Pro-B Natriuret Pep 572 pg/mL Total Protein 7.9 (6.0-8.3) g/dL Albumin 4.5 (3.3-5.0) g/dL SARS-CoV-2 (PCR) Negative SARS-CoV-2 (Negative) Influenza Type A (PCR) Negative PCR FLU A (Negative) Influenza Type B (PCR) Negative PCR FLU B (Negative) RSV (PCR) Negative PCR RSV (Negative) <Tricia Park MD - Last Filed: 05/31/24 16:41> Lab Results 05/29/24 05/29/24 Range/Units 14:30 14:30 WBC 20.24 H (4.50-11.00) K/uL RBC 5.69 (4.30-5.90) m/uL Hgb 15.1 (13.5-17.5) gm/dL Hct 44.2 (37.0-53.0) % MCV 78 L (80-100) fL MCH 27 (26-34) pg MCHC 34 (32-36) gm/dL RDW Coeff of Ford 13.7 (11.5-15.5) % Plt Count 260 (140-440) K/uL Neut % (Auto) 76.8 H (42.0-72.0) % Lymph % (Auto) 9.7 L (20-44) % Mower % (Auto) 12.0 H (0.0-11.0) % Eos % (Auto) 0.0 (0.0-7.0) % Baso % (Auto) 0.2 (0.0-3.0) % Neut # (Auto) 15.50 H (1.7-7.0) K/uL Lymph # (Auto) 2.00 (0.90-2.90) K/uL Mower # (Auto) 2.40 H (0.00-0.90) K/UL Eos # (Auto) 0.00 (0.00-0.50) K/uL Baso # (Auto) 0.00 (0.00-0.30) K/uL Abs Immat Gran (auto) 0.30 (0.00-0.30) K/uL Imm/Tot Granulo (auto) 1.3 % ESR 40 H (2-15) mm/hr Sodium 134 L (135-149) mmol/L Potassium 3.8 (3.6-5.1) mmol/L Chloride 100 (96-114) mmol/L Carbon Dioxide 22 (20-32) mmol/L Anion Gap 12 (7-15) mEq/L BUN 10 (5-24) mg/dL Creatinine 0.7 (0.5-1.5) mg/dL Estimated Creat Clear 166.93 Estimated GFR 134 ml/min Glucose 107 (60-115) mg/dL Lactate 1.1 (0.5-1.9) mmol/L Calcium 9.3 (8.4-10.6) mg/dL Total Bilirubin 1.6 H (0.1-1.5) mg/dL AST 17 (12-35) U/L ALT 24 (4-50) U/L Alkaline Phosphatase 57 (40-150) U/L Troponin I 0.06 H* (0.01-0.04) ng/mL C-Reactive Protein Cancelled 39.7 H NT-Pro-B Natriuret Pep 572 pg/mL Total Protein 7.9 (6.0-8.3) g/dL Albumin 4.5 (3.3-5.0) g/dL SARS-CoV-2 (PCR) Negative SARS-CoV-2 (Negative) Influenza Type A (PCR) Negative PCR FLU A (Negative) Influenza Type B (PCR) Negative PCR FLU B (Negative) RSV (PCR) Negative PCR RSV (Negative) <Nj Kaye MD - Last Filed: 05/29/24 18:39> Imaging Data Chest x-ray: Attestation: I have reviewed the pertinent imaging results. <Tricia Park MD - Last Filed: 05/31/24 16:41> Radiologist's impression: Patient: JIMMY GUTIERREZ Facility:?[facility] Patient ID:?[id number] Site Patient ID:?[id number]. Site :?[id number] Study:?XRay-Chest Left 1 VIEW PORTABLE-05/29/2024 2:44:17 PM Ordering Physician:?Xavier Clarke Final Report: INDICATION: Chest pain. COMPARISON: 03/28/2024 chest radiograph TECHNIQUE: Single frontal radiographic view(s) of the chest. FINDINGS: Low lung volumes. No large pleural effusion. Faint bibasilar pulmonary opacity which may represent atelectasis in the context of low lung volumes, although consolidation cannot be excluded. Similar mild prominence of the cardiac silhouette, possibly due to low lung volumes. No acute osseous findings. IMPRESSION: Low lung volumes. No large pleural effusion. Faint bibasilar pulmonary opacity which may represent atelectasis in the context of low lung volumes, although consolidation cannot be excluded. Similar mild prominence of the cardiac silhouette, possibly due to low lung volumes. Dictated by Toby Biggs MD @ 05/29/2024 2:52:39 PM (Electronic Signature) <Tricia Park MD - Last Filed: 05/31/24 16:41> CT scan - chest: Attestation: I have reviewed the pertinent imaging results. <Tricia Park MD - Last Filed: 05/31/24 16:41> Radiologist's impression: Patient: JIMMY UGTIERREZ Facility:?[facility] Patient ID:?[id number] Site Patient ID:?[id number]. Site :?2002 Study:?CT-Chest Angio 95CC ISOVUE-05/29/2024 5:04:41 PM Ordering Physician:Ralph Clarke Final Report: Indication: Fever, decreasing oxygen/not hypoxic, pericarditis, new illn Technique: CTA chest, pulmonary embolism protocol, utilizing 95 mL Isovue 370 Comparison: CTA chest on 03/06/2024 Findings: HEART and MEDIASTINUM: The heart size is normal. There is a moderate pericardial effusion, slightly increased in size compared to prior exam. There is reduction in size in the previously visualized mass at the right pericardiophrenic angle measuring approximally 2.2 centimeters in greatest dimension (previously 3.6 x 2.6 x 3.6 centimeters). 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 PULMONARY ARTERIAL CIRCULATION: No pulmonary embolus. LUNGS and PLEURAL SPACES: Small bilateral pleural effusions. [id number] bibasilar atelectasis. Otherwise, no focal airspace consolidation. No pneumothorax. No suspicious osseous lesions. The airways are clear. VISUALIZED UPPER ABDOMEN: Hepatic steatosis. Otherwise, the limited visualized upper abdominal structures appear normal. OSSEOUS STRUCTURES: Age-appropriate appearance. No acute fracture or destructive process. TUBES and LINES: None Impression: 1. No pulmonary embolism. 2. There is a moderate pericardial effusion, slightly increased in size compared to prior exam. 3. Small bilateral pleural effusions with bibasilar atelectatic lung. 4. There is reduction in size in the previously visualized mass at the right pericardiophrenic angle measuring approximally 2.2 centimeters in greatest dimension (previously 3.6 x 2.6 x 3.6 centimeters), favored to represent a resolved pericardial cyst. 5. 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 Please note that all CT scans at this facility use dose modulation, iterative reconstruction, and/or weight-based dosing when appropriate to reduce radiation dose to as low as reasonably achievable. Dictated by Davy Adamson MD @ 05/29/2024 5:23:35 PM (Electronic Signature) <Tricia Park MD - Last Filed: 05/31/24 16:41> ECG Data Attestation: I personally reviewed and interpreted this ECG as follows: (Sinus tachycardia, 132 beats per minute. Diffuse ST elevation, probable recurrent pericarditis.) <Tricia Park MD - Last Filed: 05/31/24 16:41> ECG interpretation date: 05/29/24 <Tricia Park MD - Last Filed: 05/31/24 16:41> ECG interpretation time: 14:01 <Tricia Park MD - Last Filed: 05/31/24 16:41> Prior ECG tracings: available for review <Tricia Park MD - Last Filed: 05/31/24 16:41> Discharge Plan Discharge Clinical Impression: Pericarditis <Tricia Park MD - Last Filed: 05/31/24 16:41> Patient Disposition: [facility] <Tricia Park MD - Last Filed: 05/31/24 16:41> Prescriptions: No Action ibuprofen [IBU] 800 mg tablet 800 mg PO Q8H Qty: 90 2RF pantoprazole [Protonix] 40 mg tablet,delayed release (DR/EC) 40 mg PO BID Qty: 60 0RF omeprazole 20 mg capsule,delayed release(DR/EC) 20 mg PO BID colchicine 0.6 mg capsule 0.6 mg PO BID oxycodone 5 mg capsule 5 mg PO Q6H PRN (Reason: pain) Qty: 14 0RF <Tricia Park MD - Last Filed: 05/31/24 16:41> Stand Alone Forms: MyHealth Info Instructions <Tricia Park MD - Last Filed: 05/31/24 16:41> Procedures Ultrasound Cardiac exam #1: Anatomical areas examined: parasternal long, parasternal short and apical 4 chamber <Nj Kaye MD - Last Filed: 05/29/24 18:39> Indications: chest pain and other (He pericarditis, [place] effusion) <Nj Kaye MD - Last Filed: 05/29/24 18:39> Exam type: limited transthoracic echocardiogram <Nj Kaye MD - Last Filed: 05/29/24 18:39> Findings: pericardial effusion (size) (6-8 mm in thickness. No tamponade. generally normal EF) <Nj Kaye MD - Last Filed: 05/29/24 18:39> Impression: pericardial effusion <Nj Kaye MD - Last Filed: 05/29/24 18:39>
--- NOTE | 2024-05-29 14:02 | CRLHL7_ITS ---
For Patients: As a result of the Cures Act, medical imaging exams and procedure reports are released immediately into your electronic medical record. You may view this report before your referring provider. If you have questions, please contact your health care provider. INDICATION: Chest pain. COMPARISON: 03/28/2024 chest radiograph TECHNIQUE: Single frontal radiographic view(s) of the chest. FINDINGS: Low lung volumes. No large pleural effusion. Faint bibasilar pulmonary opacity which may represent atelectasis in the context of low lung volumes, although consolidation cannot be excluded. Similar mild prominence of the cardiac silhouette, possibly due to low lung volumes. No acute osseous findings. IMPRESSION: Low lung volumes. No large pleural effusion. Faint bibasilar pulmonary opacity which may represent atelectasis in the context of low lung volumes, although consolidation cannot be excluded. Similar mild prominence of the cardiac silhouette, possibly due to low lung volumes. Dictated by Toby Biggs MD @ 05/29/2024 2:52:39 PM (Electronically Signed)
[2024-05-29 14:40] LABS: Lactate* 1.1 mmol/L (0.5-1.9)
[2024-05-29 14:43] LABS: Basophils Percent Auto 0.2 % (0.0-3.0); Hematocrit 44.2 % (37.0-53.0); Hemoglobin* 15.1 gm/dL (13.5-17.5); Immature Granulocytes Pct Auto 1.3 %; Lymphocytes Percent Auto 9.7 % (20-44); Mean Corpuscular HGB Conc 34 gm/dL (32-36); Mean Corpuscular Hemoglobin 27 pg (26-34); Mean Corpuscular Volume 78 fL (80-100); Neutrophils Percent Auto 76.8 % (42.0-72.0); Platelet Count* 260 K/uL (140-440); RDW Coefficient of Variation % 13.7 % (11.5-15.5); Red Blood Count 5.69 m/uL (4.30-5.90); White Blood Count* 20.24 K/uL (4.50-11.00)
[2024-05-29 14:53] LABS: Slide Review Reflex No
[2024-05-29 15:13] LABS: Albumin* 4.5 g/dL (3.3-5.0); Chloride* 100 mmol/L (96-114)
[2024-05-29 15:14] LABS: Potassium* 3.8 mmol/L (3.6-5.1); Sodium* 134 mmol/L (135-149)
[2024-05-29 15:16] LABS: Anion Gap 12 mEq/L (7-15); Bilirubin Total* 1.6 mg/dL (0.1-1.5); Blood Urea Nitrogen* 10 mg/dL (5-24); Carbon Dioxide* 22 mmol/L (20-32); Creatinine* 0.7 mg/dL (0.5-1.5); Est. Creatinine Clearance* 166.93; Estimated Glomerular Filt Rate 134 ml/min
[2024-05-29 15:17] LABS: Alanine Aminotransferase* 24 U/L (4-50); Alkaline Phosphatase* 57 U/L (40-150); Aspartate Amino Transferase* 17 U/L (12-35); Calcium* 9.3 mg/dL (8.4-10.6); Glucose* 107 mg/dL (60-115); Total Protein* 7.9 g/dL (6.0-8.3)
[2024-05-29 15:19] LABS: PCR FLU A Negative PCR FLU A (Negative); PCR FLU B Negative PCR FLU B (Negative); PCR RSV Negative PCR RSV (Negative); SARS PCR* Negative SARS-CoV-2 (Negative)
[2024-05-29 15:47] LABS: NT Pro B Type NatriureticPept* 572 pg/mL; Troponin I* 0.06 ng/mL (0.01-0.04)
[2024-05-29 16:16] LABS: Erythrocyte SedimentationRate* 40 mm/hr (2-15)
[2024-05-29 16:21] LABS: C Reactive Protein* 39.7 mg/dL (0.5-1.0)
[2024-05-29] MEDS: KETOROLAC 15 MG/ML inj IVP ×2 (16:34→20:54)
--- NOTE | 2024-05-29 16:37 | CRLHL7_ITS ---
For Patients: As a result of the Century Cures Act, medical imaging exams and procedure reports are released immediately into your electronic medical record. You may view this report before your referring provider. If you have questions, please contact your health care provider. Indication: Fever, decreasing oxygen/not hypoxic, pericarditis, new illn Technique: CTA chest, pulmonary embolism protocol, utilizing 95 mL Isovue 370 Comparison: CTA chest on 03/06/2024 Findings: HEART and MEDIASTINUM: The heart size is normal. There is a moderate pericardial effusion, slightly increased in size compared to prior exam. There is reduction in size in the previously visualized mass at the right pericardiophrenic angle measuring approximally 2.2 centimeters in greatest dimension (previously 3.6 x 2.6 x 3.6 centimeters). 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 PULMONARY ARTERIAL CIRCULATION: No pulmonary embolus. LUNGS and PLEURAL SPACES: Small bilateral pleural effusions. [id number] bibasilar atelectasis. Otherwise, no focal airspace consolidation. No pneumothorax. No suspicious osseous lesions. The airways are clear. VISUALIZED UPPER ABDOMEN: Hepatic steatosis. Otherwise, the limited visualized upper abdominal structures appear normal. OSSEOUS STRUCTURES: Age-appropriate appearance. No acute fracture or destructive process. TUBES and LINES: None Impression: 1. No pulmonary embolism. 2. There is a moderate pericardial effusion, slightly increased in size compared to prior exam. 3. Small bilateral pleural effusions with bibasilar atelectatic lung. 4. There is reduction in size in the previously visualized mass at the right pericardiophrenic angle measuring approximally 2.2 centimeters in greatest dimension (previously 3.6 x 2.6 x 3.6 centimeters), favored to represent a resolved pericardial cyst. 5. 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 Please note that all CT scans at this facility use dose modulation, iterative reconstruction, and/or weight-based dosing when appropriate to reduce radiation dose to as low as reasonably achievable. Dictated by Davy Adamson MD @ 05/29/2024 5:23:35 PM (Electronically Signed)
[2024-05-29] MEDS: OMEPRAZOLE 20 MG CAPSULE DR PO (20:52)
[2024-05-29] MEDS: OXYCODONE 5 MG TABLET PO (20:52)
[2024-05-29] MEDS: IBUPROFEN 400 MG TABLET 800 MG PO (20:53)
[2024-05-30] VITALS: BP 102/87; PULSE 109; RESP 16; O2SAT 88
[2024-05-30] MEDS: OXYCODONE 5 MG TABLET PO (00:59)
== END 2024-05-30 01:04 | disposition short-term general hospital (02) ==
PROVIDERS: Family Medicine; Emergency Provider Emergency Medicine; PCP Family Medicine
DX: I31.9 Disease of pericardium, unspecified (principal)
CPT/HCPCS: 36415; 71045; 71275; 76604; 76705; 80053; 83605; 83880; 84484; 85025; 85651; 86140; 87040; 87631; 93005; 93308; 94761; 96374; 96376; 99285; A9270; J1885; Q9967

== ENCOUNTER 2024-05-30 00:52 | Outpatient (CLI) | payer OTHER, SELFPAY | END 2024-05-30 00:53 | disposition home or self-care (01) | LOC: AMB 05-31 09:07 | PROVIDERS: PCP Family Medicine; Visit Provider Family Medicine | DX: R07.89 Other chest pain (principal) | CPT/HCPCS: A0425; A0427 ==